=== PATIENT | female | born 1975 | race Caucasian/White ===

== ENCOUNTER → 2016-10-12 | Outpatient (CLI) | payer OTHER ==
[~2016-10-12] MED LIST: GADAVIST IV PRN; LANS30CA12 PO; LEVO150C2 PO; LIOT1TAB10 PO; MEDR150I IM; METO25TA3 PO; MULT-506 PO; SNQ50 PO
--- NOTE | 2016-10-12 09:15 | DIAGNOSTIC IMAGING REPORT ---
MRI OF THE BRAIN COMBO CLINICAL HISTORY: Migraine headache. Skin tingling and numbness. COMPARISON STUDY: MRI of the brain dated 10/22/2008. TECHNIQUE: MRI of the brain was performed utilizing various T1 and T2-weighted sequences in the axial, sagittal, and coronal planes. Contrast-enhanced sequences were acquired following the administration of 9.5 cc of Gadavist. FINDINGS: Brain parenchyma: The brain parenchyma is normal in appearance. There is no hemorrhage or mass effect. There is no restricted diffusion to suggest acute ischemia. No enhancing mass lesion is identified on the postcontrast images. Garibay-white matter differentiation is preserved. No extra-axial fluid collection is seen. 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 The cerebellar tonsils are normal in configuration. Ventricles, sulci, and cisterns: Normal in configuration. Pituitary and sella: Unremarkable. Intracranial vasculature: Normal flow voids are maintained at the skull base. Orbits: The bony orbits are grossly intact. Orbital contents are normal in appearance. Sinuses and mastoids: Clear. Calvarium: Unremarkable. Cervical cord: Partially visualized cervical spinal cord is normal in morphology and signal intensity. IMPRESSION: No acute intracranial abnormality. Electronically signed by: Alex Sweeney M.D. 10/12/2016 9:13 AM Dictated Date/Time: 10/12/2016 9:11 AM
== END | disposition home or self-care (01) ==
LOC: C.MRI 08:18
PROVIDERS: ATTEND Psychiatry & Neurology Neurology
DX: G43.909 Migraine, unspecified, not intractable, without status migrainosus (principal); R20.0 Anesthesia of skin; R20.2 Paresthesia of skin; R20.8 Other disturbances of skin sensation

== ENCOUNTER 2016-12-21 16:23 | Inpatient (IN) | payer OTHER ==
[~2016-12-21] VITALS: Ht 172.7 cm; Wt 96.3 kg
[~2016-12-21 16:23] MED LIST changes: -GADAVIST IV PRN; +SULF800T23 PO
[2016-12-21] MEDS ORDERED: ONDANSETRON INJ 2 MG/ML 2 ML VIAL IV STA (16:40)
[2016-12-21] MEDS ORDERED: VANCOMYCIN 1GM/270ML NSS IV STA (16:40)
[2016-12-21] MEDS ORDERED: KETOROLAC TROMETHAMINE 30 MG/ML VIAL IV STA (16:40)
[2016-12-21] MEDS ORDERED: PIPERACILLIN/TAZOBACTAM 4.5 GM/100ML D5W IV STA (16:40)
[2016-12-21] MEDS ORDERED: SODIUM CHLORIDE 0.9% 1000ML 500 ML IV ONE (16:40)
[2016-12-21] MEDS ORDERED: OPTIRAY 320 IV PRN (17:00)
[2016-12-21] MEDS: MoRPHine SULFATE 4 MG/ML 1 ML CARP\\VIAL IV PRN ×3 (17:12→23:35)
[2016-12-21 17:18] LABS: ISTAT CREATININE 0.8 mg/dl (0.6-1.3); ISTAT HEMOGLOBIN 13.6 g/dl (12.0-16.0); ISTAT IONIZED CALCIUM 1.12 mmol/l (1.12-1.32)
[2016-12-21] MEDS ORDERED: DOXE150C PO (17:30)
[2016-12-21] MEDS ORDERED: FLX10 PO (17:30)
[2016-12-21] MEDS ORDERED: LEVE100021 PO (17:30)
[2016-12-21] MEDS ORDERED: TPRSR/25 PO (17:30)
[2016-12-21 17:40] LABS: BASO % 0.1 %; BASO ABS # 0.01 K/uL (0-0.2); COMPLETE YES; EOS % 0.3 %; IG% 0.1 %; LYMPH % 11.4 %; LYMPH ABS # 0.81 K/uL (1.2-3.4); MEAN CELL VOLUME 88.2 fL (80-100); MEAN CORPUSCULAR HEMOGLOBIN 31.1 pg (25-34); MEAN CORPUSCULAR HGB CONC 35.2 g/dl (32-36); MEAN PLATELET VOLUME 9.3 fL (7.4-10.4); MONO % 9.2 %; NEUT % 78.9 %; PLATELET COUNT 180 K/uL (130-400); RED BLOOD COUNT 4.76 M/uL (4.2-5.4); WHITE BLOOD COUNT 7.09 K/uL (4.8-10.8)
--- NOTE | 2016-12-21 17:44 | DIAGNOSTIC IMAGING REPORT ---
CT ANGIOGRAM OF THE CHEST CLINICAL HISTORY: Atypical chest pain. COMPARISON STUDY: No priors. TECHNIQUE: Following the IV administration of 91 cc of Optiray 320, CT angiogram of the chest was performed from the upper abdomen to the thoracic inlet utilizing the pulmonary embolus protocol. Images are reviewed in the axial, sagittal, and coronal planes. 3-D MIPS images are created and assessed. IV contrast was administered without complication. A dose lowering technique was utilized adhering to the principles of ALARA. CT DOSE: 451.81 mGy.cm FINDINGS: Thyroid: Markedly atrophic. Thoracic aorta: The thoracic aorta is normal in caliber and demonstrates 4-vessel variant arch anatomy. No dissection is seen. Pulmonary vasculature: The pulmonary trunk is normal in caliber. There are no filling defects identified in main, lobar, or segmental pulmonary branches to suggest pulmonary embolus. Heart: The heart is normal in size and configuration, and without pericardial effusion. Lungs and pleural spaces: There are trace pleural effusions. There is a 1.7 cm nodule in the right middle lobe with minimal central cavitation. Additional subcentimeter nodule in the right middle lobe as seen on image #112. Additional foci of similar-appearing nodularity are seen in the left lower lobe on images #65, #109, and #149, the right upper lobe on image #168, and in the left upper lobe on image #192. Significant dependent atelectasis is observed. The trachea and central airways are clear. Mediastinum: There is no mediastinal lymphadenopathy. Denise: Clear. Axillae: There is no axillary lymphadenopathy. Upper abdomen: There is a small hiatal hernia. Partially visualized upper abdominal viscera is otherwise within normal limits. Skeletal structures: No lytic or blastic bony lesions are seen. IMPRESSION: 1. There is no evidence of pulmonary embolus in the main, lobar, or segmental pulmonary arteries. 2. There are foci of irregular nodularity scattered throughout both lungs as above. The largest is seen in the right middle lobe and measures 1.7 cm, and contains central cavitation. This likely represents an infectious/inflammatory pneumonitis. Differential considerations include septic emboli, or much less likely vasculitis or neoplasm. Clinical correlation will be essential. Follow-up CT scan in 2-3 months time is recommended to document resolution. 3. There are trace pleural effusions. 4. No mediastinal or hilar adenopathy is seen. Electronically signed by: Alex Sweeney M.D. 12/21/2016 5:43 PM Dictated Date/Time: 12/21/2016 5:34 PM
[2016-12-21 17:49] LABS: PARTIAL THROMBOPLASTIN RATIO 1.1; PROTHROMBIN TIME (PATIENT) 11.2 SECONDS (9.0-12.0)
[2016-12-21 17:57] LABS: ALT/SGPT 159 U/L (12-78); AST/SGOT 95 U/L (15-37); BLOOD UREA NITROGEN 9 mg/dl (7-18); BUN/CREATININE RATIO 10.6 (10-20); CALCIUM 9.1 mg/dl (8.5-10.1); CARBON DIOXIDE 21 mmol/L (21-32); CHLORIDE 106 mmol/L (98-107); CREATININE 0.88 mg/dl (0.60-1.20); GLUCOSE 102 mg/dl (70-99); MAGNESIUM 2.2 mg/dl (1.8-2.4); POTASSIUM 3.5 mmol/L (3.5-5.1); SODIUM 137 mmol/L (136-145)
[2016-12-21 18:07] LABS: ALB/GLOB RATIO 0.8 (0.9-2); ALKALINE PHOSPHATASE 110 U/L (45-117)
[2016-12-21] MEDS ORDERED: SODIUM CHLORIDE 0.9% 1000ML 1,000 ML IV STA (18:11)
--- NOTE | 2016-12-21 18:17 | DIAGNOSTIC IMAGING REPORT ---
CHEST ONE VIEW PORTABLE CLINICAL HISTORY: Sepsis CHEST PAIN COMPARISON STUDY: No previous studies for comparison. FINDINGS: The heart is normal in size. There is no failure. There are mildly increased right basilar markings, atelectatic versus inflammatory.[ IMPRESSION: Increased right basilar markings, atelectatic versus inflammatory. Electronically signed by: Juan M Matthew M.D. 12/21/2016 6:16 PM Dictated Date/Time: 12/21/2016 6:14 PM
[2016-12-21 18:51] LABS: URINE APPEARANCE CLEAR (CLEAR); URINE BILIRUBIN NEG (NEG); URINE COLOR YELLOW; URINE EPITHELIAL CELL AUTO >30 /lpf (0-5); URINE NITRITE NEG (NEG); URINE PH 5.5 (4.5-7.5); URINE SPECIFIC GRAVITY > 1.045 (1.000-1.030); UROBILINOGEN NEG (NEG)
[2016-12-21 18:56] LABS: MANUAL MICROSCOPIC REQUIRED? NO; REVIEW REQ? YES
--- NOTE | 2016-12-21 19:00 | EMERGENCY ROOM VISIT NOTE ---
History Report prepared by Tim: Carlos Shay Under the Supervision of: Dr. Alex Valencia M.D. First contact with patient: 16:35 Chief Complaint: CARDIAC ASSESSMENT Stated Complaint: SPIDER BITE, CHEST PAIN Nursing Triage Summary: pt reports 1 week ago bit by a spider started on abx for this on Sat. today started with R side cp today that radiates into back , nothing makes it feel better , hurts to take a deep breath History of Present Illness The patient is a 41 year old female who presents to the Emergency Room with complaints of a constant right sided chest pain that began at 1500. She rates her pain as a 9/10 in severity. She reports that her pain is worsened with a deep breath. The patient states that she received a bite over a week ago on her right lower extremity, which she believes is from a spider. She states that the site of the bite was about a dime size a week ago. She reports that the site worsened and her leg became swollen, which prompted her to report to the [facility] two days ago. The patient states that they gave her Bactrim, she has had 5 doses. She states that they told her that if her symptoms became worse, she needed to report to the ED. The patient reports that last night she started to experience a headache, which she took her migraine medication for. She states that she also noticed that her bite site was burning. The patient states last night she experienced diaphoresis and was "soaked in sweat". She states that today, she started to experience right sided chest pain and headache, which prompted her to report to the ED. The patient states that her headache is not similar to her normal migraines, because her migraines are one sided and her current headache is all around her head. She reports that if she sneezes or coughs, her headache worsens. The patient admits that she ate today and took her regular medication. She reports that she has a history of PVCs, thyroidectomy, and migraines. The patient denies medication allergies, fever, diarrhea, vomiting, taking a blood thinner, any recent travel , and a history of blood clots in her lungs or legs. Source of History: patient Onset: 1500 Position: chest (right) Symptom Intensity: 9/10 Timing: constant Associated Symptoms: + headache, + diaphoresis, + rash, No fevers, No vomiting, No diarrhea Review of Systems See HPI for pertinent positives & negatives. A total of 10 systems reviewed and were otherwise negative. Past Medical & Surgical Medical Problems: (1) Lowe's Esophagus (2) Hypertension Nos (3) Hypothyroidism Nos (4) Migraines (5) Reflux Esophagitis (6) Umbilical Hernia Surgical Problems: (1) History of umbilical hernia repair Family History FH: hypertension Social History Smoking Status: Never Smoker Alcohol Use: none Marital Status: Occupation Status: employed Current/Historical Medications Scheduled Cyclobenzaprine HCl (Cyclobenzaprine HCl), 1 TAB PO TID Doxepin Hcl (Doxepin), 1 CAP PO HS Levetiracetam (Levetiracetam), 1 TAB PO BID Levothyroxine Sodium (Tirosint), 1 CAP PO DAILY Metoprolol Succinate (Metoprolol Succinate ER), 1 TAB PO DAILY Multivitamin (Multivitamin), 1 TAB PO DAILY Sulfa/Trimethoprim (Bactrim Ds 800MG/160MG), 1 TAB PO BID Allergies Coded Allergies: NO KNOWN DRUG ALLERGIES (Verified Allergy, Unknown, ., 12/21/16) Physical Exam Vital Signs Date Time Temp Pulse Resp B/P (MAP) Pulse Ox O2 Delivery O2 Flow Rate FiO2 12/21/16 20:00 149/118 12/21/16 18:23 110 16 99 12/21/16 18:23 110 16 99 12/21/16 18:22 105 18 153/102 100 Room Air 12/21/16 18:21 153/102 12/21/16 18:21 153/102 12/21/16 18:18 112 14 99 12/21/16 18:13 108 17 98 12/21/16 18:08 113 17 98 12/21/16 18:03 108 14 100 12/21/16 17:58 109 12 99 12/21/16 17:53 106 13 100 12/21/16 17:53 106 13 100 12/21/16 17:48 108 14 100 12/21/16 17:43 112 17 100 12/21/16 17:38 116 22 142/90 98 12/21/16 17:38 142/90 12/21/16 17:37 113 18 142/90 99 Room Air 12/21/16 17:18 123 19 100 12/21/16 17:16 99 Nasal Cannula 2.0 12/21/16 17:13 129 18 159/97 99 Nasal Cannula 2.0 12/21/16 17:13 127 20 99 12/21/16 17:11 159/97 12/21/16 17:11 159/97 12/21/16 17:08 125 20 12/21/16 17:05 137 12/21/16 16:30 36.5 150 20 134/81 98 Room Air Physical Exam GENERAL: Patient is in moderate distress secondary to pain. HEENT: No acute trauma, normocephalic atraumatic, mucous membranes moist, no nasal congestion, no scleral icterus. NECK: No stridor, no adenopathy, no meningismus, trachea is midline. LUNGS: Clear to auscultation bilaterally, no wheeze, no rhonchi, breath sounds equal. HEART: Tachycardia with regular rhythm and no murmurs. ABDOMEN: Soft, nontender, bowel sounds positive, no hernias, no peritonitis. EXTREMITIES: Right lower extremity is swollen compared to left. Erythematous, draining, tender lesion to the anterior proximal leg. Outlined area of redness has spread beyond the borders. NEUROLOGIC: Oriented x 3, no acute motor or sensory deficits, no focal weakness. SKIN: No rash, no jaundice, no diaphoresis. Medical Decision & Procedures ER Provider Diagnostic Interpretation: Radiology results as stated below per my review and radiologist interpretation: CT ANGIOGRAM OF THE CHEST CLINICAL HISTORY: Atypical chest pain. COMPARISON STUDY: No priors. TECHNIQUE: Following the IV administration of 91 cc of Optiray 320, CT angiogram of the chest was performed from the upper abdomen to the thoracic inlet utilizing the pulmonary embolus protocol. Images are reviewed in the axial, sagittal, and coronal planes. 3-D MIPS images are created and assessed. IV contrast was administered without complication. A dose lowering technique was utilized adhering to the principles of ALARA. CT DOSE: 451.81 mGy.cm FINDINGS: Thyroid: Markedly atrophic. Thoracic aorta: The thoracic aorta is normal in caliber and demonstrates 4-vessel variant arch anatomy. No dissection is seen. Pulmonary vasculature: The pulmonary trunk is normal in caliber. There are no filling defects identified in main, lobar, or segmental pulmonary branches to suggest pulmonary embolus. Heart: The heart is normal in size and configuration, and without pericardial effusion. Lungs and pleural spaces: There are trace pleural effusions. There is a 1.7 cm nodule in the right middle lobe with minimal central cavitation. Additional subcentimeter nodule in the right middle lobe as seen on image #112. Additional foci of similar-appearing nodularity are seen in the left lower lobe on images #65, #109, and #149, the right upper lobe on image #168, and in the left upper lobe on image #192. Significant dependent atelectasis is observed. The trachea and central airways are clear. Mediastinum: There is no mediastinal lymphadenopathy. Denise: Clear. Axillae: There is no axillary lymphadenopathy. Upper abdomen: There is a small hiatal hernia. Partially visualized upper abdominal viscera is otherwise within normal limits. Skeletal structures: No lytic or blastic bony lesions are seen. IMPRESSION: 1. There is no evidence of pulmonary embolus in the main, lobar, or segmental pulmonary arteries. 2. There are foci of irregular nodularity scattered throughout both lungs as above. The largest is seen in the right middle lobe and measures 1.7 cm, and contains central cavitation. This likely represents an infectious/inflammatory pneumonitis. Differential considerations include septic emboli, or much less likely vasculitis or neoplasm. Clinical correlation will be essential. Follow-up CT scan in 2-3 months time is recommended to document resolution. 3. There are trace pleural effusions. 4. No mediastinal or hilar adenopathy is seen. Electronically signed by: Alex Sweeney M.D. 12/21/2016 5:43 PM Dictated Date/Time: 12/21/2016 5:34 PM CHEST ONE VIEW PORTABLE CLINICAL HISTORY: Sepsis CHEST PAIN COMPARISON STUDY: No previous studies for comparison. FINDINGS: The heart is normal in size. There is no failure. There are mildly increased right basilar markings, atelectatic versus inflammatory.[ IMPRESSION: Increased right basilar markings, atelectatic versus inflammatory. Electronically signed by: Juan M Matthew M.D. 12/21/2016 6:16 PM Dictated Date/Time: 12/21/2016 6:[address] RIGHT LOWER LEG NO CONTRAST CT DOSE: 260.71 mGy.cm CLINICAL HISTORY: Leg swelling. Spider bite. Possible necrotizing fasciitis. TECHNIQUE: Helical images were acquired in the transverse plane. No intravenous contrast was administered. Sagittal and coronal reformatted images were acquired. A dose lowering technique was utilized adhering to the principles of ALARA. COMPARISON STUDY: None. FINDINGS: No fractures are visualized. There are no destructive lesions to indicate acute osteomyelitis. There is skin thickening and infiltration of the subcutaneous fat involving the anterior lower leg. This is most pronounced anteromedially 7 cm inferior to the tibial plafond where there is a 1.5 cm ill-defined soft tissue density contiguous with overlying cutaneous thickening. Given the limitations of a noncontrast study, there are no fluid collections to indicate a drainable abscess. No air is visualized within the soft tissues to indicate a necrotizing fasciitis. IMPRESSION: 1. No evidence of fracture 2. No evidence of osteomyelitis 3. There is no air within the soft tissues to indicate a necrotizing fasciitis 4. Skin thickening and infiltration the subcutaneous fat involving the anterior lower leg. This is most pronounced 7 cm inferior to the tibial plafond. Given the clinical history, the findings are likely infectious/inflammatory Electronically signed by: Juan M Matthew M.D. 12/21/2016 7:05 PM Dictated Date/Time: 12/21/2016 6:59 PM Laboratory Results 12/21/16 17:00 Red Blood Count 4.76, Mean Corpuscular Volume 88.2, Mean Corpuscular Hemoglobin 31.1, Mean Corpuscular Hemoglobin Concent 35.2, Mean Platelet Volume 9.3, Neutrophils (%) (Auto) 78.9, Lymphocytes (%) (Auto) 11.4, Monocytes (%) (Auto) 9.2, Eosinophils (%) (Auto) 0.3, Basophils (%) (Auto) 0.1, Neutrophils # (Auto) 5.59, Lymphocytes # (Auto) 0.81, Monocytes # (Auto) 0.65, Eosinophils # (Auto) 0.02, Basophils # (Auto) 0.01 12/21/16 17:00 Test 12/21/16 17:00 12/21/16 17:04 12/21/16 17:08 12/21/16 18:35 White Blood Count 7.09 K/uL (4.8-10.8) Red Blood Count 4.76 M/uL (4.2-5.4) Hemoglobin 14.8 g/dL (12.0-16.0) Hematocrit 42.0 % (37-47) Mean Corpuscular Volume 88.2 fL (80-100) Mean Corpuscular Hemoglobin 31.1 pg (25-34) Mean Corpuscular Hemoglobin Concent 35.2 g/dl (32-36) Platelet Count 180 K/uL (130-400) Mean Platelet Volume 9.3 fL (7.4-10.4) Neutrophils (%) (Auto) 78.9 % Lymphocytes (%) (Auto) 11.4 % Monocytes (%) (Auto) 9.2 % Eosinophils (%) (Auto) 0.3 % Basophils (%) (Auto) 0.1 % Neutrophils # (Auto) 5.59 K/uL (1.4-6.5) Lymphocytes # (Auto) 0.81 K/uL (1.2-3.4) Monocytes # (Auto) 0.65 K/uL (0.11-0.59) Eosinophils # (Auto) 0.02 K/uL (0-0.5) Basophils # (Auto) 0.01 K/uL (0-0.2) RDW Standard Deviation 42.0 fL (36.4-46.3) RDW Coefficient of Variation 13.0 % (11.5-14.5) Immature Granulocyte % (Auto) 0.1 % Immature Granulocyte # (Auto) 0.01 K/uL (0.00-0.02) Prothrombin Time 11.2 SECONDS (9.0-12.0) Prothromb Time International Ratio 1.0 (0.9-1.1) Activated Partial Thromboplast Time 28.5 SECONDS (21.0-31.0) Partial Thromboplastin Ratio 1.1 Est Creatinine Clear Calc Drug Dose 102.2 ml/min Estimated GFR () 94.6 Estimated GFR (Non- 81.6 BUN/Creatinine Ratio 10.6 (10-20) Calcium Level 9.1 mg/dl (8.5-10.1) Magnesium Level 2.2 mg/dl (1.8-2.4) Total Bilirubin 0.4 mg/dl (0.2-1) Aspartate Amino Transf (AST/SGOT) 95 U/L (15-37) Alanine Aminotransferase (ALT/SGPT) 159 U/L (12-78) Alkaline Phosphatase 110 U/L (45-117) Total Protein 8.4 gm/dl (6.4-8.2) Albumin 3.8 gm/dl (3.4-5.0) Globulin 4.6 gm/dl (2.5-4.0) Albumin/Globulin Ratio 0.8 (0.9-2) Thyroid Stimulating Hormone (TSH) 5.310 uIu/ml (0.300-4.500) Free Thyroxine 1.24 ng/dl (0.80-1.60) Lyme Disease IgG Antibody NEG (NEG) Lyme Disease IgM Antibody NEG (NEG) Bedside Lactic Acid Venous 1.29 mmol/L (0.90-1.70) Bedside Hemoglobin 13.6 g/dl (12.0-16.0) Bedside Hematocrit 40 % (37-47) Bedside Sodium 139 mEq/L (135-144) Bedside Potassium 3.7 mEq/L (3.3-5.0) Bedside Chloride 106 mEq/L (101-112) Bedside Total CO2 23 mEq/l (24-31) Anion Gap 15.0 mmol/L (16-25) Bedside Blood Urea Nitrogen 9 mg/dl (7-18) Bedside Creatinine 0.8 mg/dl (0.6-1.3) Bedside Glucose (other) 107 mg/dl (70-99) Bedside Ionized Calcium ([place]) 1.12 mmol/l (1.12-1.32) Urine Color YELLOW Urine Appearance CLEAR (CLEAR) Urine pH 5.5 (4.5-7.5) Urine Specific [place] > 1.045 (1.000-1.030) Urine Protein NEG (NEG) Urine Glucose (UA) NEG (NEG) Urine Ketones NEG (NEG) Urine Occult Blood NEG (NEG) Urine Nitrite NEG (NEG) Urine Bilirubin NEG (NEG) Urine Urobilinogen NEG (NEG) Urine Leukocyte Esterase MODERATE (NEG) Urine WBC (Auto) 10-30 /hpf (0-5) Urine RBC (Auto) 0-4 /hpf (0-4) Urine Hyaline Casts (Auto) 1-5 /lpf (0-5) Urine Epithelial Cells (Auto) >30 /lpf (0-5) Urine Bacteria (Auto) NEG (NEG) Laboratory results reviewed by me. Medications Administered Medications (Trade) Dose Ordered Sig/Lesli Route Start Time Stop Time Status Last Admin Dose Admin Sodium Chloride 500 ml @ 999 mls/hr Q31M ONCE IV 12/21/16 16:40 12/21/16 17:10 DC 12/21/16 17:11 999 MLS/HR Piperacillin Sod/ Tazobactam Sod (Zosyn Iv) 4.5 gm ONE STAT IV 12/21/16 16:40 12/21/16 16:45 DC 12/21/16 17:11 4.5 GM Vancomycin HCl (Vancomycin 1gm/ 270ml Nss) 1 gm ONE STAT IV 12/21/16 16:40 12/21/16 16:45 DC 12/21/16 17:37 1 GM Ondansetron HCl (Zofran Inj) 4 mg NOW STAT IV 12/21/16 16:40 12/21/16 16:45 DC 12/21/16 17:12 4 MG Morphine Sulfate (MoRPHine SULFATE INJ) 4 mg Q15M PRN IV 12/21/16 16:45 12/21/16 21:39 DC 12/21/16 20:33 4 MG Ketorolac Tromethamine (Toradol Inj) 30 mg NOW STAT IV 12/21/16 16:40 12/21/16 16:45 DC 12/21/16 17:12 30 MG Sodium Chloride 1,000 ml @ 999 mls/hr Q1H1M STAT IV 12/21/16 18:11 12/21/16 19:11 DC 12/21/16 18:21 999 MLS/HR Ondansetron HCl (Zofran Inj) 4 mg Q6H PRN IV 12/21/16 20:00 01/20/17 19:59 12/21/16 23:34 4 MG ECG Indication: chest pain Rate (beats per minute): 143 Rhythm: sinus tachycardia Findings: nonspecific-ST abn (diffuse), no acute ischemic change, no ectopy ED Course 1635: The patient was evaluated in room C05. A complete history and physical exam was performed. 1640: Ordered Toradol Injection 30 mg IV, Zofran Injection 4 mg IV, Vancomycin HCl 1 gm IV, Zosyn 4.5 gm IV, Sodium Chloride 500 ml @ 999 mls/hr IV. 1645: Ordered Morphine Sulfate 4 mg IV. 1811: Ordered Sodium Chloride 1000 ml @ 999 mls/hr IV. 1831: I reevaluated the patient and she is feeling better. 8: I reevaluated the patient and updated her on her results. I discussed the treatment plan and she agreed. The patient will be further evaluated. 1926: I discussed the patients case with Dr. Bueno, [facility] Hospitalist. He understands the patients condition and agrees to accept the patient. The patient will be further evaluated. Medical Decision The patient is a 41 year old female who presents to the ED with complaints of constant chest pain that began at 1500. Differential diagnoses considered include infection, sepsis, DVT, PE, pneumonia, pneumothorax, dehydration, anemia , electrolyte imbalance, dysrhythmia, and MO. There is no leukocytosis or concerning anemia. No significant electrolyte abnormality or kidney failure. There were a few liver enzyme elevations. Lactic acid level is not elevated making severe sepsis less likely. Urinalysis shows contamination, no obvious infection. Chest film does not show any obvious pneumonia or pneumothorax. Chest CT shows possible septic emboli, no PE. Lower extremity CT shows cellulitis, no necrotizing fasciitis. Blood cultures are pending. EKG shows a sinus tachycardia, no acute ischemia. Cardiac enzyme testing times one does not suggest acute cardiac injury. The patient presented quite uncomfortable. She was tachycardic. She was aggressively managed. She received IV saline, IV morphine and IV Zofran, she was given IV Toradol. The patient received IV Zosyn and IV vancomycin as antibiotic coverage. She received IV Phenergan for additional nausea control. The patient has made marked improvement with her treatment. Her heart rate has decreased, she is more comfortable. Admission/observation is warranted. She has a significant infection in her right lower extremity that has become systemic Medication Reconcilliation Current Medication List: was personally reviewed by me Blood Pressure Screening Patient's blood pressure: Elevated blood pressure Blood pressure disposition: Elevated BP felt to be situational Consults Time Called: 1926 Consulting Physician: Dr. Bueno [facility] Hospitalist Returned Call: 1926 I discussed the patients case with Dr. Bueno, [facility] Hospitalist. He understands the patients condition and agrees to accept the patient. The patient will be further evaluated. Impression Primary Impression: Cellulitis of right lower extremity Additional Impressions: Right-sided chest pain Septic embolism Critical Care I have personally spent greater than 30 minutes of critical care time in the direct management of this patient. This includes bedside care, interpretation of diagnostic studies and testing, discussion with consultants, the patient, and family members, and other required patient management activities. This 30 minutes is in excess of all separately billable procedures. Scribe Attestation The scribe's documentation has been prepared under my direction and personally reviewed by me in its entirety. I confirm that the note above accurately reflects all work, treatment, procedures, and medical decision making performed by me. Departure Information Dispostion Being Evaluated By Hospitalist Referrals Mely Vázquez [email or web address]. (PCP) Patient Instructions My [facility] Problem Qualifiers
--- NOTE | 2016-12-21 19:06 | DIAGNOSTIC IMAGING REPORT ---
CT RIGHT LOWER LEG NO CONTRAST CT DOSE: 260.71 mGy.cm CLINICAL HISTORY: Leg swelling. Spider bite. Possible necrotizing fasciitis. TECHNIQUE: Helical images were acquired in the transverse plane. No intravenous contrast was administered. Sagittal and coronal reformatted images were acquired. A dose lowering technique was utilized adhering to the principles of ALARA. COMPARISON STUDY: None. FINDINGS: No fractures are visualized. There are no destructive lesions to indicate acute osteomyelitis. There is skin thickening and infiltration of the subcutaneous fat involving the anterior lower leg. This is most pronounced anteromedially 7 cm inferior to the tibial plafond where there is a 1.5 cm ill-defined soft tissue density contiguous with overlying cutaneous thickening. Given the limitations of a noncontrast study, there are no fluid collections to indicate a drainable abscess. No air is visualized within the soft tissues to indicate a necrotizing fasciitis. IMPRESSION: 1. No evidence of fracture 2. No evidence of osteomyelitis 3. There is no air within the soft tissues to indicate a necrotizing fasciitis 4. Skin thickening and infiltration the subcutaneous fat involving the anterior lower leg. This is most pronounced 7 cm inferior to the tibial plafond. Given the clinical history, the findings are likely infectious/inflammatory Electronically signed by: Juan M Matthew M.D. 12/21/2016 7:05 PM Dictated Date/Time: 12/21/2016 6:59 PM
[2016-12-21 19:09] LABS: ZZUR CULT IF INDIC CLEAN CATCH YES
[2016-12-21] MEDS ORDERED: NITROGLYCERIN 0.4 MG SL PER TAB CHARGE SL PRN (20:00)
[2016-12-21] MEDS ORDERED: ACETAMINOPHEN 325 MG TAB PO PRN (20:00)
[2016-12-21] MEDS ORDERED: MAGNESIUM HYDROXIDE SUSP 30 ML UDC PO PRN (20:00)
[2016-12-21] MEDS ORDERED: ALUMINUM/MAGNESIUM/SIMETH (MAALOX MAX) 30 ML UDC PO PRN (20:00)
[2016-12-21] MEDS ORDERED: PROMETHAZINE HCL INJ 6.25 MG in SODIUM CHLORIDE 0.9% 50ML 50 ML IV STA (20:16)
[2016-12-21] MEDS ORDERED: VANCOMYCIN CONSULT ACTIVE PRN (20:45)
[2016-12-21] MEDS ORDERED: PIPERACILL/TAZOBAC CONSULT ACTIVE PRN (20:45)
--- NOTE | 2016-12-21 20:50 | History and Physical ---
History & Physical Date & Time of Service: Dec 21, 2016 at 20:18 Chief Complaint: Spider Bite, Chest Pain Primary Care Physician: Mely Vázquez C.R.NZhengPZheng History of Present Illness Source: patient, family This is a 41 y/o F w/ a h/o PVCs, migraines, who presents with right sided chest pain at 9/10. Pain is worse with inspiration. She reports that she was out on a hay ride last week and the next morning noted a tiny red spot on her right anterior leg that she thought was a mosquito bite. She then noted the lesion to get larger and more erythematous. Her leg started swelling and becoming more tender. She eventually went to an urgent care and got bactrim for a possible infected spider bite. The physician did not think it was brown recluse bite. She has had 5 doses of the Bactrim. And the wound has gotten bigger. She has had chills and sweats x 2 days. She has a history of migraines and has headaches currently that are different from her migraines. Denies recent travel, recent surgery Past Medical/Surgical History Medical Problems: (1) Migraines Status: Chronic Surgical Problems: (1) History of umbilical hernia repair Status: Resolved Family History FH: hypertension Social History Smoking Status: Never Smoker Drug Use: none Marital Status: Housing status: lives with family Occupational Status: employed Immunizations History of Influenza Vaccine: Unknown History of Tetanus Vaccine?: Unknown History of Pneumococcal: Unknown History of Hepatitis B Vaccine: Unknown Multi-Drug Resistant Organisms History of MDRO: No Allergies Coded Allergies: NO KNOWN DRUG ALLERGIES (Verified Allergy, Unknown, ., 12/21/16) Home Medications Scheduled Cyclobenzaprine HCl (Cyclobenzaprine HCl), 1 TAB PO TID Doxepin Hcl (Doxepin), 1 CAP PO HS Levetiracetam (Levetiracetam), 1 TAB PO BID Levothyroxine Sodium (Tirosint), 1 CAP PO DAILY Metoprolol Succinate (Metoprolol Succinate ER), 1 TAB PO DAILY Multivitamin (Multivitamin), 1 TAB PO DAILY Sulfa/Trimethoprim (Bactrim Ds 800MG/160MG), 1 TAB PO BID Review of Systems Constitutional: + chills, + sweats, No fever Respiratory: No cough, No sputum, No wheezing, No shortness of breath, No dyspnea on exertion, No dyspnea at rest Cardiovascular: + chest pain, + edema, + palpitations Musculoskeletal: + muscle pain, + swelling, + calf pain Genitourinary - Female: No dysuria, No urinary frequency, No urinary urgency, No urinary incontinence Physical Exam Vital Signs Date Time Temp Pulse Resp B/P (MAP) Pulse Ox O2 Delivery O2 Flow Rate FiO2 12/21/16 20:00 149/118 12/21/16 18:23 110 16 99 12/21/16 18:22 105 18 153/102 100 Room Air 12/21/16 18:21 153/102 12/21/16 18:18 112 14 99 12/21/16 18:13 108 17 98 12/21/16 18:08 113 17 98 12/21/16 18:03 108 14 100 12/21/16 17:58 109 12 99 12/21/16 17:53 106 13 100 12/21/16 17:48 108 14 100 12/21/16 17:43 112 17 100 12/21/16 17:38 116 22 142/90 98 12/21/16 17:37 113 18 142/90 99 Room Air 12/21/16 17:18 123 19 100 12/21/16 17:16 99 Nasal Cannula 2.0 12/21/16 17:13 129 18 159/97 99 Nasal Cannula 2.0 12/21/16 17:13 127 20 99 12/21/16 17:11 159/97 12/21/16 17:08 125 20 12/21/16 17:05 137 12/21/16 16:30 36.5 150 20 134/81 98 Room Air General Appearance: no apparent distress Eyes: PERRL, EOMI ENT: hearing grossly normal Neck: no adenopathy, no JVD Respiratory/Chest: lungs clear, normal breath sounds, no respiratory distress, no accessory muscle use Cardiovascular: no murmur, normal peripheral pulses, + tachycardia Abdomen/GI: normal bowel sounds, non tender, soft Extremities/Musculoskelatal: + inflammation, + pedal edema, + swelling, + pertinent finding (right anterior leg with open wound, areas of darkening skin, drainage of pus, erythema, tenderness expanding beyond border. 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, alert, normal mood/affect, oriented x 3 Diagnostics Laboratory Results Results Past 24 Hours Test 12/21/16 17:00 12/21/16 17:04 12/21/16 17:08 12/21/16 18:35 Range/Units White Blood Count 7.09 4.8-10.8 K/uL Red Blood Count 4.76 4.2-5.4 M/uL Hemoglobin 14.8 12.0-16.0 g/dL Hematocrit 42.0 37-47 % Mean Corpuscular Volume 88.2 80-100 fL Mean Corpuscular Hemoglobin 31.1 25-34 pg Mean Corpuscular Hemoglobin Concent 35.2 32-36 g/dl Platelet Count 180 130-400 K/uL Mean Platelet Volume 9.3 7.4-10.4 fL Neutrophils (%) (Auto) 78.9 % Lymphocytes (%) (Auto) 11.4 % Monocytes (%) (Auto) 9.2 % Eosinophils (%) (Auto) 0.3 % Basophils (%) (Auto) 0.1 % Neutrophils # (Auto) 5.59 1.4-6.5 K/uL Lymphocytes # (Auto) 0.81 1.2-3.4 K/uL Monocytes # (Auto) 0.65 0.11-0.59 K/uL Eosinophils # (Auto) 0.02 0-0.5 K/uL Basophils # (Auto) 0.01 0-0.2 K/uL RDW Standard Deviation 42.0 36.4-46.3 fL RDW Coefficient of Variation 13.0 11.5-14.5 % Immature Granulocyte % (Auto) 0.1 % Immature Granulocyte # (Auto) 0.01 0.00-0.02 K/uL Prothrombin Time 11.2 9.0-12.0 SECONDS Prothromb Time International Ratio 1.0 0.9-1.1 Activated Partial Thromboplast Time 28.5 21.0-31.0 SECONDS Partial Thromboplastin Ratio 1.1 Sodium Level 137 136-145 mmol/L Potassium Level 3.5 3.5-5.1 mmol/L Chloride Level 106 98-107 mmol/L Carbon Dioxide Level 21 21-32 mmol/L Anion Gap 10.0 15.0 16-25 mmol/L Blood Urea Nitrogen 9 7-18 mg/dl Creatinine 0.88 0.60-1.20 mg/dl Est Creatinine Clear Calc Drug Dose 102.2 ml/min Estimated GFR () 94.6 Estimated GFR (Non- 81.6 BUN/Creatinine Ratio 10.6 10-20 Random Glucose 102 70-99 mg/dl Calcium Level 9.1 8.5-10.1 mg/dl Magnesium Level 2.2 1.8-2.4 mg/dl Total Bilirubin 0.4 0.2-1 mg/dl Aspartate Amino Transf (AST/SGOT) 95 15-37 U/L Alanine Aminotransferase (ALT/SGPT) 159 12-78 U/L Alkaline Phosphatase 110 45-117 U/L Troponin I < 0.015 0-0.045 ng/ml Total Protein 8.4 6.4-8.2 gm/dl Albumin 3.8 3.4-5.0 gm/dl Globulin 4.6 2.5-4.0 gm/dl Albumin/Globulin Ratio 0.8 0.9-2 Thyroid Stimulating Hormone (TSH) 5.310 0.300-4.500 uIu/ml Free Thyroxine 1.24 0.80-1.60 ng/dl Bedside Lactic Acid Venous 1.29 0.90-1.70 mmol/L Bedside Hemoglobin 13.6 12.0-16.0 g/dl Bedside Hematocrit 40 37-47 % Bedside Sodium 139 135-144 mEq/L Bedside Potassium 3.7 3.3-5.0 mEq/L Bedside Chloride 106 101-112 mEq/L Bedside Total CO2 23 24-31 mEq/l Bedside Blood Urea Nitrogen 9 7-18 mg/dl Bedside Creatinine 0.8 0.6-1.3 mg/dl Bedside Glucose (other) 107 70-99 mg/dl Bedside Ionized Calcium (Samanta) 1.12 1.12-1.32 mmol/l Urine Color YELLOW Urine Appearance CLEAR CLEAR Urine pH 5.5 4.5-7.5 Urine Specific [place] > 1.045 1.000-1.030 Urine Protein NEG NEG Urine Glucose (UA) NEG NEG Urine Ketones NEG NEG Urine Occult Blood NEG NEG Urine Nitrite NEG NEG Urine Bilirubin NEG NEG Urine Urobilinogen NEG NEG Urine Leukocyte Esterase MODERATE NEG Urine WBC (Auto) 10-30 0-5 /hpf Urine RBC (Auto) 0-4 0-4 /hpf Urine Hyaline Casts (Auto) 1-5 0-5 /lpf Urine Epithelial Cells (Auto) >30 0-5 /lpf Urine Bacteria (Auto) NEG NEG Microbiology Results 12/21/16 Blood Culture, Received Pending 12/21/16 Blood Culture, Received Pending 12/21/16 Urine Culture, Received Pending 12/21/16 Gram Stain, Received Pending 12/21/16 Wound Culture, Received Pending Impression Assessment and Plan Right lower ext. cellulitis 2/2 Insect (spider?) bite w/ pulmonary septic emboli - Findings per Chest CT - Vanc, Zosyn- to cover MRSA and Anaerobes - Blood cultures and wound cultures pending - Lyme's titres - Consult ID - Consult Gen surg for possible debridement/i&D - Echo, concern for endocarditis? ? need for TANMAY. - NPO , IV fluids h/o of migraines Keppra H/o of PVC's on metoprolol h/o thyroidectomy levothyrozine TSH at 5 Recommend rechecking in 4-6 weeks after acute illness has resolved DVT proph Heparin - hold if surgery planned Code: Full Resident Physician Supervision Note: I was present with Dr. Klein during the history and exam. I discussed the case with the resident and agree with the findings and plan as documented in the note. Any exceptions or clarifications are listed here: 41 y/o F Hx Hypothyroid, migraines - developed lower ext wound the previous week - may have started as a bite as she does not recall trauma to the area - placed on Bactrim - wound has worsened regardless of compliance - she then developed acute R sided pleuritic CP and presented to the ER. A CTA revealed multiple emboli which are likely septic. Despite this, the pt does not appear septic on admission AAO x 3 S1,2 R Minimal air entry into RLL NT, ND, BS+ No CCE P: Placed on Vanc and Zosyn pending culture results Wound may be developing central necrosis - cultured and surgery consulted for possible debridement Clinical picture is unusual as she does not appear overly toxic despite presumed septic emboli - may need TANMAY if cultures return + although this may not affect duration of treatment if Dx is confirmed ID consulted Cont home Thyroxine and Keppra for Migraine prophylaxis Documented By: Dayton Bueno VTE Prophylaxis VTE Risk Assessment Done? Y/N: Yes Risk Level: Moderate
[2016-12-21 21:25] VITALS: BP 162/94; PULSE 104; TEMP 36.9; O2SAT 96; Ht 172.7 cm; Wt 96.3 kg
[2016-12-21 21:48] LABS: LYME DISEASE AB IGG NEG (NEG); LYME DISEASE AB IGM NEG (NEG)
[2016-12-21] MEDS: CYCLOBENZAPRINE HCL 10 MG TAB PO SCH (22:11)
[2016-12-21] MEDS: DOXEPIN HCL 75 MG CAP PO SCH (22:11)
[2016-12-21] MEDS: LEVETIRACETAM 500 MG TAB PO SCH (22:11)
[2016-12-21] MEDS: PIPERACILL/TAZOBAC IV 3.375 GM in DEXTROSE 5% 100ML 100 ML IV SCH (22:12)
[2016-12-21] MEDS: SODIUM CHLORIDE 0.9% 1000ML 1,000 ML IV SCH (22:12)
[2016-12-21 23:20] VITALS: BP 143/85; PULSE 106; TEMP 36.7; O2SAT 97
[2016-12-21] MEDS: ONDANSETRON INJ 2 MG/ML 2 ML VIAL IV PRN (23:34)
--- NOTE | 2016-12-21 23:38 | Pre-Operative Consultation ---
History General Date of Service: Dec 21, 2016. Chief Complaint: chest pain Stated Complaint: chest pain HPI HPI: The patient is a 41 year old female being seen at the request of Dr. Klein for possible debridement of her right lower extremity. She went on a hay ride last week. Does not recall being bit by anything but a few days later started to notice pain, redness and swelling of her right lower leg. This persisted and she was seen in urgent care. Started on bactrim. Leg swelling continued and she started to develop 9/10 chest pain on right side with deep breaths. Thought she was having heart issues so presented to the ER. Imaging showed evidence of pulmonary septic emboli with a 1.7 cm cavitary lesion right lung. She is on IV abx. Historian: patient Anticipated Procedure: debridement of right lower extremity Procedure Urgency: Emergency Risk Assessment Daily beta augie use?: No Problem List Medical Problems: (1) Cellulitis of right lower extremity Status: Acute (2) Migraines Status: Chronic (3) Right-sided chest pain Status: Acute (4) Septic embolism Status: Acute PSHx: umbilical hernia repair Medical & Surgical History Past Medical History: GERD, hypertension Past Surgical History: hernia repair (umbilical) Family History Family History: cancer, diabetes, gallbladder disease, hypertension Social History Hx Tobacco Use In Past Year?: No Smoking Status: Never Smoker Alcohol: none Drug Use: none Marital status: Housing status: lives with family Occupation status: employed Immunizations Have You Had Influenza Vaccine: Unknown Have You Had Tetanus Vaccine: Unknown History of Pneumococcal: Unknown History Hepatitis B Vaccine: Unknown Allergies Allergies: Coded Allergies: NO KNOWN DRUG ALLERGIES (Verified Allergy, Unknown, ., 12/21/16) Medications Current Inpatient Medications Current Inpatient Medications Medications (Trade) Dose Ordered Sig/Lesli Route Start Time Stop Time Status Last Admin Dose Admin Ioversol (Optiray 320) 111 ml UD PRN IV 12/21/16 17:00 12/25/16 16:59 Sodium Chloride 1,000 ml @ 100 mls/hr Q10H IV 12/21/16 21:45 01/20/17 21:44 12/21/16 22:12 100 MLS/HR Acetaminophen (Tylenol Tab) 650 mg Q4H PRN PO 12/21/16 20:00 01/20/17 19:59 Al Hydrox/Mg Hydrox/Simethicone (Maalox Max Susp) 15 ml Q4H PRN PO 12/21/16 20:00 01/20/17 19:59 Magnesium Hydroxide (Milk Of Magnesia Susp) 30 ml Q12H PRN PO 12/21/16 20:00 01/20/17 19:59 Ondansetron HCl (Zofran Inj) 4 mg Q6H PRN IV 12/21/16 20:00 01/20/17 19:59 Nitroglycerin (Nitrostat Tab) 0.4 mg UD PRN SL 12/21/16 20:00 01/20/17 19:59 Cyclobenzaprine HCl (Flexeril Tab) 10 mg TID PO 12/21/16 21:00 01/20/17 20:59 12/21/16 22:11 10 MG Doxepin HCl (Sinequan Cap) 150 mg HS PO 12/21/16 21:00 01/20/17 20:59 12/21/16 22:11 150 MG Metoprolol Succinate (Toprol Xl Tab) 25 mg DAILY PO 12/22/16 09:00 01/21/17 08:59 Multivitamins (Multivitamin Tab) 1 tab DAILY PO 12/22/16 09:00 01/21/17 08:59 Levetiracetam (Keppra Tab) 1,000 mg BID PO 12/21/16 22:00 01/20/17 21:59 12/21/16 22:11 1,000 MG Levothyroxine Sodium (Synthroid Tab) 150 mcg DAILYBB PO 12/22/16 06:00 01/21/17 05:59 Vancomycin HCl 1250 mg/Sodium Chloride 275 ml @ 125 mls/hr Q10H IV 12/22/16 02:00 01/01/17 01:59 Vancomycin HCl (Consult) 1 ea UD PRN N/A 12/21/16 20:45 01/20/17 20:44 Piperacillin Sod/ Tazobactam Sod 3.375 gm/Dextrose 115 ml @ 28.75 mls/ hr Q8H IV 12/21/16 22:00 12/31/16 21:59 12/21/16 22:12 28.75 MLS/HR Morphine Sulfate (MoRPHine SULFATE INJ) 4 mg Q4 PRN IV 12/21/16 20:45 01/04/17 20:44 Ketorolac Tromethamine (Toradol Inj) 30 mg Q6H PRN IV 12/21/16 20:45 12/26/16 20:44 Piperacillin Sod/ Tazobactam Sod (Consult) 1 ea UD PRN N/A 12/21/16 20:45 01/20/17 20:44 Heparin Sodium (Porcine) (Heparin Sq 5000 Unit/0.5ml) 5,000 unit Q12 SQ 12/22/16 09:00 01/21/17 08:59 Review of Systems Review of Systems Constitutional: chills Eyes: reports: no symptoms ENT: reports: no symptoms reported Cardiovascular: reports: chest pain Respiratory: reports: see HPI Gastrointestinal: no symptoms reported Genitourinary - Female: reports: no symptoms Musculoskeletal: see HPI Integumentary: no symptoms reported Neurologic: reports: headache Psychiatric: reports: no symptoms Physical Exam Physical Exam General Appearance: + WD/WN, No distress Ears, Nose, Throat: + normal ENT inspection Neck: No abnormal inspection, No tracheal deviation Respiratory: No accessory muscle use Cardiovascular: + abnormal rate (tachycardia), No JVD Extremities: + other (RLE with edema, erythema, warmth, central necrotic 3 cm lesion) Neurologic/Psychiatric: 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, No decreased LOC Skin Characteristics: No abnormal color, No cyanosis Diagnostics Labs Labs Results Past 24 Hours Test 12/21/16 17:00 12/21/16 17:04 12/21/16 17:08 12/21/16 18:35 Range/Units White Blood Count 7.09 4.8-10.8 K/uL Red Blood Count 4.76 4.2-5.4 M/uL Hemoglobin 14.8 12.0-16.0 g/dL Hematocrit 42.0 37-47 % Mean Corpuscular Volume 88.2 80-100 fL Mean Corpuscular Hemoglobin 31.1 25-34 pg Mean Corpuscular Hemoglobin Concent 35.2 32-36 g/dl Platelet Count 180 130-400 K/uL Mean Platelet Volume 9.3 7.4-10.4 fL Neutrophils (%) (Auto) 78.9 % Lymphocytes (%) (Auto) 11.4 % Monocytes (%) (Auto) 9.2 % Eosinophils (%) (Auto) 0.3 % Basophils (%) (Auto) 0.1 % Neutrophils # (Auto) 5.59 1.4-6.5 K/uL Lymphocytes # (Auto) 0.81 1.2-3.4 K/uL Monocytes # (Auto) 0.65 0.11-0.59 K/uL Eosinophils # (Auto) 0.02 0-0.5 K/uL Basophils # (Auto) 0.01 0-0.2 K/uL RDW Standard Deviation 42.0 36.4-46.3 fL RDW Coefficient of Variation 13.0 11.5-14.5 % Immature Granulocyte % (Auto) 0.1 % Immature Granulocyte # (Auto) 0.01 0.00-0.02 K/uL Prothrombin Time 11.2 9.0-12.0 SECONDS Prothromb Time International Ratio 1.0 0.9-1.1 Activated Partial Thromboplast Time 28.5 21.0-31.0 SECONDS Partial Thromboplastin Ratio 1.1 Sodium Level 137 136-145 mmol/L Potassium Level 3.5 3.5-5.1 mmol/L Chloride Level 106 98-107 mmol/L Carbon Dioxide Level 21 21-32 mmol/L Anion Gap 10.0 15.0 16-25 mmol/L Blood Urea Nitrogen 9 7-18 mg/dl Creatinine 0.88 0.60-1.20 mg/dl Est Creatinine Clear Calc Drug Dose 102.2 ml/min Estimated GFR () 94.6 Estimated GFR (Non- 81.6 BUN/Creatinine Ratio 10.6 10-20 Random Glucose 102 70-99 mg/dl Calcium Level 9.1 8.5-10.1 mg/dl Magnesium Level 2.2 1.8-2.4 mg/dl Total Bilirubin 0.4 0.2-1 mg/dl Aspartate Amino Transf (AST/SGOT) 95 15-37 U/L Alanine Aminotransferase (ALT/SGPT) 159 12-78 U/L Alkaline Phosphatase 110 45-117 U/L Troponin I < 0.015 0-0.045 ng/ml Total Protein 8.4 6.4-8.2 gm/dl Albumin 3.8 3.4-5.0 gm/dl Globulin 4.6 2.5-4.0 gm/dl Albumin/Globulin Ratio 0.8 0.9-2 Thyroid Stimulating Hormone (TSH) 5.310 0.300-4.500 uIu/ml Free Thyroxine 1.24 0.80-1.60 ng/dl Lyme Disease IgG Antibody NEG NEG Lyme Disease IgM Antibody NEG NEG Bedside Lactic Acid Venous 1.29 0.90-1.70 mmol/L Bedside Hemoglobin 13.6 12.0-16.0 g/dl Bedside Hematocrit 40 37-47 % Bedside Sodium 139 135-144 mEq/L Bedside Potassium 3.7 3.3-5.0 mEq/L Bedside Chloride 106 101-112 mEq/L Bedside Total CO2 23 24-31 mEq/l Bedside Blood Urea Nitrogen 9 7-18 mg/dl Bedside Creatinine 0.8 0.6-1.3 mg/dl Bedside Glucose (other) 107 70-99 mg/dl Bedside Ionized Calcium (Samanta) 1.12 1.12-1.32 mmol/l Urine Color YELLOW Urine Appearance CLEAR CLEAR Urine pH 5.5 4.5-7.5 Urine Specific [place] > 1.045 1.000-1.030 Urine Protein NEG NEG Urine Glucose (UA) NEG NEG Urine Ketones NEG NEG Urine Occult Blood NEG NEG Urine Nitrite NEG NEG Urine Bilirubin NEG NEG Urine Urobilinogen NEG NEG Urine Leukocyte Esterase MODERATE NEG Urine WBC (Auto) 10-30 0-5 /hpf Urine RBC (Auto) 0-4 0-4 /hpf Urine Hyaline Casts (Auto) 1-5 0-5 /lpf Urine Epithelial Cells (Auto) >30 0-5 /lpf Urine Bacteria (Auto) NEG NEG Test 12/21/16 23:00 Range/Units Microbiology Results 12/21/16 Blood Culture, Received Pending 12/21/16 Blood Culture, Received Pending 12/21/16 Urine Culture, Received Pending 12/21/16 Gram Stain, Received Pending 12/21/16 Wound Culture, Received Pending Lab Interpretation Lab Interpretation: labs were reviewed Diagnostic Radiology Diagnostic Radiology CT scan of right lower extremity shows signs of cellulitis IMPRESSION: 1. No evidence of fracture 2. No evidence of osteomyelitis 3. There is no air within the soft tissues to indicate a necrotizing fasciitis 4. Skin thickening and infiltration the subcutaneous fat involving the anterior lower leg. This is most pronounced 7 cm inferior to the tibial plafond. Given the clinical history, the findings are likely infectious/inflammatory Chest CT 1. There is no evidence of pulmonary embolus in the main, lobar, or segmental pulmonary arteries. 2. There are foci of irregular nodularity scattered throughout both lungs as above. The largest is seen in the right middle lobe and measures 1.7 cm, and contains central cavitation. This likely represents an infectious/inflammatory pneumonitis. Differential considerations include septic emboli, or much less likely vasculitis or neoplasm. Clinical correlation will be essential. Follow-up CT scan in 2-3 months time is recommended to document resolution. 3. There are trace pleural effusions. 4. No mediastinal or hilar adenopathy is seen Impression Assessment and Plan Assessment and Plan 41 yr old woman with septic pulmonary emboli likely from right lower extremity cellulitis/ abscess. Will benefit from debridement of necrotic material in the operating room. Wound will be left open to heal. Pt added on schedule for tomorrow. Keep npo until after surgery.
[2016-12-21] MEDS: KETOROLAC TROMETHAMINE 30 MG/ML VIAL IV PRN (23:48)
[2016-12-22] MEDS: VANCOMYCIN INJ 1,250 MG in SODIUM CHLORIDE 0.9% 250ML 250 ML IV SCH ×3 (02:42→20:23)
[2016-12-22] MEDS ORDERED: NURSING VERBAL MED ORDER ONE ×3 (02:45→18:00)
[2016-12-22] MEDS ORDERED: HYDROmorphone INJ 1 MG/ML SYR IV ONE (02:45)
[2016-12-22 03:15] VITALS: BP 130/84; PULSE 103; TEMP 36.8; O2SAT 96
[2016-12-22] MEDS ORDERED: PROMETHAZINE HCL INJ 12.5 MG in SODIUM CHLORIDE 0.9% 50ML 50 ML IV ONE (03:15)
[2016-12-22 05:09] LABS: BASO % 0.3 %; BASO ABS # 0.02 K/uL (0-0.2); COMPLETE YES; EOS % 1.1 %; HEMATOCRIT 34.1 % (37-47); IG% 0.3 %; LYMPH % 19.3 %; LYMPH ABS # 1.23 K/uL (1.2-3.4); MEAN CELL VOLUME 89.5 fL (80-100); MEAN CORPUSCULAR HEMOGLOBIN 31.8 pg (25-34); MEAN CORPUSCULAR HGB CONC 35.5 g/dl (32-36); MEAN PLATELET VOLUME 8.9 fL (7.4-10.4); MONO % 13.3 %; NEUT % 65.7 %; PLATELET COUNT 133 K/uL (130-400); RED BLOOD COUNT 3.81 M/uL (4.2-5.4); WHITE BLOOD COUNT 6.38 K/uL (4.8-10.8)
[2016-12-22] MEDS: LEVOTHYROXINE 150 MCG TAB PO SCH (05:30)
[2016-12-22] MEDS: PIPERACILL/TAZOBAC IV 3.375 GM in DEXTROSE 5% 100ML 100 ML IV SCH ×3 (05:31→22:40)
[2016-12-22 05:38] LABS: CREATININE 0.73 mg/dl (0.60-1.20)
[2016-12-22] MEDS: ONDANSETRON INJ 2 MG/ML 2 ML VIAL IV PRN ×2 (07:41→19:32)
[2016-12-22 07:42] VITALS: BP 137/82; PULSE 112; TEMP 36.7; O2SAT 99
[2016-12-22] MEDS: SODIUM CHLORIDE 0.9% 1000ML 1,000 ML IV SCH (07:42)
[2016-12-22] MEDS: MoRPHine SULFATE 4 MG/ML 1 ML CARP\\VIAL IV PRN (07:42)
[2016-12-22] MEDS: MULTIVITAMIN TAB PO SCH (07:43)
[2016-12-22] MEDS: METOPROLOL SUCC 25MG EXT REL TAB PO SCH (07:43)
[2016-12-22] MEDS: CYCLOBENZAPRINE HCL 10 MG TAB PO SCH ×3 (07:44→19:33)
--- NOTE | 2016-12-22 08:55 | ECHOCARDIOGRAM REPORT ---
*NOTICE TO RECEIVING REPUBLICAN AGENCY This information is strictly Confidential and protected under [place] law. [place] law prohibits you from making any further disclosure of this information unless further disclosure is expressly permitted by the written consent of the person to whom it pertains or is authorized by law. A general authorization for the release of medical or other information is not sufficient for this purpose. Hospital accepts no responsibility if the information is made available to any other person, INCLUDING THE PATIENT. Interpretation Summary * Name: VERONICA WALLACE Study Date: 12/22/2016 06:16 AM BP: 130/84 mmHg * Patient Location: .2T\S\E216\S\1 HR: 103 * : 1975 (M/d/yyyy) Gender: Female Height: 68 in * Age: 41 yrs Ethnicity: CA Weight: 212 lb * Ordering Physician: Melanie Walter * Referring Physician: Self, Referred * Performed By: Ni Aponte RDCS * * Reason For Study: PULMONARY SEPTIC EMBOLI * BSA: 2.1 m2 * -- Conclusions -- * 1. Normal LV size and wall thickness. * 2. Low normal LV systolic function. LVEF 50-55%. No regional wall motion abnormalities. * 3. Normal RV size and function. * 4. No significant valvular pathology. Right sided valves not well visualized. * 5. No prior studies for comparison. Procedure Details * A complete two-dimensional transthoracic echocardiogram was performed (2D, M-mode, Doppler and color flow Doppler). Left Ventricle * The left ventricle is grossly normal size. * There is normal left ventricular wall thickness. * Ejection Fraction = 50-55%. * No regional wall motion abnormalities noted. Right Ventricle * The right ventricle is grossly normal size. * The right ventricular systolic function is qualitatively normal. Atria * The left atrial size is normal. * Right atrial size is normal. * No ASD detected; PFO is not assessed. Mitral Valve * The mitral valve is grossly normal. * There is no mitral valve stenosis. * Significant mitral regurgitation is absent. Tricuspid Valve * The tricuspid valve is not well visualized. * Significant tricuspid regurgitation is absent. Aortic Valve * The aortic valve opens well. * No hemodynamically significant valvular aortic stenosis. * There is no significant aortic regurgitation. Pulmonic Valve * The pulmonary valve is inadequately visualized, but the Doppler data is adequate for interpretation. * Pulmonic stenosis is absent. * There is no significant pulmonary regurgitation. Great Vessels * The aortic root and proximal ascending aorta are normal sized. Pericardium/Pleural * There is no pericardial effusion. Great Vessels * Normal inferior vena cava size and collapsability with sniff indicates a normal right atrial pressure of 3 mmHg MMode 2D Measurements and Calculations IVSd 0.99 cm IVSs 1.2 cm LVIDd 4.9 cm LVIDs 3.5 cm LVPWd 0.98 cm LVPWs 1.4 cm IVS/LVPW 1.0 FS 27.6 % EDV(Teich) 112.9 ml ESV(Teich) 52.5 ml EF(Teich) 53.5 % EDV(cubed) 117.8 ml ESV(cubed) 44.6 ml EF(cubed) 62.1 % % IVS thick 20.8 % % LVPW thick 40.5 % LV mass(C)d 172.1 grams LV mass(C)dI 82.1 grams/m\S\2 LV mass(C)s 153.6 grams LV mass(C)sI 73.3 grams/m\S\2 SV(Teich) 60.4 ml SI(Teich) 28.8 ml/m\S\2 SV(cubed) 73.1 ml SI(cubed) 34.9 ml/m\S\2 Ao root diam 3.2 cm Ao root area 8.2 cm\S\2 LA dimension 2.8 cm LA/Ao 0.87 LVAd ap4 36.0 cm\S\2 LVLd ap4 8.7 cm EDV(MOD-sp4) 130.0 ml LVAs ap4 21.4 cm\S\2 LVLs ap4 7.0 cm ESV(MOD-sp4) 59.4 ml EF(MOD-sp4) 54.3 % LVAd ap2 25.6 cm\S\2 LVLd ap2 8.2 cm EDV(MOD-sp2) 73.2 ml LVAs ap2 16.7 cm\S\2 LVLs ap2 7.3 cm ESV(MOD-sp2) 34.0 ml EF(MOD-sp2) 53.6 % SV(MOD-sp4) 70.6 ml SI(MOD-sp4) 33.7 ml/m\S\2 SV(MOD-sp2) 39.2 ml SI(MOD-sp2) 18.7 ml/m\S\2 Doppler Measurements and Calculations MV E max zenobia 79.1 cm/sec MV A max zenobia 87.3 cm/sec MV E/A 0.91 MV dec time 0.19 sec Ao V2 max 108.6 cm/sec Ao max PG 4.7 mmHg Ao max PG (full) 2.2 mmHg LV V1 max PG 2.5 mmHg LV V1 max 79.1 cm/sec
[2016-12-22] MEDS: LEVETIRACETAM 500 MG TAB PO SCH ×2 (09:51→19:33)
[2016-12-22] MEDS: HEPARIN SOD 5000 UNIT/0.5 ML CARP SQ SCH ×2 (09:52→20:23)
--- NOTE | 2016-12-22 10:18 | Medical Consult ---
Consultation Date of Consultation: Dec 22, 2016. Attending Physician: Alcon Moreau MD, PhD Reason for Consultation: Insect bite, pulmonary septic emboli History of Present Illness 41-year-old female with history of migraine headaches, otherwise in good health , developed a erythematous lesion below her right knee several days ago, was seen in urgent care and given Bactrim for possible infected spider bite. Area became more erythematous and painful, and patient developed fever, chills, sweats, then had onset of severe right-sided pleuritic type chest pain. She came to the emergency department where CT scan showed evidence of probable septic pulmonary emboli. Patient started empirically on vancomycin and Zosyn, and area of erythema on her leg has improved since last night. Currently afebrile. Cultures from the wound growing Staph aureus, sensitivities pending. There are plans for operative debridement of the area later today. Past Medical/Surgical History Or Medical Problems: (1) Cellulitis of right lower extremity Status: Acute (2) Migraines Status: Chronic (3) Right-sided chest pain Status: Acute (4) Septic embolism Status: Acute Medical Problems: (1) Lowe's Esophagus (2) Hypertension Nos (3) Hypothyroidism Nos (4) Migraines (5) Reflux Esophagitis (6) Umbilical Hernia Surgical Problems: (1) History of umbilical hernia repair Family History FH: hypertension Social History Smoking Status: Never Smoker Drug Use: none Marital Status: Occupation Status: employed Allergies Coded Allergies: NO KNOWN DRUG ALLERGIES (Verified Allergy, Unknown, ., 12/21/16) Current Inpatient Medications Current Inpatient Medications Medications (Trade) Dose Ordered Sig/Lesli Route Start Time Stop Time Status Last Admin Dose Admin Ioversol (Optiray 320) 111 ml UD PRN IV 12/21/16 17:00 12/25/16 16:59 Sodium Chloride 1,000 ml @ 100 mls/hr Q10H IV 12/21/16 21:45 01/20/17 21:44 12/22/16 07:42 100 MLS/HR Acetaminophen (Tylenol Tab) 650 mg Q4H PRN PO 12/21/16 20:00 01/20/17 19:59 Al Hydrox/Mg Hydrox/Simethicone (Maalox Max Susp) 15 ml Q4H PRN PO 12/21/16 20:00 01/20/17 19:59 Magnesium Hydroxide (Milk Of Magnesia Susp) 30 ml Q12H PRN PO 12/21/16 20:00 01/20/17 19:59 Ondansetron HCl (Zofran Inj) 4 mg Q6H PRN IV 12/21/16 20:00 01/20/17 19:59 12/22/16 07:41 4 MG Nitroglycerin (Nitrostat Tab) 0.4 mg UD PRN SL 12/21/16 20:00 01/20/17 19:59 Cyclobenzaprine HCl (Flexeril Tab) 10 mg TID PO 12/21/16 21:00 01/20/17 20:59 12/22/16 07:44 10 MG Doxepin HCl (Sinequan Cap) 150 mg HS PO 12/21/16 21:00 01/20/17 20:59 12/21/16 22:11 150 MG Metoprolol Succinate (Toprol Xl Tab) 25 mg DAILY PO 12/22/16 09:00 01/21/17 08:59 12/22/16 07:43 25 MG Multivitamins (Multivitamin Tab) 1 tab DAILY PO 12/22/16 09:00 01/21/17 08:59 12/22/16 07:43 1 TAB Levetiracetam (Keppra Tab) 1,000 mg BID PO 12/21/16 22:00 01/20/17 21:59 12/22/16 09:51 1,000 MG Levothyroxine Sodium (Synthroid Tab) 150 mcg DAILYBB PO 12/22/16 06:00 01/21/17 05:59 Vancomycin HCl 1250 mg/Sodium Chloride 275 ml @ 125 mls/hr Q10H IV 12/22/16 02:00 01/01/17 01:59 12/22/16 02:42 125 MLS/HR Vancomycin HCl (Consult) 1 ea UD PRN N/A 12/21/16 20:45 01/20/17 20:44 Piperacillin Sod/ Tazobactam Sod 3.375 gm/Dextrose 115 ml @ 28.75 mls/ hr Q8H IV 12/21/16 22:00 12/31/16 21:59 12/22/16 05:31 28.75 MLS/HR Morphine Sulfate (MoRPHine SULFATE INJ) 4 mg Q4 PRN IV 12/21/16 20:45 01/04/17 20:44 12/22/16 07:42 4 MG Ketorolac Tromethamine (Toradol Inj) 30 mg Q6H PRN IV 12/21/16 20:45 12/26/16 20:44 12/21/16 23:48 30 MG Piperacillin Sod/ Tazobactam Sod (Consult) 1 ea UD PRN N/A 12/21/16 20:45 01/20/17 20:44 Heparin Sodium (Porcine) (Heparin Sq 5000 Unit/0.5ml) 5,000 unit Q12 SQ 12/22/16 09:00 01/21/17 08:59 12/22/16 09:52 5,000 UNIT Review of Systems Constitutional: + fever, + chills, + sweats Eyes: No problem reported ENT: No problem reported Respiratory: + shortness of breath Cardiovascular: + chest pain Abdomen: No problem reported Musculoskeletal: + swelling Genitourinary - Female: No problem reported Neurologic: No problem reported Endocrine: No problem reported Hematologic / Lymphatic: No problem reported Integumentary: + new/changing skin lesions Allergic / Immunologic: No problem reported Physical Exam Date Time Temp Pulse Resp B/P (MAP) Pulse Ox O2 Delivery O2 Flow Rate FiO2 12/22/16 08:00 Room Air 12/22/16 07:42 36.7 112 18 137/82 (100) 99 Room Air 12/22/16 03:15 36.8 103 18 130/84 (99) 96 Room Air 12/22/16 03:15 Room Air 12/22/16 00:00 Room Air 12/21/16 23:20 36.7 106 20 143/85 (104) 97 Room Air 12/21/16 21:25 36.9 104 20 162/94 96 Room Air 12/21/16 20:57 36.5 110 16 149/118 99 12/21/16 20:00 149/118 12/21/16 18:23 110 16 99 12/21/16 18:23 110 16 99 12/21/16 18:22 105 18 153/102 100 Room Air 12/21/16 18:21 153/102 12/21/16 18:21 153/102 12/21/16 18:18 112 14 99 12/21/16 18:13 108 17 98 12/21/16 18:08 113 17 98 12/21/16 18:03 108 14 100 12/21/16 17:58 109 12 99 12/21/16 17:53 106 13 100 12/21/16 17:53 106 13 100 12/21/16 17:48 108 14 100 12/21/16 17:43 112 17 100 12/21/16 17:38 116 22 142/90 98 12/21/16 17:38 142/90 12/21/16 17:37 113 18 142/90 99 Room Air 12/21/16 17:18 123 19 100 12/21/16 17:16 99 Nasal Cannula 2.0 12/21/16 17:13 129 18 159/97 99 Nasal Cannula 2.0 12/21/16 17:13 127 20 99 12/21/16 17:11 159/97 12/21/16 17:11 159/97 12/21/16 17:08 125 20 12/21/16 17:05 137 12/21/16 16:30 36.5 150 20 134/81 98 Room Air General Appearance: WD/WN, no apparent distress Head: normocephalic, atraumatic Eyes: normal inspection, EOMI, sclerae normal ENT: normal ENT inspection, hearing grossly normal, pharynx normal Neck: supple, no adenopathy, thyroid normal, trachea midline Respiratory/Chest: chest non-tender, lungs clear, normal breath sounds, no respiratory distress Cardiovascular: regular rate, rhythm, no gallop, no murmur Abdomen/GI: normal bowel sounds, non tender, soft, no organomegaly Back: normal inspection, no CVA tenderness Extremities/Musculoskelatal: no calf tenderness, normal capillary refill Neurologic/Psych: alert, normal mood/affect, oriented x 3 Skin: normal color, no rash, + pertinent finding (Area of cellulitis and early abscess formation below right knee, appears improved from admission) Lymphatic: no adenopathy Laboratory Results Date/Time Source Procedure Growth Status 12/21/16 17:11 Blood Blood Culture Pending Received 12/21/16 17:00 Blood Blood Culture Pending Received 12/21/16 18:35 Urine , Clean Catch Urine Culture Pending Received 12/21/16 16:48 Abscess Right Lower Extremity Gram Stain - Final Resulted 12/21/16 16:48 Wound Culture - Preliminary Staphylococcus Aureus Resulted Last 24 Hours Test 12/21/16 17:00 12/21/16 17:04 12/21/16 17:08 12/21/16 18:35 White Blood Count 7.09 K/uL Red Blood Count 4.76 M/uL Hemoglobin 14.8 g/dL Hematocrit 42.0 % Mean Corpuscular Volume 88.2 fL Mean Corpuscular Hemoglobin 31.1 pg Mean Corpuscular Hemoglobin Concent 35.2 g/dl Platelet Count 180 K/uL Mean Platelet Volume 9.3 fL Neutrophils (%) (Auto) 78.9 % Lymphocytes (%) (Auto) 11.4 % Monocytes (%) (Auto) 9.2 % Eosinophils (%) (Auto) 0.3 % Basophils (%) (Auto) 0.1 % Neutrophils # (Auto) 5.59 K/uL Lymphocytes # (Auto) 0.81 K/uL Monocytes # (Auto) 0.65 K/uL Eosinophils # (Auto) 0.02 K/uL Basophils # (Auto) 0.01 K/uL RDW Standard Deviation 42.0 fL RDW Coefficient of Variation 13.0 % Immature Granulocyte % (Auto) 0.1 % Immature Granulocyte # (Auto) 0.01 K/uL Prothrombin Time 11.2 SECONDS Prothromb Time International Ratio 1.0 Activated Partial Thromboplast Time 28.5 SECONDS Partial Thromboplastin Ratio 1.1 Sodium Level 137 mmol/L Potassium Level 3.5 mmol/L Chloride Level 106 mmol/L Carbon Dioxide Level 21 mmol/L Anion Gap 10.0 mmol/L 15.0 mmol/L Blood Urea Nitrogen 9 mg/dl Creatinine 0.88 mg/dl Est Creatinine Clear Calc Drug Dose 102.2 ml/min Estimated GFR () 94.6 Estimated GFR (Non- 81.6 BUN/Creatinine Ratio 10.6 Random Glucose 102 mg/dl Calcium Level 9.1 mg/dl Magnesium Level 2.2 mg/dl Total Bilirubin 0.4 mg/dl Aspartate Amino Transf (AST/SGOT) 95 U/L Alanine Aminotransferase (ALT/SGPT) 159 U/L Alkaline Phosphatase 110 U/L Troponin I < 0.015 ng/ml Total Protein 8.4 gm/dl Albumin 3.8 gm/dl Globulin 4.6 gm/dl Albumin/Globulin Ratio 0.8 Thyroid Stimulating Hormone (TSH) 5.310 uIu/ml Free Thyroxine 1.24 ng/dl Lyme Disease IgG Antibody NEG Lyme Disease IgM Antibody NEG Bedside Lactic Acid Venous 1.29 mmol/L Bedside Hemoglobin 13.6 g/dl Bedside Hematocrit 40 % Bedside Sodium 139 mEq/L Bedside Potassium 3.7 mEq/L Bedside Chloride 106 mEq/L Bedside Total CO2 23 mEq/l Bedside Blood Urea Nitrogen 9 mg/dl Bedside Creatinine 0.8 mg/dl Bedside Glucose (other) 107 mg/dl Bedside Ionized Calcium (Samanta) 1.12 mmol/l Urine Color YELLOW Urine Appearance CLEAR Urine pH 5.5 Urine Specific [place] > 1.045 Urine Protein NEG Urine Glucose (UA) NEG Urine Ketones NEG Urine Occult Blood NEG Urine Nitrite NEG Urine Bilirubin NEG Urine Urobilinogen NEG Urine Leukocyte Esterase MODERATE Urine WBC (Auto) 10-30 /hpf Urine RBC (Auto) 0-4 /hpf Urine Hyaline Casts (Auto) 1-5 /lpf Urine Epithelial Cells (Auto) >30 /lpf Urine Bacteria (Auto) NEG Test 12/21/16 23:31 12/22/16 04:43 Troponin I < 0.015 ng/ml < 0.015 ng/ml White Blood Count 6.38 K/uL Red Blood Count 3.81 M/uL Hemoglobin 12.1 g/dL Hematocrit 34.1 % Mean Corpuscular Volume 89.5 fL Mean Corpuscular Hemoglobin 31.8 pg Mean Corpuscular Hemoglobin Concent 35.5 g/dl Platelet Count 133 K/uL Mean Platelet Volume 8.9 fL Neutrophils (%) (Auto) 65.7 % Lymphocytes (%) (Auto) 19.3 % Monocytes (%) (Auto) 13.3 % Eosinophils (%) (Auto) 1.1 % Basophils (%) (Auto) 0.3 % Neutrophils # (Auto) 4.19 K/uL Lymphocytes # (Auto) 1.23 K/uL Monocytes # (Auto) 0.85 K/uL Eosinophils # (Auto) 0.07 K/uL Basophils # (Auto) 0.02 K/uL RDW Standard Deviation 43.7 fL RDW Coefficient of Variation 13.2 % Immature Granulocyte % (Auto) 0.3 % Immature Granulocyte # (Auto) 0.02 K/uL Creatinine 0.73 mg/dl Est Creatinine Clear Calc Drug Dose 123.8 ml/min Estimated GFR () 118.6 Estimated GFR (Non- 102.3 Patient Name: VERONICA WALLACE Unit Number: [id number] Dictated: 12/21/161858 Transcribed: 12/21/161858 ARG Printed Date/Time: [~ rep prt dt]/[~ rep prt tm] [~ rep ct labl] - [~ rep ct ivnm] [facility] [place] [address] Dictated: 12/21/161858 Transcribed: 12/21/161858 ARG Printed Date/Time: [~ rep prt dt]/[~ rep prt tm] [~ rep ct labl] - [~ rep ct ivnm] CT DOSE: 260.71 mGy.cm CLINICAL HISTORY: Leg swelling. Spider bite. Possible necrotizing fasciitis. TECHNIQUE: Helical images were acquired in the transverse plane. No intravenous contrast was administered. Sagittal and coronal reformatted images were acquired. A dose lowering technique was utilized adhering to the principles of ALARA. COMPARISON STUDY: None. FINDINGS: No fractures are visualized. There are no destructive lesions to indicate acute osteomyelitis. There is skin thickening and infiltration of the subcutaneous fat involving the anterior lower leg. This is most pronounced anteromedially 7 cm inferior to the tibial plafond where there is a 1.5 cm ill-defined soft tissue density contiguous with overlying cutaneous thickening. Given the limitations of a noncontrast study, there are no fluid collections to indicate a drainable abscess. No air is visualized within the soft tissues to indicate a necrotizing fasciitis. IMPRESSION: 1. No evidence of fracture 2. No evidence of osteomyelitis 3. There is no air within the soft tissues to indicate a necrotizing fasciitis 4. Skin thickening and infiltration the subcutaneous fat involving the anterior lower leg. This is most pronounced 7 cm inferior to the tibial plafond. Given the clinical history, the findings are likely infectious/inflammatory Electronically signed by: Juan M Matthew M.D. 12/21/2016 7:05 PM Dictated Date/Time: 12/21/2016 6:59 PM The status of this report is Signed. Draft = Not yet reviewed or approved by Radiologist. Signed = Reviewed and approved by Radiologist. <AttendingPhy></AttendingPhy> <FamilyPhy>Mely Vázquez, C.RZhengN.P.</FamilyPhy> <PrimaryPhy>Mely Vázquez C.R.N.P.</PrimaryPhy> <UnitNumber>[id number]</ UnitNumber> <VisitNumber>[id number]</VisitNumber> <PatientName>VERONICA WALLACE</ PatientName> <DateOfBirth>1975</DateOfBirth> <Location>[facility]</Location> < ServiceDate>12/21/16</ServiceDate> <MNE>ESINDI</MNE> <OrderingPhy>Alex Valencia M.D.</OrderingPhy> <OrderingPhyMNE>f rep ord dr mcgrath</OrderingPhyMNE> < DictatingPhyMNE>f rep dict dr mcgrath</DictatingPhyMNE> <CCListMNE>f rep ct mne</ CCListMNE> <AdmittingPhyMNE>f pt admit dr mcgrath</AdmittingPhyMNE> <AttendingPhyMNE >f pt attend dr mcgrath</AttendingPhyMNE> <ConsultingPhyMNE>f pt consult dr mcgrath</ConsultingPhyMNE> <FamilyPhyMNE>f pt fam dr mcgrath</FamilyPhyMNE> <OtherPhyMNE>f pt other dr mcgrath</OtherPhyMNE> < PrimaryPhyMNE>f pt prim care dr mcgrath</PrimaryPhyMNE> <ReferringPhyMNE>f pt referring dr mcgrath</ReferringPhyMNE> Assessment & Plan 41-year-old female with right lower extremity developing abscess with Staph aureus, suspect this will be MRSA given appearance. I am worried about the possibility of bacteremic seeding with septic pulmonary emboli as well as potential for right-sided endocarditis. Pending sensitivities and final culture results, patient to continue on present antibiotics. Will likely need to be for further evaluation. Will follow.
--- NOTE | 2016-12-22 11:05 | DIAGNOSTIC IMAGING REPORT ---
ULTRASOUND VENOUS DOPPLER LWR EXT BILA CLINICAL HISTORY: Leg swelling. Cellulitis. COMPARISON STUDY: No previous studies for comparison. FINDINGS: Real-time and color flow Doppler imaging were performed. Flow was seen within the femoral, popliteal and calf veins with no intraluminal thrombus demonstrated. The saphenous vein is patent. IMPRESSION: No evidence of lower extremity DVT. Electronically signed by: Juan M Matthew M.D. 12/22/2016 11:03 AM Dictated Date/Time: 12/22/2016 11:01 AM
[2016-12-22 11:18] VITALS: BP 137/84; PULSE 102; TEMP 37.2; O2SAT 94
[2016-12-22] MEDS ORDERED: VANCOMYCIN TROUGH ONE ×2 (11:30→21:30)
--- NOTE | 2016-12-22 12:29 | Progress Note ---
Subjective Date of Service: Dec 22, 2016. Subjective Pt evaluation today including: conversation w/ patient, conversation w/ family , physical exam, chart review, lab review, review of studies, conversation w/ curriculum consultant, review of inpatient medication list Voiding: no voiding problems Right lower ext. cellulitis local red and hot seems that it'll be better, has some tachycardia, heart rate at 120, when up and walk, no fever and chill, pain fairly controlled Problem List Medical Problems: (1) Cellulitis of right lower extremity Status: Acute (2) Migraines Status: Chronic (3) Right-sided chest pain Status: Acute (4) Septic embolism Status: Acute Review of Systems Constitutional: + weakness, + fatigue, No fever, No chills, No sweats, No weight loss, No problem reported Eyes: No worsening of vision, No eye pain, No redness, No discharge, No diplopia ENT: No hearing loss, No unusual epistaxis, No nasal symptoms, No sore throat, No tinnitus, No dental problems, No trouble swallowing Respiratory: + cough (mild), No sputum, No wheezing, No shortness of breath, No dyspnea on exertion, No dyspnea at rest, No hemoptysis Cardiac: + chest pain (in right side), No orthopnea, No PND, No edema, No claudication, No palpitations Abdomen: No pain, No nausea, No vomiting, No diarrhea, No constipation Musculoskeletal: No joint pain, No muscle pain, No swelling, No calf pain Female : No dysuria, No urinary frequency, No hematuria, No incontinence, No abnormal vaginal bleeding, No vaginal discharge Neurologic: No memory loss, No paralysis, No weakness, No numbness/tingling, No vertigo, No balance problems Psychiatric: No depression symptoms, No anhedonism, No anxiety, No insomnia, No substance abuse Heme: No abnormal bleeding/bruising, No clotting problems, No swollen lymph nodes, No night sweats Endo: No fatigue, No excessive thirst, No excessive urination Skin: + rash (in right lower extremity, the erythema border line is better, the general reddish and hot is better per patient), No itch, No new/changing skin lesions, No color change, No bleeding Objective Vital Signs Date Time Temp Pulse Resp B/P (MAP) Pulse Ox O2 Delivery O2 Flow Rate FiO2 12/22/16 11:18 37.2 102 20 137/84 (101) 94 Room Air 12/22/16 10:27 Room Air 12/22/16 08:00 Room Air 12/22/16 07:42 36.7 112 18 137/82 (100) 99 Room Air 12/22/16 03:15 36.8 103 18 130/84 (99) 96 Room Air 12/22/16 03:15 Room Air 12/22/16 00:00 Room Air 12/21/16 23:20 36.7 106 20 143/85 (104) 97 Room Air 12/21/16 21:25 36.9 104 20 162/94 96 Room Air 12/21/16 20:57 36.5 110 16 149/118 99 12/21/16 20:00 149/118 12/21/16 18:23 110 16 99 12/21/16 18:23 110 16 99 12/21/16 18:22 105 18 153/102 100 Room Air 12/21/16 18:21 153/102 12/21/16 18:21 153/102 12/21/16 18:18 112 14 99 12/21/16 18:13 108 17 98 12/21/16 18:08 113 17 98 12/21/16 18:03 108 14 100 12/21/16 17:58 109 12 99 12/21/16 17:53 106 13 100 12/21/16 17:53 106 13 100 12/21/16 17:48 108 14 100 12/21/16 17:43 112 17 100 12/21/16 17:38 116 22 142/90 98 12/21/16 17:38 142/90 12/21/16 17:37 113 18 142/90 99 Room Air 12/21/16 17:18 123 19 100 12/21/16 17:16 99 Nasal Cannula 2.0 12/21/16 17:13 129 18 159/97 99 Nasal Cannula 2.0 12/21/16 17:13 127 20 99 12/21/16 17:11 159/97 12/21/16 17:11 159/97 12/21/16 17:08 125 20 12/21/16 17:05 137 12/21/16 16:30 36.5 150 20 134/81 98 Room Air Physical Exam General Appearance: WD/WN, no apparent distress, + thin Eyes: normal inspection, PERRL, EOMI, sclerae normal ENT: normal ENT inspection, hearing grossly normal, pharynx normal Neck: supple, no adenopathy, thyroid normal, no JVD, no carotid bruits, trachea midline Respiratory/Chest: chest non-tender, normal breath sounds, no respiratory distress, no accessory muscle use, + decreased breath sounds Cardiovascular: regular rate, rhythm, no edema, no gallop, no JVD, no murmur, + tachycardia Abdomen: normal bowel sounds, non tender, soft, no organomegaly, no pulsatile mass Extremities: normal range of motion, non-tender, normal inspection, no pedal edema, no calf tenderness, normal capillary refill, pelvis stable Neurologic/Psychiatric: microstrategy bi developer II-XII nml as tested, no motor/sensory deficits, alert, normal mood/affect, oriented x 3 Skin: + pertinent finding (right lower extremity local wound is drainage and swelling, under general redish and hot is better, the size is better to) Lymphatic: no adenopathy Laboratory Results Last 24 Hours Test 12/21/16 17:00 12/21/16 17:04 12/21/16 17:08 12/21/16 18:35 White Blood Count 7.09 K/uL Red Blood Count 4.76 M/uL Hemoglobin 14.8 g/dL Hematocrit 42.0 % Mean Corpuscular Volume 88.2 fL Mean Corpuscular Hemoglobin 31.1 pg Mean Corpuscular Hemoglobin Concent 35.2 g/dl Platelet Count 180 K/uL Mean Platelet Volume 9.3 fL Neutrophils (%) (Auto) 78.9 % Lymphocytes (%) (Auto) 11.4 % Monocytes (%) (Auto) 9.2 % Eosinophils (%) (Auto) 0.3 % Basophils (%) (Auto) 0.1 % Neutrophils # (Auto) 5.59 K/uL Lymphocytes # (Auto) 0.81 K/uL Monocytes # (Auto) 0.65 K/uL Eosinophils # (Auto) 0.02 K/uL Basophils # (Auto) 0.01 K/uL RDW Standard Deviation 42.0 fL RDW Coefficient of Variation 13.0 % Immature Granulocyte % (Auto) 0.1 % Immature Granulocyte # (Auto) 0.01 K/uL Prothrombin Time 11.2 SECONDS Prothromb Time International Ratio 1.0 Activated Partial Thromboplast Time 28.5 SECONDS Partial Thromboplastin Ratio 1.1 Sodium Level 137 mmol/L Potassium Level 3.5 mmol/L Chloride Level 106 mmol/L Carbon Dioxide Level 21 mmol/L Anion Gap 10.0 mmol/L 15.0 mmol/L Blood Urea Nitrogen 9 mg/dl Creatinine 0.88 mg/dl Est Creatinine Clear Calc Drug Dose 102.2 ml/min Estimated GFR () 94.6 Estimated GFR (Non- 81.6 BUN/Creatinine Ratio 10.6 Random Glucose 102 mg/dl Calcium Level 9.1 mg/dl Magnesium Level 2.2 mg/dl Total Bilirubin 0.4 mg/dl Aspartate Amino Transf (AST/SGOT) 95 U/L Alanine Aminotransferase (ALT/SGPT) 159 U/L Alkaline Phosphatase 110 U/L Troponin I < 0.015 ng/ml Total Protein 8.4 gm/dl Albumin 3.8 gm/dl Globulin 4.6 gm/dl Albumin/Globulin Ratio 0.8 Thyroid Stimulating Hormone (TSH) 5.310 uIu/ml Free Thyroxine 1.24 ng/dl Lyme Disease IgG Antibody NEG Lyme Disease IgM Antibody NEG Bedside Lactic Acid Venous 1.29 mmol/L Bedside Hemoglobin 13.6 g/dl Bedside Hematocrit 40 % Bedside Sodium 139 mEq/L Bedside Potassium 3.7 mEq/L Bedside Chloride 106 mEq/L Bedside Total CO2 23 mEq/l Bedside Blood Urea Nitrogen 9 mg/dl Bedside Creatinine 0.8 mg/dl Bedside Glucose (other) 107 mg/dl Bedside Ionized Calcium (Samanta) 1.12 mmol/l Urine Color YELLOW Urine Appearance CLEAR Urine pH 5.5 Urine Specific [place] > 1.045 Urine Protein NEG Urine Glucose (UA) NEG Urine Ketones NEG Urine Occult Blood NEG Urine Nitrite NEG Urine Bilirubin NEG Urine Urobilinogen NEG Urine Leukocyte Esterase MODERATE Urine WBC (Auto) 10-30 /hpf Urine RBC (Auto) 0-4 /hpf Urine Hyaline Casts (Auto) 1-5 /lpf Urine Epithelial Cells (Auto) >30 /lpf Urine Bacteria (Auto) NEG Test 12/21/16 23:31 12/22/16 04:43 12/22/16 11:18 Troponin I < 0.015 ng/ml < 0.015 ng/ml White Blood Count 6.38 K/uL Red Blood Count 3.81 M/uL Hemoglobin 12.1 g/dL Hematocrit 34.1 % Mean Corpuscular Volume 89.5 fL Mean Corpuscular Hemoglobin 31.8 pg Mean Corpuscular Hemoglobin Concent 35.5 g/dl Platelet Count 133 K/uL Mean Platelet Volume 8.9 fL Neutrophils (%) (Auto) 65.7 % Lymphocytes (%) (Auto) 19.3 % Monocytes (%) (Auto) 13.3 % Eosinophils (%) (Auto) 1.1 % Basophils (%) (Auto) 0.3 % Neutrophils # (Auto) 4.19 K/uL Lymphocytes # (Auto) 1.23 K/uL Monocytes # (Auto) 0.85 K/uL Eosinophils # (Auto) 0.07 K/uL Basophils # (Auto) 0.02 K/uL RDW Standard Deviation 43.7 fL RDW Coefficient of Variation 13.2 % Immature Granulocyte % (Auto) 0.3 % Immature Granulocyte # (Auto) 0.02 K/uL Creatinine 0.73 mg/dl Est Creatinine Clear Calc Drug Dose 123.8 ml/min Estimated GFR () 118.6 Estimated GFR (Non- 102.3 Vancomycin Level Trough 8.7 mcg/ml Assessment and Plan 41-year-old admitted on 12/21/2016 with Right lower ext. cellulitis 2/2 Insect (spider?) bite w/ pulmonary septic emboli Right lower ext. cellulitis 2/2 Insect (spider?) bite, possible local necrotizing fasciitis per CT studies, currently no any signs of neurovascular compromise Suspicious pulmonary septic emboli possible from cellulitis, Continue telemetry Continue Vanc, Zosyn- to cover MRSA and Anaerobes Follow-up Blood cultures and wound cultures pending Lyme's titres was negative Consult ID appreciated Gen surg planinh debridement/i&D today Follow up Echo, If blood culture positive wall need for TANMAY. Sputum culture sent - NPO , IV fluids h/o of migraines Keppra H/o of PVC's on metoprolol h/o thyroidectomy levothyrozine TSH at 5 Recommend rechecking in 4-6 weeks after acute illness has resolved DVT proph Heparin - hold if surgery planned Code: Full Continued [facility] stay due to: multiple IV medications needed Discharge planning: uncertain
--- NOTE | 2016-12-22 12:39 | Pharmacy Progress Note ---
Pharmacy Abx Dose Short Note Date of Service Dec 22, 2016. Assessment & Plan Assessment 41 year old female receiving Vancomycin and Zosyn for treatment of skin and soft tissue infection with septic emboli and possible endocarditis. Day # 2 of antimicrobial therapy. Item Value Date Time Vancomycin Level Trough 8.7 mcg/ml 12/22/16 1118 Ordered early trough level as patient has septic emboli and possible endocarditis. Level does not reflect true trough at steady-state however there is concern dosing may not be adequate. Based on above level, changed dosing frequency to 8 hours. Goal trough in this patient 15-20 mcg/mL Renal function stable based on Scr. Abscess culture grew Staph aureus . Sensitivities pending. Plan Vancomycin * Vancomycin 1250mg IV q 8 hours * Trough ordered for 12/23 @ 1130 Zosyn * Continue 3.375gm IV q 8 hours Pharmacy will continue to follow and will adjust dose/frequency as necessary. Thank you.
[2016-12-22] MEDS ORDERED: FENTANYL CITRATE INJ 50 MCG/1 ML 2 ML VIAL ONE (13:53)
[2016-12-22] MEDS ORDERED: PROPOFOL IV EMULSION 10 MG/ML 20 ML VIAL IV ONE ×2 (13:53→15:30)
[2016-12-22] MEDS ORDERED: LIDOCAINE HCL 2% 2 ML VIAL (20MG/ML) ONE (13:53)
[2016-12-22] MEDS ORDERED: MIDAZOLAM HCL 1 MG/ML 2ML VIAL ONE (13:53)
[2016-12-22] MEDS ORDERED: ONDANSETRON INJ 2 MG/ML 2 ML VIAL ONE (14:15)
[2016-12-22] MEDS: BUPIVACAINE 0.5 % 5 MG/1 ML MPF 30ML VIAL ONE ×2 (14:18→16:06)
[2016-12-22] MEDS: EpINEphrine INJ 1MG/ML AMP 1 MG/ML AMP ONE ×2 (14:19→16:08)
[2016-12-22] MEDS ORDERED: SCOPOLAMINE 1.5 MG TDSY TD ONE ×2 (15:09→15:15)
[2016-12-22] MEDS ORDERED: ONDANSETRON INJ 2 MG/ML 2 ML VIAL IV PRN (15:15)
[2016-12-22] MEDS ORDERED: EpHEDrine SULFATE INJ 50 MG/ML AMP IV PRN (15:15)
[2016-12-22] MEDS ORDERED: LABETALOL HCL IV 5 MG/ML 20ML IV PRN (15:15)
[2016-12-22] MEDS ORDERED: PROMETHAZINE HCL INJ 12.5 MG in SODIUM CHLORIDE 0.9% 50ML 50 ML IV PRN (15:15)
[2016-12-22] MEDS ORDERED: NALOXONE HCL 0.4 MG/1 ML VIAL/CARP IV PRN (15:15)
[2016-12-22] MEDS ORDERED: HYDROmorphone INJ 1 MG/ML SYR IV PRN (15:15)
[2016-12-22] MEDS ORDERED: ATROPINE SULFATE 0.1 MG/ML 5ML SYR IV PRN (15:15)
[2016-12-22] MEDS ORDERED: FLUMAZENIL 0.1 MG/1 ML 10 ML VIAL IV PRN (15:15)
--- NOTE | 2016-12-22 15:54 | [facility] Post Operative Brief Note ---
Immediate Operative Summary Operative Date Dec 22, 2016. Pre-Operative Diagnosis right lower extremity infection (anterior veliz) Post-Operative Diagnosis same Procedure(s) Performed debridement of right lower extremity infection Surgeon Hamida Arreaga M.D. Staffing Administrator Surgeon(s) JOHAN Metcalf Estimated Blood Loss 5 cc Findings no pus but necrotic tissue extending in 2 cm circular fashion about 4 cm deep to skin. No tracking of infection elsewhere. Specimens wound culture Drains none Anesthesia GET Complication(s) None Disposition Recovery Room / PACU
[2016-12-22] MEDS ORDERED: OXYCODONE/ACETAMINOPHEN 5-325 TAB PO PRN ×2 (16:00)
[2016-12-22] MEDS: CHECK SCOPOLAMINE PATCH PLACEMENT SCH ×2 (16:00→23:31)
--- NOTE | 2016-12-22 16:05 | OPERATIVE REPORT ---
DATE OF OPERATION: 12/22/2016 PREOPERATIVE DIAGNOSIS: Infected right lower extremity over anterior veliz. POSTOPERATIVE DIAGNOSIS: Same. OPERATIVE PROCEDURE: Debridement of right lower extremity infection. SURGEON: Dr. Hamida Arreaga. GARNETTER: Renetta Costello PA-C. ESTIMATED BLOOD LOSS: 5 mL. ANESTHESIA: General endotracheal anesthesia. COMPLICATIONS: None. SPECIMENS: Wound culture. OPERATIVE FINDINGS: A 2 cm circular area of necrosis extending about 4 cm deep to the skin. No tracking. INDICATIONS: Ms. Whitaker is a 41-year-old woman who presented both with an infected right lower extremity, likely following a spider bite as well as evidence of septic pulmonary emboli. Her right lower extremity was markedly swollen. There was a 2 cm area of necrosis. We discussed debridement of this and she consented. PROCEDURE: The patient was on antibiotics preoperatively. After the induction of general endotracheal anesthesia, her left lower extremity had an SCD placed. Her right lower extremity was prepped with Betadine and draped and the area was infiltrated with local anesthesia, a circular incision was used to excise the area of necrosis. Underlying this there was no pus, but there was necrotic tissue extending 4 cm deep. This was debrided. The wound was irrigated multiple times. This was then cauterized as there was a fair amount of oozing from the skin edges. The wound was then packed with moistened 2 x 2 and the leg rewrapped. A culture had been taken following unroofing of the area of debridement. She was taken to recovery in stable condition. I attest to the content of the Intraoperative Record and any orders documented therein. Any exception s are noted below.
[2016-12-22 16:30] VITALS: BP 134/85; PULSE 103; TEMP 36.9; O2SAT 96
--- NOTE | 2016-12-22 17:05 | Anesthesiology Progress Note ---
Anesthesia Post Op Note Date & Time Dec 22, 2016 at 17:04 Vital Signs Pain Intensity: 0 Vital Signs Past 12 Hours Date Time Temp Pulse Resp B/P (MAP) Pulse Ox O2 Delivery O2 Flow Rate FiO2 12/22/16 16:30 97 18 145/82 100 Nasal Cannula 3 12/22/16 16:25 37.2 99 20 149/85 99 Nasal Cannula 3 12/22/16 16:15 101 17 148/71 100 Nasal Cannula 3 12/22/16 16:05 107 20 152/83 100 Oxymask 10 12/22/16 15:55 118 20 147/83 95 Oxymask 10 12/22/16 15:48 36.8 124 20 133/81 96 Oxymask 10 12/22/16 12:00 Room Air 12/22/16 11:18 37.2 102 20 137/84 (101) 94 Room Air 12/22/16 10:27 Room Air 12/22/16 08:00 Room Air 12/22/16 07:42 36.7 112 18 137/82 (100) 99 Room Air Notes Mental Status: alert / awake / arousable, participated in evaluation Pt Amnestic to Procedure: Yes Nausea / Vomiting: adequately controlled Pain: adequately controlled Airway Patency, RR, SpO2: stable & adequate BP & HR: stable & adequate Hydration State: stable & adequate Anesthetic Complications: no major complications apparent
[2016-12-22 19:08] VITALS: BP 137/84; PULSE 94; TEMP 36.6; O2SAT 99
[2016-12-22] MEDS: KETOROLAC TROMETHAMINE 30 MG/ML VIAL IV PRN (19:32)
--- NOTE | 2016-12-22 19:40 | Pulmonary Consultation ---
History General Date of Service: Dec 22, 2016. Stated Complaint: Cellulitis Of R Lower Extremity, Septic Embolism HPI The patient is a 41 year old female who presents to [facility] with complaints of Cellulitis Of R Lower Extremity, Septic Embolism. The patient's primary care provider is Mely Vázquez C.R.N.P.. Ms. Whitaker is 41-year-old female with history of migraine headaches, otherwise in good health, developed a erythematous lesion below her right knee last week 12/14/2016. She was seen in urgent care center, prescribed Bactrim for presumed infected spider bite. She states not too soon after the area became painful, swollen and erythematous. This is associated with fevers or chills sweats and sharp pleuritic chest pain on the right side that was exacerbated with deep inspiration. She came to the ER for further evaluation. Vital signs in the ER upon arrival, temperature 36.5, pulse 150, respiratory rate 20, blood pressure 134/81 saturating 98% on room air. Laboratory data showed a white blood cell count of 7, hemoglobin of 14, platelet count of 180. Sodium 139, potassium 3.7, chloride 106, bicarbonate 23, creatinine 0.73. Troponin 2 are negative. UA showed moderate leukocyte esterase, urine white blood cell count was between 10-30, greater than 30 urine epithelial cells and negative bacteria. CT scan showed possible septic pulmonary emboli. Patient started empirically on vancomycin and Zosyn. Cultures from the wound growing Staph aureus, sensitivities pending. TTE was done showed normal EF with no valvular abnormalities. Lower extremity Doppler showed no DVT. She went operative debridement earlier today. Microbiology Abscess-leg right lower 12/22/2016-pending Urine cultures 12/21/2016-no growth Blood cultures from 12/21/2016-pending Abscess-right lower extremity 12/21/2016-staph aureus Historian: patient Onset: last week Severity: moderate Complaint Status: persistent Quality of Pain: aching Method of Injury: unknown Modifying Factors: immobilization Review of Systems Constitutional: reports: chills, malaise Eyes: reports: no symptoms ENT: reports: as stated in HPI Cardiovascular: reports: as stated in HPI Respiratory: reports: shortness of breath (pleuritic chest pain with deep inspiration) Gastrointestinal: reports: no symptoms Genitourinary - Female: reports: no symptoms (right lower extremity pain and swelling) Integumentary: reports: redness, lesions Neurologic: reports: no symptoms, as stated in HPI Psychiatric: reports: no symptoms Endocrine: no symptoms Hematologic / Lymphatic: no symptoms Allergic / Immunologic: no symptoms All Other Symptoms All Other Systems: Reviewed and Negative Past Medical History Past Medical History: Lowe's esophagus Chronic left knee pain Arthralgia Constipation CT liver cyst Dysesthesia Dysmenorrhea GERD Hypertension Hypothyroidism Migraine without status migrainous Muscle spasm Neck pain Numbness and tingling PVCs Chest incontinence Sinusitis Past Surgical History: Abdominoplasty Dilatation and curettage Umbilical hernia repair Family History FH: hypertension Mother: Family history of brain cancer Family history of hypertension Father: Family history of antithrombin III deficiency Family history of factor V Leiden mutation, hyper-coagulation Sr.: family history of pulmonary embolism Maternal grandfather: family history of coronary artery disease, diabetes Social History Denies tobacco use, alcohol use or illicit drug use. Currently . Hx Tobacco Use In Past Year?: No Smoking Status: Never Smoker Marital status: Housing status: lives with family Occupational Status: employed Immunizations History of Influenza Vaccine: Unknown History of Tetanus Vaccine?: Unknown History of Pneumococcal: Unknown History of Hepatitis B Vaccine: Unknown History of MDRO History of MDRO: No Allergies Coded Allergies: NO KNOWN DRUG ALLERGIES (Verified Allergy, Unknown, ., 12/21/16) Current Medications Reported Home Medications Medications Dose Route/Sig Max Daily Dose Days Date Category Bactrim Ds 800MG/160MG (Trimethoprim/Sulfamethoxazole) Tab 1 Tab PO BID 10 12/21/16 Reported Doxepin (Doxepin Hcl) 150 Mg Cap 1 Cap PO HS 12/21/16 Reported Levetiracetam 1,000 Mg Tab 1 Tab PO BID 12/21/16 Reported Metoprolol Succinate ER (Metoprolol Succinate) 25 Mg Tabcr 1 Tab PO DAILY 12/21/16 Reported Cyclobenzaprine HCl 10 Mg Tab 1 Tab PO TID 12/21/16 Reported Tirosint (Levothyroxine Sodium) 150 Mcg Cap 1 Cap PO DAILY 08/28/15 Reported Multivitamin (Multivitamins) Tab 1 Tab PO DAILY 06/15/12 Reported Physical Physical Exam Vital Signs: Date Time Temp Pulse Resp B/P (MAP) Pulse Ox O2 Delivery O2 Flow Rate FiO2 12/22/16 16:30 36.9 103 18 134/85 (101) 96 Room Air 12/22/16 16:30 97 18 145/82 100 Nasal Cannula 3 12/22/16 16:30 Room Air 12/22/16 16:25 37.2 99 20 149/85 99 Nasal Cannula 3 12/22/16 16:15 101 17 148/71 100 Nasal Cannula 3 12/22/16 16:05 107 20 152/83 100 Oxymask 10 12/22/16 15:55 118 20 147/83 95 Oxymask 10 12/22/16 15:48 36.8 124 20 133/81 96 Oxymask 10 12/22/16 12:00 Room Air 12/22/16 11:18 37.2 102 20 137/84 (101) 94 Room Air 12/22/16 10:27 Room Air 12/22/16 08:00 Room Air 12/22/16 07:42 36.7 112 18 137/82 (100) 99 Room Air 12/22/16 03:15 36.8 103 18 130/84 (99) 96 Room Air 12/22/16 03:15 Room Air 12/22/16 00:00 Room Air 12/21/16 23:20 36.7 106 20 143/85 (104) 97 Room Air 12/21/16 21:25 36.9 104 20 162/94 96 Room Air 12/21/16 20:57 36.5 110 16 149/118 99 12/21/16 20:00 149/118 General Appearance: WELL-APPEARING, WD/WN, NO APPARENT DISTRESS, uncomfortable Head: NORMOCEPHALIC, ATRAUMATIC Eyes: PERRLA, NO DISCHARGE, EOMI, SCLERAE NORMAL, CONJUNCTIVAE NORMAL ENT: NORMAL NASAL EXAM, NORMAL MOUTH EXAM, NORMAL THROAT EXAM Neck: NORMAL RANGE OF MOTION, NO TENDERNESS, TRACHEA MIDLINE, NO STRIDOR, SUPPLE Respiratory: BREATH SOUNDS NORMAL, CLEAR TO AUSCULTATION, NO RESPIRATORY DISTRESS Cardiovasular: REGULAR RATE/RHYTHM, NORMAL S1S2, NO M/G/R, NO MURMUR Abdomen: NON TENDER, NORMAL BOWEL SOUNDS, NO REBOUND Back: NORMAL INSPECTION, NO MIDLINE TENDERNESS, NO CVA TENDERNESS Upper Extremities: NO EDEMA, NO DEFORMITY (no cyanosis no clubbing), NORMAL ROM , other (tattoo on right upper extremity and back) Lower Extremities: other (no edema left lower extremity, right lower extremity in dressing) Neuro: ALERT, ORIENTED x 3, NORMAL MOTOR EXAM, NORMAL SENSATION, NORMAL CEREBELLAR EXAM, NORMAL SPEECH, NORMAL MEMORY Psychiatric: NORMAL AFFECT, NO SUICIDAL IDEATION, CONTRACTS FOR SAFETY Diagnostics Labs Results Past 24 Hours Test 12/21/16 23:31 12/22/16 04:43 12/22/16 11:18 Range/Units Troponin I < 0.015 < 0.015 0-0.045 ng/ml White Blood Count 6.38 4.8-10.8 K/uL Red Blood Count 3.81 4.2-5.4 M/uL Hemoglobin 12.1 12.0-16.0 g/dL Hematocrit 34.1 37-47 % Mean Corpuscular Volume 89.5 80-100 fL Mean Corpuscular Hemoglobin 31.8 25-34 pg Mean Corpuscular Hemoglobin Concent 35.5 32-36 g/dl Platelet Count 133 130-400 K/uL Mean Platelet Volume 8.9 7.4-10.4 fL Neutrophils (%) (Auto) 65.7 % Lymphocytes (%) (Auto) 19.3 % Monocytes (%) (Auto) 13.3 % Eosinophils (%) (Auto) 1.1 % Basophils (%) (Auto) 0.3 % Neutrophils # (Auto) 4.19 1.4-6.5 K/uL Lymphocytes # (Auto) 1.23 1.2-3.4 K/uL Monocytes # (Auto) 0.85 0.11-0.59 K/uL Eosinophils # (Auto) 0.07 0-0.5 K/uL Basophils # (Auto) 0.02 0-0.2 K/uL RDW Standard Deviation 43.7 36.4-46.3 fL RDW Coefficient of Variation 13.2 11.5-14.5 % Immature Granulocyte % (Auto) 0.3 % Immature Granulocyte # (Auto) 0.02 0.00-0.02 K/uL Creatinine 0.73 0.60-1.20 mg/dl Est Creatinine Clear Calc Drug Dose 123.8 ml/min Estimated GFR () 118.6 Estimated GFR (Non- 102.3 Vancomycin Level Trough 8.7 SEE COMMENT mcg/ml Microbiology Results 12/22/16 Gram Stain, Received Pending 12/22/16 Bacterial Culture, Received Pending Diagnostic Radiology CHEST ONE VIEW PORTABLE CLINICAL HISTORY: Sepsis CHEST PAIN COMPARISON STUDY: No previous studies for comparison. FINDINGS: The heart is normal in size. There is no failure. There are mildly increased right basilar markings, atelectatic versus inflammatory.[ IMPRESSION: Increased right basilar markings, atelectatic versus inflammatory. CT ANGIOGRAM OF THE CHEST CLINICAL HISTORY: Atypical chest pain. COMPARISON STUDY: No priors. TECHNIQUE: Following the IV administration of 91 cc of Optiray 320, CT angiogram of the chest was performed from the upper abdomen to the thoracic inlet utilizing the pulmonary embolus protocol. Images are reviewed in the axial, sagittal, and coronal planes. 3-D MIPS images are created and assessed. IV contrast was administered without complication. A dose lowering technique was utilized adhering to the principles of ALARA. CT DOSE: 451.81 mGy.cm FINDINGS: Thyroid: Markedly atrophic. Thoracic aorta: The thoracic aorta is normal in caliber and demonstrates 4-vessel variant arch anatomy. No dissection is seen. Pulmonary vasculature: The pulmonary trunk is normal in caliber. There are no filling defects identified in main, lobar, or segmental pulmonary branches to suggest pulmonary embolus. Heart: The heart is normal in size and configuration, and without pericardial effusion. Lungs and pleural spaces: There are trace pleural effusions. There is a 1.7 cm nodule in the right middle lobe with minimal central cavitation. Additional subcentimeter nodule in the right middle lobe as seen on image #112. Additional foci of similar-appearing nodularity are seen in the left lower lobe on images #65, #109, and #149, the right upper lobe on image #168, and in the left upper lobe on image #192. Significant dependent atelectasis is observed. The trachea and central airways are clear. Mediastinum: There is no mediastinal lymphadenopathy. Denise: Clear. Axillae: There is no axillary lymphadenopathy. Upper abdomen: There is a small hiatal hernia. Partially visualized upper abdominal viscera is otherwise within normal limits. Skeletal structures: No lytic or blastic bony lesions are seen. IMPRESSION: 1. There is no evidence of pulmonary embolus in the main, lobar, or segmental pulmonary arteries. 2. There are foci of irregular nodularity scattered throughout both lungs as above. The largest is seen in the right middle lobe and measures 1.7 cm, and contains central cavitation. This likely represents an infectious/inflammatory pneumonitis. Differential considerations include septic emboli, or much less likely vasculitis or neoplasm. Clinical correlation will be essential. Follow-up CT scan in 2-3 months time is recommended to document resolution. 3. There are trace pleural effusions. 4. No mediastinal or hilar adenopathy is seen. CT RIGHT LOWER LEG NO CONTRAST CT DOSE: 260.71 mGy.cm CLINICAL HISTORY: Leg swelling. Spider bite. Possible necrotizing fasciitis. TECHNIQUE: Helical images were acquired in the transverse plane. No intravenous contrast was administered. Sagittal and coronal reformatted images were acquired. A dose lowering technique was utilized adhering to the principles of ALARA. COMPARISON STUDY: None. FINDINGS: No fractures are visualized. There are no destructive lesions to indicate acute osteomyelitis. There is skin thickening and infiltration of the subcutaneous fat involving the anterior lower leg. This is most pronounced anteromedially 7 cm inferior to the tibial plafond where there is a 1.5 cm ill-defined soft tissue density contiguous with overlying cutaneous thickening. Given the limitations of a noncontrast study, there are no fluid collections to indicate a drainable abscess. No air is visualized within the soft tissues to indicate a necrotizing fasciitis. IMPRESSION: 1. No evidence of fracture 2. No evidence of osteomyelitis 3. There is no air within the soft tissues to indicate a necrotizing fasciitis 4. Skin thickening and infiltration the subcutaneous fat involving the anterior lower leg. This is most pronounced 7 cm inferior to the tibial plafond. Given the clinical history, the findings are likely infectious/inflammatory ULTRASOUND VENOUS DOPPLER LWR EXT BILA CLINICAL HISTORY: Leg swelling. Cellulitis. COMPARISON STUDY: No previous studies for comparison. FINDINGS: Real-time and color flow Doppler imaging were performed. Flow was seen within the femoral, popliteal and calf veins with no intraluminal thrombus demonstrated. The saphenous vein is patent. IMPRESSION: No evidence of lower extremity DVT. TTE * BSA: 2.1 m2 * -- Conclusions -- * 1. Normal LV size and wall thickness. * 2. Low normal LV systolic function. LVEF 50-55%. No regional wall motion abnormalities. * 3. Normal RV size and function. * 4. No significant valvular pathology. Right sided valves not well visualized. * 5. No prior studies for comparison. Impression Assessment and Plan Sepsis Staph aureus abscess of right lower extremity Right-sided pleurisy Bilateral pneumonia Patient presented with right-sided pleuritic chest pain in the setting of right lower extremity abscess. CT chest does show bilateral opacifications with largest lesion showing central cavitation. This most likely represent infectious etiology, but could also represent inflammatory process as well. She does have small pleural effusion. She is currently on empiric antibiotics with Zosyn and vancomycin which I think is reasonable at this time. RECOMMENDATIONS Follow-up blood cultures. If positive patient should have TANMAY to rule out vegetations. Continue with Percocet and morphine as needed for pleuritic chest pain. Ideally she should have an NSAID to help decrease inflammation. Recommend incentive spirometry to avoid atelectasis. Sputum cultures. Supplemental oxygen when necessary if needed. DVT prophylaxis. Discussed with Dr. Moreau.
[2016-12-22] MEDS: DOXEPIN HCL 75 MG CAP PO SCH (20:24)
[2016-12-23] VITALS (12 sets, daily range): BP systolic 131–160; BP diastolic 74–89; PULSE 85–118; TEMP 36.8–37.3; O2SAT 94–100
[2016-12-23] MEDS: VANCOMYCIN INJ 1,250 MG in SODIUM CHLORIDE 0.9% 250ML 250 ML IV SCH ×2 (04:06→12:17)
[2016-12-23] MEDS: LEVOTHYROXINE 150 MCG TAB PO SCH (06:00)
[2016-12-23] MEDS: PIPERACILL/TAZOBAC IV 3.375 GM in DEXTROSE 5% 100ML 100 ML IV SCH ×2 (06:01→15:29)
[2016-12-23 06:36] LABS: BASO % 0.6 %; BASO ABS # 0.03 K/uL (0-0.2); COMPLETE YES; EOS % 3.7 %; HEMATOCRIT 32.9 % (37-47); IG% 0.2 %; LYMPH % 31.8 %; LYMPH ABS # 1.65 K/uL (1.2-3.4); MEAN CELL VOLUME 88.9 fL (80-100); MEAN CORPUSCULAR HEMOGLOBIN 30.8 pg (25-34); MEAN CORPUSCULAR HGB CONC 34.7 g/dl (32-36); MEAN PLATELET VOLUME 8.5 fL (7.4-10.4); MONO % 9.6 %; NEUT % 54.1 %; PLATELET COUNT 148 K/uL (130-400); WHITE BLOOD COUNT 5.19 K/uL (4.8-10.8)
[2016-12-23 07:07] LABS: BUN/CREATININE RATIO 11.9 (10-20); CALCIUM 8.2 mg/dl (8.5-10.1); CREATININE 0.68 mg/dl (0.60-1.20); MAGNESIUM 2.3 mg/dl (1.8-2.4); POTASSIUM 3.6 mmol/L (3.5-5.1)
[2016-12-23] MEDS: CHECK SCOPOLAMINE PATCH PLACEMENT SCH (08:00)
[2016-12-23] MEDS: CYCLOBENZAPRINE HCL 10 MG TAB PO SCH ×3 (08:29→21:00)
[2016-12-23] MEDS: MULTIVITAMIN TAB PO SCH (08:30)
[2016-12-23] MEDS: METOPROLOL SUCC 25MG EXT REL TAB PO SCH (08:30)
[2016-12-23] MEDS: LEVETIRACETAM 500 MG TAB PO SCH ×2 (08:30→21:01)
[2016-12-23] MEDS: HEPARIN SOD 5000 UNIT/0.5 ML CARP SQ SCH ×2 (08:33→21:00)
[2016-12-23] MEDS ORDERED: LEVALBUTEROL/IPRATROPIUM NEB INH SCH (09:00)
--- NOTE | 2016-12-23 09:23 | Surgery Progress Note ---
Surgery Progress Note Date of Service Dec 23, 2016. Subjective Post OP Day: 1 (s/p debridement of RLE wound) + feeling well slight discomfort of right lower leg but no increasing pain, redness, or swelling No fevers or chills Had some pleuritic chest pain last evening after sneezing, no difficulty breathing or shortness of breath Objective Vital Signs: Date Time Temp Pulse Resp B/P (MAP) Pulse Ox O2 Delivery O2 Flow Rate FiO2 12/23/16 08:00 98 Room Air 12/23/16 07:29 36.8 98 18 131/74 (93) 98 12/23/16 05:08 37.0 109 16 137/86 (103) 94 Room Air 12/23/16 04:00 Room Air 12/23/16 00:12 36.9 103 16 133/85 (101) 94 Room Air 12/23/16 00:00 Room Air 12/22/16 20:00 Room Air 12/22/16 19:08 36.6 94 16 137/84 (101) 99 Room Air 12/22/16 16:30 36.9 103 18 134/85 (101) 96 Room Air 12/22/16 16:30 97 18 145/82 100 Nasal Cannula 3 12/22/16 16:30 Room Air 12/22/16 16:25 37.2 99 20 149/85 99 Nasal Cannula 3 12/22/16 16:15 101 17 148/71 100 Nasal Cannula 3 12/22/16 16:05 107 20 152/83 100 Oxymask 10 12/22/16 15:55 118 20 147/83 95 Oxymask 10 12/22/16 15:48 36.8 124 20 133/81 96 Oxymask 10 12/22/16 12:00 Room Air 12/22/16 11:18 37.2 102 20 137/84 (101) 94 Room Air 12/22/16 10:27 Room Air General Appearance: WD/WN, no apparent distress Neck: trachea midline Respiratory/Chest: no respiratory distress, no accessory muscle use Extremities: + pertinent finding (RLE wound: healthy granulation tissue present , no eschar or fibrinous tissue, no fluctuance or indudration. Erythema improving. Mild edema of the calf.) Laboratory Results: Results Past 24 Hours Test 12/22/16 11:18 12/23/16 06:09 Range/Units Vancomycin Level Trough 8.7 SEE COMMENT mcg/ml White Blood Count 5.19 4.8-10.8 K/uL Red Blood Count 3.70 4.2-5.4 M/uL Hemoglobin 11.4 12.0-16.0 g/dL Hematocrit 32.9 37-47 % Mean Corpuscular Volume 88.9 80-100 fL Mean Corpuscular Hemoglobin 30.8 25-34 pg Mean Corpuscular Hemoglobin Concent 34.7 32-36 g/dl Platelet Count 148 130-400 K/uL Mean Platelet Volume 8.5 7.4-10.4 fL Neutrophils (%) (Auto) 54.1 % Lymphocytes (%) (Auto) 31.8 % Monocytes (%) (Auto) 9.6 % Eosinophils (%) (Auto) 3.7 % Basophils (%) (Auto) 0.6 % Neutrophils # (Auto) 2.81 1.4-6.5 K/uL Lymphocytes # (Auto) 1.65 1.2-3.4 K/uL Monocytes # (Auto) 0.50 0.11-0.59 K/uL Eosinophils # (Auto) 0.19 0-0.5 K/uL Basophils # (Auto) 0.03 0-0.2 K/uL RDW Standard Deviation 43.4 36.4-46.3 fL RDW Coefficient of Variation 13.3 11.5-14.5 % Immature Granulocyte % (Auto) 0.2 % Immature Granulocyte # (Auto) 0.01 0.00-0.02 K/uL Sodium Level 142 136-145 mmol/L Potassium Level 3.6 3.5-5.1 mmol/L Chloride Level 112 98-107 mmol/L Carbon Dioxide Level 23 21-32 mmol/L Anion Gap 7.0 3-11 mmol/L Blood Urea Nitrogen 8 7-18 mg/dl Creatinine 0.68 0.60-1.20 mg/dl Est Creatinine Clear Calc Drug Dose 132.1 ml/min Estimated GFR () 125.9 Estimated GFR (Non- 108.6 BUN/Creatinine Ratio 11.9 10-20 Random Glucose 76 70-99 mg/dl Calcium Level 8.2 8.5-10.1 mg/dl Magnesium Level 2.3 1.8-2.4 mg/dl Total Bilirubin 0.4 0.2-1 mg/dl Direct Bilirubin 0.1 0-0.2 mg/dl Aspartate Amino Transf (AST/SGOT) 23 15-37 U/L Alanine Aminotransferase (ALT/SGPT) 74 12-78 U/L Alkaline Phosphatase 80 45-117 U/L Total Protein 6.2 6.4-8.2 gm/dl Albumin 2.7 3.4-5.0 gm/dl Microbiology Results 12/22/16 Gram Stain - Final, Resulted 12/22/16 Bacterial Culture, Resulted Pending Assessment & Plan POD # 1 s/p debridement of RLE wound/eschar - vitals stable, afebrile - wound with healthy granulation tissue, no eschar present about 2.5-3 cm deep - wound care consult today for possible wound vac Plan: Continue IV antibiotics and conservative management Recommend elevated RLE with a few pillows to decrease edema May weightbear, walking encouraged May shower Dressing change BID with wet to dry dressing if no wound vac will be placed. Change dressing after showering await results of wound culture, blood cultures negative x 2 to date Continue current medical management Dr. Arreaga has seen and examined patient, agrees with above. Pt seen and examined. Would likely benefit from wound vac. Wound care nurse consult placed. Otherwise plan as above.
[2016-12-23] MEDS ORDERED: PROMETHAZINE HCL 25 MG TAB PO ONE (10:30)
[2016-12-23] MEDS ORDERED: NURSING VERBAL MED ORDER ONE ×3 (10:30→19:00)
[2016-12-23] MEDS ORDERED: KETOROLAC TROMETHAMINE 30 MG/ML VIAL IV. ONE (10:45)
[2016-12-23] MEDS ORDERED: VANCOMYCIN TROUGH ONE (11:30)
[2016-12-23] MEDS: IPRATROPIUM BROMIDE NEB SOLN 0.02% 2.5 ML VIAL INH SCH ×2 (14:04→19:58)
[2016-12-23] MEDS: LEVALBUTEROL 1.25MG/0.5ML NEB INH SCH ×2 (14:04→19:58)
--- NOTE | 2016-12-23 16:14 | Pharmacy Progress Note ---
Pharmacy Abx Dose Short Note Date of Service Dec 23, 2016. Assessment & Plan Assessment 41 year old female receiving Vancomycin for treatment of SSTI with septic emboli. Day # 3 of antimicrobial therapy. Item Value Date Time Vancomycin Level Trough 11.6 mcg/ml 12/23/16 1117 Based on subtherapeutic trough level of 11.6, increased vanc dosing to ~20mg/ kg. Trough level ordered for 4th maintenance dose in new regimen. Abscess Culture from 12/21/16 growing MSSA. Anticipating conversation with ID to consider alternative antimicrobial therapy. Plan Vancomycin * Vancomycin 2 gm iv q 8 hours * Trough level ordered for 12/24 @ 1130 Pharmacy will continue to follow and will adjust dose/frequency as necessary. Thank you.
--- NOTE | 2016-12-23 16:51 | Pulmonology Progress Note ---
Pulmonary Progress Note Date of Service Dec 23, 2016. Attending Dr. Franz Subjective Patient is feeling slightly better today. She states that she has not had continues sweats/chills. She continues to have right-sided chest pain with deep inspiration. She did have pain as well when she sneezed earlier, but she denies cough and chest tightness. She continues to have some dull pain in her right leg where her wound was debrided. Her wound culture is growing MSSA, and blood cultures are showing no growth to date. CTA of the chest was reviewed and viewed by me today. The patient continues on IV Vancomycin and Zosyn currently. She denies swallowing problems or coughing when eating. She has been afebrile and is saturating well on room air. Labs reviewed. WBC 5.19 Hgb 11.4 Creatinine was 0.68 BUN 8 Total protein 6.2 Albumin 2.7 Meds reviewed. Continues Zosyn and Vancomycin. Continues Atrovent, Xopenex ROS otherwise reviewed and negative except as mentioned in HPI Objective VS reviewed: Afebrile HR 95 RR 18 BP 134/88 SaO2 98% room air Echocardiogram showed no significant valvular pathology. General: Patient is awake, alert, cooperative, and in no acute distress. Head: Normocephalic, Atraumatic. ENT: PERRLA, No discharge, EOMI, Sclera normal Neck: Normal ROM. Trachea midline. No stridor Respiratory: Crackles in the bilateral bases L>R. No respiratory distress. No accessory muscle use. Cardiovascular: Tachycardia. No murmur appreciate. Normal S1/S2. Abdomen: Nontender to palpation. Normal bowel sounds hear throughout. No guarding. Abdomen is soft and nontender Back: Normal inspection. Extremities: Mild edema of the RLE. Normal ROM Neuro: Alert, Oriented x 3. CN II-XII grossly intact. Sensation and motor function grossly intact. Psych: Mood and affect are normal. Assessment & Plan MSSA infection of RLE Sepsis Right-sided pleural pain B/L pneumonia Patient has negative blood cultures, but positive wound cultures for MSSA. The patient's lung lesions may be related to infection or pneumonia but could also be evidence of vasculitis or less likely neoplasm. Therefore, will check ESR, CRP, MARCO, & ANCA. Because the majority of her infiltrates are lower lobes, recommend continuing both Vancomycin and Zosyn for concerns of infection. The patient appears to be improving, but likely will need repeat imaging in the near future to assess for resolution. Continue Toradol for pleuritic pain. Continue DVT prophylaxis. Supplement O2 PRN if necessary. Continue incentive spirometry. Data Medications: Current Inpatient Medications Medications (Trade) Dose Ordered Sig/Lesli Route Start Time Stop Time Status Last Admin Dose Admin Ioversol (Optiray 320) 111 ml UD PRN IV 12/21/16 17:00 12/25/16 16:59 Acetaminophen (Tylenol Tab) 650 mg Q4H PRN PO 12/21/16 20:00 01/20/17 19:59 Al Hydrox/Mg Hydrox/Simethicone (Maalox Max Susp) 15 ml Q4H PRN PO 12/21/16 20:00 01/20/17 19:59 Magnesium Hydroxide (Milk Of Magnesia Susp) 30 ml Q12H PRN PO 12/21/16 20:00 01/20/17 19:59 Ondansetron HCl (Zofran Inj) 4 mg Q6H PRN IV 12/21/16 20:00 01/20/17 19:59 12/22/16 19:32 4 MG Nitroglycerin (Nitrostat Tab) 0.4 mg UD PRN SL 12/21/16 20:00 01/20/17 19:59 Cyclobenzaprine HCl (Flexeril Tab) 10 mg TID PO 12/21/16 21:00 01/20/17 20:59 12/23/16 14:27 10 MG Doxepin HCl (Sinequan Cap) 150 mg HS PO 12/21/16 21:00 01/20/17 20:59 12/22/16 20:24 150 MG Metoprolol Succinate (Toprol Xl Tab) 25 mg DAILY PO 12/22/16 09:00 01/21/17 08:59 12/23/16 08:30 25 MG Multivitamins (Multivitamin Tab) 1 tab DAILY PO 12/22/16 09:00 01/21/17 08:59 12/23/16 08:30 1 TAB Levetiracetam (Keppra Tab) 1,000 mg BID PO 12/21/16 22:00 01/20/17 21:59 12/23/16 08:30 1,000 MG Levothyroxine Sodium (Synthroid Tab) 150 mcg DAILYBB PO 12/22/16 06:00 01/21/17 05:59 12/23/16 06:00 150 MCG Vancomycin HCl (Consult) 1 ea UD PRN N/A 12/21/16 20:45 01/20/17 20:44 Piperacillin Sod/ Tazobactam Sod 3.375 gm/Dextrose 115 ml @ 28.75 mls/ hr Q8H IV 12/21/16 22:00 12/31/16 21:59 12/23/16 15:29 28.75 MLS/HR Morphine Sulfate (MoRPHine SULFATE INJ) 4 mg Q4 PRN IV 12/21/16 20:45 01/04/17 20:44 12/22/16 07:42 4 MG Ketorolac Tromethamine (Toradol Inj) 30 mg Q6H PRN IV 12/21/16 20:45 12/26/16 20:44 12/22/16 19:32 30 MG Piperacillin Sod/ Tazobactam Sod (Consult) 1 ea UD PRN N/A 12/21/16 20:45 01/20/17 20:44 Heparin Sodium (Porcine) (Heparin Sq 5000 Unit/0.5ml) 5,000 unit Q12 SQ 12/22/16 09:00 01/21/17 08:59 12/23/16 08:33 5,000 UNIT Miscellaneous (Remove Transderm-Scop Patch) 1 ea TODAY@1500 ONCE N/A 12/25/16 15:00 12/25/16 15:01 Miscellaneous Information (Check Scopolamine Patch Placement) 1 ea QS N/A 12/22/16 16:00 12/25/16 07:59 12/23/16 08:00 1 EA Oxycodone/ Acetaminophen (Percocet 5-325mg Tab) 1 tab Q4H PRN PO 12/22/16 16:00 01/05/17 15:59 Oxycodone/ Acetaminophen (Percocet 5-325mg Tab) 2 tab Q4H PRN PO 12/22/16 16:00 01/05/17 15:59 Ipratropium [place] (Atrovent 0.02% 0.5MG/2.5ML Neb) 0.5 mg Q6R INH 12/23/16 09:00 01/22/17 08:59 12/23/16 14:04 0.5 MG Levalbuterol (Xopenex 1.25MG/ 0.5ML Neb) 1.25 mg Q6R INH 12/23/16 09:00 01/22/17 08:59 12/23/16 14:04 1.25 MG Vancomycin HCl 2000 mg/Sodium Chloride 540 ml @ 200 mls/hr Q8H IV 12/23/16 20:00 01/01/17 19:59 Vital Signs: Date Time Temp Pulse Resp B/P (MAP) Pulse Ox O2 Delivery O2 Flow Rate FiO2 12/23/16 15:05 36.8 95 18 134/88 (103) 98 Room Air 12/23/16 14:08 104 16 97 Room Air 12/23/16 13:35 36.8 85 16 151/89 (109) 98 Room Air 12/23/16 12:00 98 Room Air 12/23/16 12:00 37.0 87 16 131/87 (102) 98 Room Air 12/23/16 10:50 36.8 118 18 96 12/23/16 09:43 118 96 12/23/16 08:00 98 Room Air 12/23/16 07:29 36.8 98 18 131/74 (93) 98 12/23/16 05:08 37.0 109 16 137/86 (103) 94 Room Air 12/23/16 04:00 Room Air 12/23/16 00:12 36.9 103 16 133/85 (101) 94 Room Air 12/23/16 00:00 Room Air 12/22/16 20:00 Room Air 12/22/16 19:08 36.6 94 16 137/84 (101) 99 Room Air Laboratory Results: Last 24 Hours Test 12/23/16 06:09 12/23/16 11:17 12/23/16 14:19 White Blood Count 5.19 K/uL Red Blood Count 3.70 M/uL Hemoglobin 11.4 g/dL Hematocrit 32.9 % Mean Corpuscular Volume 88.9 fL Mean Corpuscular Hemoglobin 30.8 pg Mean Corpuscular Hemoglobin Concent 34.7 g/dl Platelet Count 148 K/uL Mean Platelet Volume 8.5 fL Neutrophils (%) (Auto) 54.1 % Lymphocytes (%) (Auto) 31.8 % Monocytes (%) (Auto) 9.6 % Eosinophils (%) (Auto) 3.7 % Basophils (%) (Auto) 0.6 % Neutrophils # (Auto) 2.81 K/uL Lymphocytes # (Auto) 1.65 K/uL Monocytes # (Auto) 0.50 K/uL Eosinophils # (Auto) 0.19 K/uL Basophils # (Auto) 0.03 K/uL RDW Standard Deviation 43.4 fL RDW Coefficient of Variation 13.3 % Immature Granulocyte % (Auto) 0.2 % Immature Granulocyte # (Auto) 0.01 K/uL Sodium Level 142 mmol/L Potassium Level 3.6 mmol/L Chloride Level 112 mmol/L Carbon Dioxide Level 23 mmol/L Anion Gap 7.0 mmol/L Blood Urea Nitrogen 8 mg/dl Creatinine 0.68 mg/dl Est Creatinine Clear Calc Drug Dose 132.1 ml/min Estimated GFR () 125.9 Estimated GFR (Non- 108.6 BUN/Creatinine Ratio 11.9 Random Glucose 76 mg/dl Calcium Level 8.2 mg/dl Magnesium Level 2.3 mg/dl Total Bilirubin 0.4 mg/dl Direct Bilirubin 0.1 mg/dl Aspartate Amino Transf (AST/SGOT) 23 U/L Alanine Aminotransferase (ALT/SGPT) 74 U/L Alkaline Phosphatase 80 U/L Total Protein 6.2 gm/dl Albumin 2.7 gm/dl Vancomycin Level Trough 11.6 mcg/ml Erythrocyte Sedimentation Rate 49 mm/hr C-Reactive Protein 13.60 mg/dl
--- NOTE | 2016-12-23 18:24 | Infectious Disease Progress Nt ---
Progress Note Date of Service Dec 23, 2016. Subjective Pt evaluation today including: conversation w/ patient, physical exam, chart review, lab review, review of studies, conversation w/ solution consultant, review of inpatient medication list Still with some right-sided chest pain. Otherwise feeling better. Surgical cultures growing methicillin sensitive Staph aureus as before. Leg pain better. Blood cultures remain negative All Other Systems: Reviewed and Negative Medications Current Inpatient Medications Medications (Trade) Dose Ordered Sig/Lesli Route Start Time Stop Time Status Last Admin Dose Admin Ioversol (Optiray 320) 111 ml UD PRN IV 12/21/16 17:00 12/25/16 16:59 Acetaminophen (Tylenol Tab) 650 mg Q4H PRN PO 12/21/16 20:00 01/20/17 19:59 Al Hydrox/Mg Hydrox/Simethicone (Maalox Max Susp) 15 ml Q4H PRN PO 12/21/16 20:00 01/20/17 19:59 Magnesium Hydroxide (Milk Of Magnesia Susp) 30 ml Q12H PRN PO 12/21/16 20:00 01/20/17 19:59 Ondansetron HCl (Zofran Inj) 4 mg Q6H PRN IV 12/21/16 20:00 01/20/17 19:59 12/22/16 19:32 4 MG Nitroglycerin (Nitrostat Tab) 0.4 mg UD PRN SL 12/21/16 20:00 01/20/17 19:59 Cyclobenzaprine HCl (Flexeril Tab) 10 mg TID PO 12/21/16 21:00 01/20/17 20:59 12/23/16 14:27 10 MG Doxepin HCl (Sinequan Cap) 150 mg HS PO 12/21/16 21:00 01/20/17 20:59 12/22/16 20:24 150 MG Metoprolol Succinate (Toprol Xl Tab) 25 mg DAILY PO 12/22/16 09:00 01/21/17 08:59 12/23/16 08:30 25 MG Multivitamins (Multivitamin Tab) 1 tab DAILY PO 12/22/16 09:00 01/21/17 08:59 12/23/16 08:30 1 TAB Levetiracetam (Keppra Tab) 1,000 mg BID PO 12/21/16 22:00 01/20/17 21:59 12/23/16 08:30 1,000 MG Levothyroxine Sodium (Synthroid Tab) 150 mcg DAILYBB PO 12/22/16 06:00 01/21/17 05:59 12/23/16 06:00 150 MCG Vancomycin HCl (Consult) 1 ea UD PRN N/A 12/21/16 20:45 01/20/17 20:44 Piperacillin Sod/ Tazobactam Sod 3.375 gm/Dextrose 115 ml @ 28.75 mls/ hr Q8H IV 12/21/16 22:00 12/31/16 21:59 12/23/16 15:29 28.75 MLS/HR Morphine Sulfate (MoRPHine SULFATE INJ) 4 mg Q4 PRN IV 12/21/16 20:45 01/04/17 20:44 12/22/16 07:42 4 MG Ketorolac Tromethamine (Toradol Inj) 30 mg Q6H PRN IV 12/21/16 20:45 12/26/16 20:44 12/22/16 19:32 30 MG Piperacillin Sod/ Tazobactam Sod (Consult) 1 ea UD PRN N/A 12/21/16 20:45 01/20/17 20:44 Heparin Sodium (Porcine) (Heparin Sq 5000 Unit/0.5ml) 5,000 unit Q12 SQ 12/22/16 09:00 01/21/17 08:59 12/23/16 08:33 5,000 UNIT Miscellaneous (Remove Transderm-Scop Patch) 1 ea TODAY@1500 ONCE N/A 12/25/16 15:00 12/25/16 15:01 Miscellaneous Information (Check Scopolamine Patch Placement) 1 ea QS N/A 12/22/16 16:00 12/25/16 07:59 12/23/16 08:00 1 EA Oxycodone/ Acetaminophen (Percocet 5-325mg Tab) 1 tab Q4H PRN PO 12/22/16 16:00 01/05/17 15:59 Oxycodone/ Acetaminophen (Percocet 5-325mg Tab) 2 tab Q4H PRN PO 12/22/16 16:00 01/05/17 15:59 Ipratropium [place] (Atrovent 0.02% 0.5MG/2.5ML Neb) 0.5 mg Q6R INH 12/23/16 09:00 01/22/17 08:59 12/23/16 14:04 0.5 MG Levalbuterol (Xopenex 1.25MG/ 0.5ML Neb) 1.25 mg Q6R INH 12/23/16 09:00 01/22/17 08:59 12/23/16 14:04 1.25 MG Vancomycin HCl 2000 mg/Sodium Chloride 540 ml @ 200 mls/hr Q8H IV 12/23/16 20:00 01/01/17 19:59 Objective Vital Signs Date Time Temp Pulse Resp B/P (MAP) Pulse Ox O2 Delivery O2 Flow Rate FiO2 12/23/16 15:05 36.8 95 18 134/88 (103) 98 Room Air 12/23/16 14:08 104 16 97 Room Air 12/23/16 13:35 36.8 85 16 151/89 (109) 98 Room Air 12/23/16 12:00 98 Room Air 12/23/16 12:00 37.0 87 16 131/87 (102) 98 Room Air 12/23/16 10:50 36.8 118 18 96 12/23/16 09:43 118 96 12/23/16 08:00 98 Room Air 12/23/16 07:29 36.8 98 18 131/74 (93) 98 12/23/16 05:08 37.0 109 16 137/86 (103) 94 Room Air 12/23/16 04:00 Room Air 12/23/16 00:12 36.9 103 16 133/85 (101) 94 Room Air 12/23/16 00:00 Room Air 12/22/16 20:00 Room Air 12/22/16 19:08 36.6 94 16 137/84 (101) 99 Room Air Physical Exam General Appearance: WD/WN, no apparent distress Eyes: normal inspection, EOMI, sclerae normal ENT: normal ENT inspection, pharynx normal Neck: supple, no adenopathy, trachea midline Respiratory/Chest: lungs clear, normal breath sounds, no respiratory distress Cardiovascular: regular rate, rhythm, no gallop, no murmur Abdomen: normal bowel sounds, non tender, soft, no organomegaly Extremities: no calf tenderness, normal capillary refill Neurologic/Psychiatric: alert, oriented x 3 Skin: normal color, no rash, + pertinent finding (Surgical dressing intact) Lymphatic: no adenopathy Laboratory Results RUN DATE: 12/24/16 [facility] LAB PAGE 1 RUN TIME: 906 Specimen Inquiry PATIENT: VERONICA WALLACE LOC: [facility] U # : [id number] AGE/SX: 41/F ROOM: [facility] REG : 12/21/[address]: Alcon Moreau MD, PhD : 1975 BED: 1 DIS : STATUS: ADM IN TLOC: SPEC #: [id number] EVELIN: 12/22/16 STATUS: RES REQ #: [id number] RECD: 12/22/[address] [facility] [address]: Alcon Moreau MD , PhD SOURCE: ABSCESS ENTR: 12/22/[address] [facility] [address]: Khoi Johnson MD SPDC: LEG Hamida Child MD Foley, Kimberly ., M.D. Germano, Adela ., M.D. Kedem, Roy ., M.D. Tyson,Mely Macedo, C.R.N.P. ORDERED: AER/MARCO CULTSMR Procedure Result Verified Site GRAM STAIN Final 12/23/16 RESULT MANY WBCs SEEN MODERATE GRAM POSITIVE COCCI OR AER/MARCO CULT Preliminary 12/24/16 Organism 1 STAPHYLOCOCCUS AUREUS QUANITY MODERATE SENS SENSITIVITY TO FOLLOW 1. STAPHYLOCOCCUS AUREUS Target Route Dose RX AB Cost M.I.C. IQ ------ ----- ------ -- ------ -------- - ------ TRIMET/SULFA S <=0.5/ 9.5 * OXACILLIN S <=0.25 VANCOMYCIN S 1 ERYTHROMYCIN R >4 TETRACYCLINE S <=4 CLINDAMYCIN R <=0.5 DAPTOMYCIN S <=0.5 S = SENSITIVE I = INTERMEDIATE R = RESISTANT Last 24 Hours Test 12/23/16 06:09 12/23/16 11:17 12/23/16 14:19 White Blood Count 5.19 K/uL Red Blood Count 3.70 M/uL Hemoglobin 11.4 g/dL Hematocrit 32.9 % Mean Corpuscular Volume 88.9 fL Mean Corpuscular Hemoglobin 30.8 pg Mean Corpuscular Hemoglobin Concent 34.7 g/dl Platelet Count 148 K/uL Mean Platelet Volume 8.5 fL Neutrophils (%) (Auto) 54.1 % Lymphocytes (%) (Auto) 31.8 % Monocytes (%) (Auto) 9.6 % Eosinophils (%) (Auto) 3.7 % Basophils (%) (Auto) 0.6 % Neutrophils # (Auto) 2.81 K/uL Lymphocytes # (Auto) 1.65 K/uL Monocytes # (Auto) 0.50 K/uL Eosinophils # (Auto) 0.19 K/uL Basophils # (Auto) 0.03 K/uL RDW Standard Deviation 43.4 fL RDW Coefficient of Variation 13.3 % Immature Granulocyte % (Auto) 0.2 % Immature Granulocyte # (Auto) 0.01 K/uL Sodium Level 142 mmol/L Potassium Level 3.6 mmol/L Chloride Level 112 mmol/L Carbon Dioxide Level 23 mmol/L Anion Gap 7.0 mmol/L Blood Urea Nitrogen 8 mg/dl Creatinine 0.68 mg/dl Est Creatinine Clear Calc Drug Dose 132.1 ml/min Estimated GFR () 125.9 Estimated GFR (Non- 108.6 BUN/Creatinine Ratio 11.9 Random Glucose 76 mg/dl Calcium Level 8.2 mg/dl Magnesium Level 2.3 mg/dl Total Bilirubin 0.4 mg/dl Direct Bilirubin 0.1 mg/dl Aspartate Amino Transf (AST/SGOT) 23 U/L Alanine Aminotransferase (ALT/SGPT) 74 U/L Alkaline Phosphatase 80 U/L Total Protein 6.2 gm/dl Albumin 2.7 gm/dl Vancomycin Level Trough 11.6 mcg/ml Erythrocyte Sedimentation Rate 49 mm/hr C-Reactive Protein 13.60 mg/dl Assessment and Plan 41-year-old female with right lower extremity abscess with Staph aureus, methicillin sensitive, with what appears to be septic pulmonary emboli despite negative blood cultures. Patient changed to IV cefazolin, would consider transesophageal echocardiogram to evaluate for possible right-sided endocarditis. Will follow.
[2016-12-23] MEDS: CEFAZOLIN IV 2,000 MG in SYRINGE 0 ML IV SCH (19:09)
[2016-12-23] MEDS ORDERED: VANCOMYCIN INJ 2,000 MG in SODIUM CHLORIDE 0.9% 500ML 500 ML IV SCH (20:00)
[2016-12-23] MEDS: DOXEPIN HCL 75 MG CAP PO SCH (21:00)
--- NOTE | 2016-12-23 21:55 | Family Medicine Progress Note ---
Progress Note Date of Service Dec 23, 2016. Subjective Pt evaluation today including: conversation w/ patient, physical exam, chart review, lab review, review of studies Pain: moderate, controlled PO Intake: adequate Voiding: no voiding problems Pt reports feeling better today, denies chest pain or difficulty breathing, although says when she goes to sneeze she feels a lot of pain in her right posterior chest. Says the swelling has greatly decreased in her RT leg. Reports persistent migraine head ache for which she usually takes naratriptan and methylprednisone. Otherwise feels well and wishes to get out of bed and take a shower. Constitutional: + problem reported (headache), No fever, No chills Respiratory: No cough, No sputum, No wheezing Cardiovascular: No chest pain, No palpitations Abdomen: No pain, No nausea, No vomiting Medications Current Inpatient Medications Medications (Trade) Dose Ordered Sig/Lesli Route Start Time Stop Time Status Last Admin Dose Admin Ioversol (Optiray 320) 111 ml UD PRN IV 12/21/16 17:00 12/25/16 16:59 Acetaminophen (Tylenol Tab) 650 mg Q4H PRN PO 12/21/16 20:00 01/20/17 19:59 Al Hydrox/Mg Hydrox/Simethicone (Maalox Max Susp) 15 ml Q4H PRN PO 12/21/16 20:00 01/20/17 19:59 Magnesium Hydroxide (Milk Of Magnesia Susp) 30 ml Q12H PRN PO 12/21/16 20:00 01/20/17 19:59 Ondansetron HCl (Zofran Inj) 4 mg Q6H PRN IV 12/21/16 20:00 01/20/17 19:59 12/22/16 19:32 4 MG Nitroglycerin (Nitrostat Tab) 0.4 mg UD PRN SL 12/21/16 20:00 01/20/17 19:59 Cyclobenzaprine HCl (Flexeril Tab) 10 mg TID PO 12/21/16 21:00 01/20/17 20:59 12/23/16 21:00 10 MG Doxepin HCl (Sinequan Cap) 150 mg HS PO 12/21/16 21:00 01/20/17 20:59 12/23/16 21:00 150 MG Metoprolol Succinate (Toprol Xl Tab) 25 mg DAILY PO 12/22/16 09:00 01/21/17 08:59 12/23/16 08:30 25 MG Multivitamins (Multivitamin Tab) 1 tab DAILY PO 12/22/16 09:00 01/21/17 08:59 12/23/16 08:30 1 TAB Levetiracetam (Keppra Tab) 1,000 mg BID PO 12/21/16 22:00 01/20/17 21:59 12/23/16 21:01 1,000 MG Levothyroxine Sodium (Synthroid Tab) 150 mcg DAILYBB PO 12/22/16 06:00 01/21/17 05:59 12/23/16 06:00 150 MCG Morphine Sulfate (MoRPHine SULFATE INJ) 4 mg Q4 PRN IV 12/21/16 20:45 01/04/17 20:44 12/22/16 07:42 4 MG Ketorolac Tromethamine (Toradol Inj) 30 mg Q6H PRN IV 12/21/16 20:45 12/26/16 20:44 12/22/16 19:32 30 MG Heparin Sodium (Porcine) (Heparin Sq 5000 Unit/0.5ml) 5,000 unit Q12 SQ 12/22/16 09:00 01/21/17 08:59 12/23/16 08:33 5,000 UNIT Oxycodone/ Acetaminophen (Percocet 5-325mg Tab) 1 tab Q4H PRN PO 12/22/16 16:00 01/05/17 15:59 Oxycodone/ Acetaminophen (Percocet 5-325mg Tab) 2 tab Q4H PRN PO 12/22/16 16:00 01/05/17 15:59 Ipratropium [place] (Atrovent 0.02% 0.5MG/2.5ML Neb) 0.5 mg Q6R INH 12/23/16 09:00 01/22/17 08:59 12/23/16 19:58 0.5 MG Levalbuterol (Xopenex 1.25MG/ 0.5ML Neb) 1.25 mg Q6R INH 12/23/16 09:00 01/22/17 08:59 12/23/16 19:58 1.25 MG Cefazolin Sodium 2000 mg/Syringe 10 ml @ 2.5 mls/min Q8H IV 12/23/16 19:00 01/02/17 18:59 12/23/16 19:09 2.5 MLS/MIN Objective Physical Exam General Appearance: WD/WN, no apparent distress Eyes: normal inspection, EOMI Respiratory/Chest: chest non-tender, lungs clear, normal breath sounds, no respiratory distress Cardiovascular: regular rate, rhythm, no gallop, no JVD Abdomen: normal bowel sounds, non tender, soft Extremities: normal range of motion, + pertinent finding (dressing covering 3 cm round wound with packing. erythema receded from marking on leg.) Neurologic/Psychiatric: alert, normal mood/affect, oriented x 3 Laboratory Results 12/23/16 06:09 Red Blood Count 3.70, Mean Corpuscular Volume 88.9, Mean Corpuscular Hemoglobin 30.8, Mean Corpuscular Hemoglobin Concent 34.7, Mean Platelet Volume 8.5, Neutrophils (%) (Auto) 54.1, Lymphocytes (%) (Auto) 31.8, Monocytes (%) (Auto) 9.6, Eosinophils (%) (Auto) 3.7, Basophils (%) (Auto) 0.6, Neutrophils # (Auto) 2.81, Lymphocytes # (Auto) 1.65, Monocytes # (Auto) 0.50, Eosinophils # (Auto) 0.19, Basophils # (Auto) 0.03 12/23/16 06:09 Test 12/23/16 06:09 12/23/16 11:17 12/23/16 14:19 White Blood Count 5.19 K/uL (4.8-10.8) Red Blood Count 3.70 M/uL (4.2-5.4) Hemoglobin 11.4 g/dL (12.0-16.0) Hematocrit 32.9 % (37-47) Mean Corpuscular Volume 88.9 fL (80-100) Mean Corpuscular Hemoglobin 30.8 pg (25-34) Mean Corpuscular Hemoglobin Concent 34.7 g/dl (32-36) Platelet Count 148 K/uL (130-400) Mean Platelet Volume 8.5 fL (7.4-10.4) Neutrophils (%) (Auto) 54.1 % Lymphocytes (%) (Auto) 31.8 % Monocytes (%) (Auto) 9.6 % Eosinophils (%) (Auto) 3.7 % Basophils (%) (Auto) 0.6 % Neutrophils # (Auto) 2.81 K/uL (1.4-6.5) Lymphocytes # (Auto) 1.65 K/uL (1.2-3.4) Monocytes # (Auto) 0.50 K/uL (0.11-0.59) Eosinophils # (Auto) 0.19 K/uL (0-0.5) Basophils # (Auto) 0.03 K/uL (0-0.2) RDW Standard Deviation 43.4 fL (36.4-46.3) RDW Coefficient of Variation 13.3 % (11.5-14.5) Immature Granulocyte % (Auto) 0.2 % Immature Granulocyte # (Auto) 0.01 K/uL (0.00-0.02) Anion Gap 7.0 mmol/L (3-11) Est Creatinine Clear Calc Drug Dose 132.1 ml/min Estimated GFR () 125.9 Estimated GFR (Non- 108.6 BUN/Creatinine Ratio 11.9 (10-20) Calcium Level 8.2 mg/dl (8.5-10.1) Magnesium Level 2.3 mg/dl (1.8-2.4) Total Bilirubin 0.4 mg/dl (0.2-1) Direct Bilirubin 0.1 mg/dl (0-0.2) Aspartate Amino Transf (AST/SGOT) 23 U/L (15-37) Alanine Aminotransferase (ALT/SGPT) 74 U/L (12-78) Alkaline Phosphatase 80 U/L (45-117) Total Protein 6.2 gm/dl (6.4-8.2) Albumin 2.7 gm/dl (3.4-5.0) Vancomycin Level Trough 11.6 mcg/ml (SEE COMMENT) Erythrocyte Sedimentation Rate 49 mm/hr (0-21) C-Reactive Protein 13.60 mg/dl (0-0.29) Assessment and Plan 41F here for abscess of the RT LE and pleuritic chest pain developed after taking a hay ride and noticing what looked like an insect bite on her leg. On admission pt had failed initial 5 day course of Bactrim prescribed by outpatient physician. Found to have pneumonitis and being treated with antibiotics. Hospital Day 2: 12/23 Abscess of RT LE 04/02 to possible insect bite, unknown - I&D done yesterday, wound is packed, swelling decreased, erythema receding 90% . - Wound cx + staph, methicillin sensitive. Lyme negative. - continue wound care - Per ID recs consider TANMAY to evaluate for RT sided heart failure due to evidence on CT angio of possible septic emboli. - Echo done on admission showed EF 50-55% with no WMA. Cardio consulted. - Blood cx: NGTD. - Antibiotic: dc'ed Vanc and Zosyn and switched to IV Cefazolin, appreciate ID recs. Pneumonitis/pleuritic chest pain - CT angio found foci of irregular nodularity suggestive of septic emboli, though on differential includes vasculitis or neoplasm. - On DC: recommend follow up CT scan in 2-3 months to document resolution of nodules. - currently on NSAIDS (toradol) regimen for acute migraines Elevated liver enzymes - AST/ALT 95/159 - possibly due to course of infection, or also chronic steroid use? - will follow to resolution Elevated TSH/hypothyroid - TSH on admission elevated - On DC: recommend recheck of TSH with PCP in 1-2 months. - continue levothyroxine Migraines - pt takes naratriptan 2.5 mg with methypred 4 mg for acute headaches - currently administering toradol with phenergen - NSAIDS also recommended per pulm to help control pleuritic chest pain. - continue home cyclobenzaprine and doxepin - follow. PPX: Heparin (refused today's dose). Code: FULL Dispo: med/surg Continued [facility] stay due to: multiple IV medications needed Discharge planning: home Resident Tracking Resident Involvement: Resident Care Provided Care Provided: Adult Hospital Medicine
[2016-12-24] VITALS (12 sets, daily range): BP systolic 121–152; BP diastolic 63–97; PULSE 97–112; TEMP 36.3–37.2; O2SAT 95–100
[2016-12-24] MEDS: IPRATROPIUM BROMIDE NEB SOLN 0.02% 2.5 ML VIAL INH SCH ×5 (01:27→21:23)
[2016-12-24] MEDS: LEVALBUTEROL 1.25MG/0.5ML NEB INH SCH ×5 (01:27→21:23)
[2016-12-24] MEDS: CEFAZOLIN IV 2,000 MG in SYRINGE 0 ML IV SCH ×3 (02:50→18:29)
[2016-12-24] MEDS: LEVOTHYROXINE 150 MCG TAB PO SCH (05:43)
[2016-12-24 07:46] LABS: BASO % 0.7 %; BASO ABS # 0.04 K/uL (0-0.2); COMPLETE YES; EOS % 3.4 %; HEMATOCRIT 32.9 % (37-47); IG% 0.3 %; LYMPH ABS # 1.43 K/uL (1.2-3.4); MEAN CELL VOLUME 90.1 fL (80-100); MEAN CORPUSCULAR HGB CONC 34.3 g/dl (32-36); MONO % 8.2 %; NEUT % 63.4 %; PLATELET COUNT 171 K/uL (130-400); RED BLOOD COUNT 3.65 M/uL (4.2-5.4); WHITE BLOOD COUNT 5.96 K/uL (4.8-10.8)
[2016-12-24 08:16] LABS: BUN/CREATININE RATIO 10.6 (10-20); CALCIUM 8.7 mg/dl (8.5-10.1); CREATININE 0.74 mg/dl (0.60-1.20)
[2016-12-24 08:20] LABS: ALB/GLOB RATIO 0.8 (0.9-2)
[2016-12-24] MEDS: LEVETIRACETAM 500 MG TAB PO SCH ×2 (09:10→22:13)
[2016-12-24] MEDS: CYCLOBENZAPRINE HCL 10 MG TAB PO SCH ×3 (09:10→22:12)
[2016-12-24] MEDS: MULTIVITAMIN TAB PO SCH (09:11)
[2016-12-24] MEDS: METOPROLOL SUCC 25MG EXT REL TAB PO SCH (09:11)
[2016-12-24] MEDS: HEPARIN SOD 5000 UNIT/0.5 ML CARP SQ SCH ×2 (09:16→22:11)
--- NOTE | 2016-12-24 10:44 | Surgery Progress Note ---
Surgery Progress Note Date of Service Dec 24, 2016. Subjective + feeling well Wound vac placed this morning. Feels much better and wants to go home. Objective Vital Signs: Date Time Temp Pulse Resp B/P (MAP) Pulse Ox O2 Delivery O2 Flow Rate FiO2 12/24/16 07:35 36.8 112 20 121/85 (97) 95 Room Air 12/24/16 07:24 100 14 95 Room Air 12/24/16 01:27 112 16 95 Room Air 12/23/16 23:55 Room Air 12/23/16 23:20 37.3 103 18 143/89 (107) 100 Room Air 12/23/16 20:01 102 14 97 Room Air 12/23/16 16:30 Room Air 12/23/16 15:05 36.8 95 18 134/88 (103) 98 Room Air 12/23/16 14:08 104 16 97 Room Air 12/23/16 13:35 36.8 85 16 151/89 (109) 98 Room Air 12/23/16 12:00 98 Room Air 12/23/16 12:00 37.0 87 16 131/87 (102) 98 Room Air 12/23/16 10:50 36.8 118 18 96 General Appearance: WD/WN, no apparent distress Incision(s): clean, dry, intact, findings (improved erythema and edema) Laboratory Results: Results Past 24 Hours Test 12/23/16 11:17 12/23/16 14:19 12/24/16 07:04 Range/Units Vancomycin Level Trough 11.6 SEE COMMENT mcg/ml Erythrocyte Sedimentation Rate 49 0-21 mm/hr C-Reactive Protein 13.60 0-0.29 mg/dl White Blood Count 5.96 4.8-10.8 K/uL Red Blood Count 3.65 4.2-5.4 M/uL Hemoglobin 11.3 12.0-16.0 g/dL Hematocrit 32.9 37-47 % Mean Corpuscular Volume 90.1 80-100 fL Mean Corpuscular Hemoglobin 31.0 25-34 pg Mean Corpuscular Hemoglobin Concent 34.3 32-36 g/dl Platelet Count 171 130-400 K/uL Mean Platelet Volume 9.0 7.4-10.4 fL Neutrophils (%) (Auto) 63.4 % Lymphocytes (%) (Auto) 24.0 % Monocytes (%) (Auto) 8.2 % Eosinophils (%) (Auto) 3.4 % Basophils (%) (Auto) 0.7 % Neutrophils # (Auto) 3.78 1.4-6.5 K/uL Lymphocytes # (Auto) 1.43 1.2-3.4 K/uL Monocytes # (Auto) 0.49 0.11-0.59 K/uL Eosinophils # (Auto) 0.20 0-0.5 K/uL Basophils # (Auto) 0.04 0-0.2 K/uL RDW Standard Deviation 43.5 36.4-46.3 fL RDW Coefficient of Variation 13.1 11.5-14.5 % Immature Granulocyte % (Auto) 0.3 % Immature Granulocyte # (Auto) 0.02 0.00-0.02 K/uL Sodium Level 143 136-145 mmol/L Potassium Level 4.0 3.5-5.1 mmol/L Chloride Level 111 98-107 mmol/L Carbon Dioxide Level 25 21-32 mmol/L Anion Gap 7.0 3-11 mmol/L Blood Urea Nitrogen 8 7-18 mg/dl Creatinine 0.74 0.60-1.20 mg/dl Est Creatinine Clear Calc Drug Dose 121.4 ml/min Estimated GFR () 116.6 Estimated GFR (Non- 100.6 BUN/Creatinine Ratio 10.6 10-20 Random Glucose 85 70-99 mg/dl Calcium Level 8.7 8.5-10.1 mg/dl Total Bilirubin 0.3 0.2-1 mg/dl Aspartate Amino Transf (AST/SGOT) 53 15-37 U/L Alanine Aminotransferase (ALT/SGPT) 90 12-78 U/L Alkaline Phosphatase 101 45-117 U/L Total Protein 6.5 6.4-8.2 gm/dl Albumin 2.8 3.4-5.0 gm/dl Globulin 3.7 2.5-4.0 gm/dl Albumin/Globulin Ratio 0.8 0.9-2 Assessment & Plan POD # 2 s/p debridement of RLE wound/eschar in setting of septic pulmonary emboli. Doing well. Wound vac placed. Will sign off - please have pt f/u with wound care clinic and also a postop appt with me in 2 wks.
[2016-12-24] MEDS ORDERED: VANCOMYCIN TROUGH ONE (11:30)
[2016-12-24] MEDS ORDERED: BENZOCAIN/TETRACA/BUTAM SPRAY 200 APPLN/20 GM SPRY ONE (14:05)
[2016-12-24] MEDS ORDERED: FENTANYL CITRATE INJ 50 MCG/1 ML 2 ML VIAL ONE (14:05)
[2016-12-24] MEDS ORDERED: CANNULA ONE ×2 (14:06)
[2016-12-24] MEDS ORDERED: MIDAZOLAM HCL 1 MG/ML 2ML VIAL ONE (14:06)
--- NOTE | 2016-12-24 15:26 | TEE ---
*NOTICE TO RECEIVING [employer] This information is strictly Confidential and protected under [place] law. [place] law prohibits you from making any further disclosure of this information unless further disclosure is expressly permitted by the written consent of the person to whom it pertains or is authorized by law. A general authorization for the release of medical or other information is not sufficient for this purpose. Hospital accepts no responsibility if the information is made available to any other person, INCLUDING THE PATIENT. Interpretation Summary * Name: VERONICA WALLACE Study Date: 12/24/2016 02:14 PM BP: 152/63 mmHg * Patient Location: .MSN\S\N381\S\1 HR: 112 * : 1975 (M/d/yyyy) Gender: Female Height: 67 in * Age: 41 yrs Ethnicity: [place] Weight: 212 lb * Ordering Physician: Claus Germain * Referring Physician: Self, Referred * Performed By: Debbie Carrlilo RDCS * * Reason For Study: Endocarditis * BSA: 2.1 m2 * -- Conclusions -- * There is no vegetation involving the tricuspid valve * No obvious vegetation involving the pulmonic valve although visualization was difficult and a small lesion could not be definitively excluded * No aortic or mitral vegetations Procedure Details * The transesophageal portion of this study was personally supervised by the undersigned interpreting physician. * TANMAY Probe #1 utilized for procedure. * The study was performed in Cardiopulmonary Department. * Time out was conducted by the physician, nurse, and technical sales support manager with positive identification of patient and procedure. * Informed consent for Transesophageal Echocardiogram was obtained prior to the procedure. * An intravenous line was placed. A topical anesthetic agent was used for oropharangeal anesthesia. A bite block was inserted. * The patient's vital signs, including blood pressure, heart rate, pulse oximetry and cardiac rhythm were monitored throughout the procedure . * Fentanyl 75 mcg was administered for procedural sedation. * Midazolam 3 mg administered for sedation. * The posterior oropharynx was anesthetized using a topical anesthetic spray. A bite guard was inserted. * A multifrequency, multiplane transesopheageal echocardiographic endoscope was inserted and manipulated in the standard fashion to achieve multiplane views. * The transesophageal probe was passed without difficulty. * The patient tolerated the procedure well without evidence of orophangeal or esophageal trauma. * A 2D transesophageal echocardiogram with spectral and color flow Doppler was performed. * The usual views were obtained; basal, mid-esophageal, and aortic views. Start time: 14:18 End time: 14:39 * A 2D transesophageal echocardiogram was performed. * A 2D transesophageal echocardiogram with color flow Doppler was performed. Atria * No thrombus is detected in the left atrial appendage. * The interatrial septum is intact with no evidence for an atrial septal defect. Mitral Valve * The mitral valve anatomy is normal. * There is trace mitral regurgitation. Tricuspid Valve * The tricuspid valve anatomy is normal. * There is some redundancy and thickening of the chordal structure of the tricuspid valve Aortic Valve * The aortic valve is normal in structure and function. * The aortic valve is trileaflet. * There is no significant aortic regurgitation. Pulmonic Valve * The pulmonic valve is not well visualized. Pericardium * There is no pericardial effusion.
--- NOTE | 2016-12-24 17:35 | Family Medicine Progress Note ---
Progress Note Date of Service Dec 24, 2016. Subjective Pt evaluation today including: conversation w/ patient, physical exam, chart review, lab review, review of studies Pain: controlled PO Intake: adequate Voiding: no voiding problems Pt reports feeling improved today, less pain in her leg and also less pain in her RT mid torso/back area. Denies discomfort while walking, laying or sitting. But does complain of pain in RT mid/torso back when deep inspiration - can be 7/ 10 then. Otherwise head ache is improved, denies palpitations, eating well, stooling well. Pt's father is in the room with patient, at bedside. Constitutional: No fever, No chills Respiratory: No cough, No sputum, No wheezing Cardiovascular: No orthopnea, No edema, No palpitations Medications Current Inpatient Medications Medications (Trade) Dose Ordered Sig/Lesli Route Start Time Stop Time Status Last Admin Dose Admin Ioversol (Optiray 320) 111 ml UD PRN IV 12/21/16 17:00 12/25/16 16:59 Acetaminophen (Tylenol Tab) 650 mg Q4H PRN PO 12/21/16 20:00 01/20/17 19:59 Al Hydrox/Mg Hydrox/Simethicone (Maalox Max Susp) 15 ml Q4H PRN PO 12/21/16 20:00 01/20/17 19:59 Magnesium Hydroxide (Milk Of Magnesia Susp) 30 ml Q12H PRN PO 12/21/16 20:00 01/20/17 19:59 Ondansetron HCl (Zofran Inj) 4 mg Q6H PRN IV 12/21/16 20:00 01/20/17 19:59 12/22/16 19:32 4 MG Nitroglycerin (Nitrostat Tab) 0.4 mg UD PRN SL 12/21/16 20:00 01/20/17 19:59 Cyclobenzaprine HCl (Flexeril Tab) 10 mg TID PO 12/21/16 21:00 01/20/17 20:59 12/24/16 16:00 10 MG Doxepin HCl (Sinequan Cap) 150 mg HS PO 12/21/16 21:00 01/20/17 20:59 12/23/16 21:00 150 MG Metoprolol Succinate (Toprol Xl Tab) 25 mg DAILY PO 12/22/16 09:00 01/21/17 08:59 12/24/16 09:11 25 MG Multivitamins (Multivitamin Tab) 1 tab DAILY PO 12/22/16 09:00 01/21/17 08:59 12/24/16 09:11 1 TAB Levetiracetam (Keppra Tab) 1,000 mg BID PO 12/21/16 22:00 01/20/17 21:59 12/24/16 09:10 1,000 MG Levothyroxine Sodium (Synthroid Tab) 150 mcg DAILYBB PO 12/22/16 06:00 01/21/17 05:59 12/24/16 05:43 150 MCG Morphine Sulfate (MoRPHine SULFATE INJ) 4 mg Q4 PRN IV 12/21/16 20:45 01/04/17 20:44 12/22/16 07:42 4 MG Ketorolac Tromethamine (Toradol Inj) 30 mg Q6H PRN IV 12/21/16 20:45 12/26/16 20:44 12/22/16 19:32 30 MG Heparin Sodium (Porcine) (Heparin Sq 5000 Unit/0.5ml) 5,000 unit Q12 SQ 12/22/16 09:00 01/21/17 08:59 12/24/16 09:16 5,000 UNIT Oxycodone/ Acetaminophen (Percocet 5-325mg Tab) 1 tab Q4H PRN PO 12/22/16 16:00 01/05/17 15:59 Oxycodone/ Acetaminophen (Percocet 5-325mg Tab) 2 tab Q4H PRN PO 12/22/16 16:00 01/05/17 15:59 Ipratropium [place] (Atrovent 0.02% 0.5MG/2.5ML Neb) 0.5 mg Q6R INH 12/23/16 09:00 01/22/17 08:59 12/24/16 07:22 0.5 MG Levalbuterol (Xopenex 1.25MG/ 0.5ML Neb) 1.25 mg Q6R INH 12/23/16 09:00 01/22/17 08:59 12/24/16 07:22 1.25 MG Cefazolin Sodium 2000 mg/Syringe 10 ml @ 2.5 mls/min Q8H IV 12/23/16 19:00 01/02/17 18:59 12/24/16 10:32 2.5 MLS/MIN Objective Physical Exam General Appearance: WD/WN, no apparent distress Eyes: normal inspection, EOMI Respiratory/Chest: lungs clear, normal breath sounds, no respiratory distress, + pertinent finding (subjective pain on deep inspiration on RT ribs, posteriorly and mid axillary) Cardiovascular: no edema, no gallop, no JVD, + pertinent finding (sinus tachycardia) Abdomen: normal bowel sounds, non tender, soft Extremities: normal range of motion, + pertinent finding (wound vac in tact, RT LE) Neurologic/Psychiatric: alert, normal mood/affect, oriented x 3 Skin: normal color, warm/dry Laboratory Results 12/24/16 07:04 Red Blood Count 3.65, Mean Corpuscular Volume 90.1, Mean Corpuscular Hemoglobin 31.0, Mean Corpuscular Hemoglobin Concent 34.3, Mean Platelet Volume 9.0, Neutrophils (%) (Auto) 63.4, Lymphocytes (%) (Auto) 24.0, Monocytes (%) (Auto) 8.2, Eosinophils (%) (Auto) 3.4, Basophils (%) (Auto) 0.7, Neutrophils # (Auto) 3.78, Lymphocytes # (Auto) 1.43, Monocytes # (Auto) 0.49, Eosinophils # (Auto) 0.20, Basophils # (Auto) 0.04 12/24/16 07:04 Test 12/24/16 07:04 White Blood Count 5.96 K/uL (4.8-10.8) Red Blood Count 3.65 M/uL (4.2-5.4) Hemoglobin 11.3 g/dL (12.0-16.0) Hematocrit 32.9 % (37-47) Mean Corpuscular Volume 90.1 fL (80-100) Mean Corpuscular Hemoglobin 31.0 pg (25-34) Mean Corpuscular Hemoglobin Concent 34.3 g/dl (32-36) Platelet Count 171 K/uL (130-400) Mean Platelet Volume 9.0 fL (7.4-10.4) Neutrophils (%) (Auto) 63.4 % Lymphocytes (%) (Auto) 24.0 % Monocytes (%) (Auto) 8.2 % Eosinophils (%) (Auto) 3.4 % Basophils (%) (Auto) 0.7 % Neutrophils # (Auto) 3.78 K/uL (1.4-6.5) Lymphocytes # (Auto) 1.43 K/uL (1.2-3.4) Monocytes # (Auto) 0.49 K/uL (0.11-0.59) Eosinophils # (Auto) 0.20 K/uL (0-0.5) Basophils # (Auto) 0.04 K/uL (0-0.2) RDW Standard Deviation 43.5 fL (36.4-46.3) RDW Coefficient of Variation 13.1 % (11.5-14.5) Immature Granulocyte % (Auto) 0.3 % Immature Granulocyte # (Auto) 0.02 K/uL (0.00-0.02) Anion Gap 7.0 mmol/L (3-11) Est Creatinine Clear Calc Drug Dose 121.4 ml/min Estimated GFR () 116.6 Estimated GFR (Non- 100.6 BUN/Creatinine Ratio 10.6 (10-20) Calcium Level 8.7 mg/dl (8.5-10.1) Total Bilirubin 0.3 mg/dl (0.2-1) Aspartate Amino Transf (AST/SGOT) 53 U/L (15-37) Alanine Aminotransferase (ALT/SGPT) 90 U/L (12-78) Alkaline Phosphatase 101 U/L (45-117) Total Protein 6.5 gm/dl (6.4-8.2) Albumin 2.8 gm/dl (3.4-5.0) Globulin 3.7 gm/dl (2.5-4.0) Albumin/Globulin Ratio 0.8 (0.9-2) Assessment and Plan 41F here for abscess of the RT LE and pleuritic chest pain developed after taking a hay ride and noticing what looked like an insect bite on her leg. On admission pt had failed initial 5 day course of Bactrim prescribed by outpatient physician. Found to have pneumonitis and being treated with antibiotics. Hospital Day 3: 12/24 Abscess of RT LE 2/2 to possible insect bite, unknown - Wound cx + staph, methicillin sensitive. Lyme negative. Blood cx: NGTD. - I&D done, wound packed, now with wound vac. Clinical improvement, swelling decreased, erythema receded almost completely. - Echo done on admission showed EF 50-55% with no WMA. Cardio consulted. - TANMAY performed today show no vegetations. - Antibiotic: Received IV Vanc 1 gm x1, and 1.25 gm x 5. Received Zosyn IV 4.5 gm x 1, and 3.375 gm x 6. Dc'ed. Now on Cefazolin IV has received 2gm x 3. Continue. Appreciate ID recs. Pneumonitis/pleuritic chest pain - CT angio found foci of irregular nodularity suggestive of septic emboli, though on differential includes vasculitis or neoplasm. - On DC: recommend follow up CT scan in 2-3 months to document resolution of nodules. - has received NSAIDS (toradol) regimen for acute migraine. - Continue inhalers. Elevated liver enzymes - AST 95 on admission, then 23, 53. ALT 159 on admission, then 74, 90. - possibly due to course of infection, or also chronic steroid use for migraines. Pt reports using steroids for migraines that occur up to 3 times per month. - denies abdominal pain or nausea. Alk phos wnl. Will follow. Elevated TSH/hypothyroid - TSH on admission elevated to 5.3 (upper limit 4.5) - On DC: recommend recheck of TSH with PCP in 1-2 months. - continue levothyroxine Migraines - controlled. - pt normally takes naratriptan 2.5 mg with methypred 4 mg for acute headaches at home. Held for now. - Toradol with phenergen on board PRN - NSAIDS also recommended per pulm to help control pleuritic chest pain. - continue home cyclobenzaprine and doxepin - follow. PPX: Heparin (refused today's dose). Code: FULL Dispo: med/surg Continued [facility] stay due to: abnormal vital signs, multiple IV medications needed Discharge planning: home Resident Tracking Resident Involvement: Resident Care Provided Care Provided: Adult Hospital Medicine
--- NOTE | 2016-12-24 19:55 | Infectious Disease Progress Nt ---
Progress Note Date of Service Dec 24, 2016. Subjective Pt evaluation today including: conversation w/ patient, physical exam, chart review, lab review, review of studies, conversation w/ technology methodology consultant, review of inpatient medication list Patient feeling somewhat better today with decreased leg and chest pain. Remains afebrile. No other new complaints. Tolerating antibiotic without apparent difficulty. All Other Systems: Reviewed and Negative Medications Current Inpatient Medications Medications (Trade) Dose Ordered Sig/Lesli Route Start Time Stop Time Status Last Admin Dose Admin Ioversol (Optiray 320) 111 ml UD PRN IV 12/21/16 17:00 12/25/16 16:59 Acetaminophen (Tylenol Tab) 650 mg Q4H PRN PO 12/21/16 20:00 01/20/17 19:59 Al Hydrox/Mg Hydrox/Simethicone (Maalox Max Susp) 15 ml Q4H PRN PO 12/21/16 20:00 01/20/17 19:59 Magnesium Hydroxide (Milk Of Magnesia Susp) 30 ml Q12H PRN PO 12/21/16 20:00 01/20/17 19:59 Ondansetron HCl (Zofran Inj) 4 mg Q6H PRN IV 12/21/16 20:00 01/20/17 19:59 12/22/16 19:32 4 MG Nitroglycerin (Nitrostat Tab) 0.4 mg UD PRN SL 12/21/16 20:00 01/20/17 19:59 Cyclobenzaprine HCl (Flexeril Tab) 10 mg TID PO 12/21/16 21:00 01/20/17 20:59 12/24/16 16:00 10 MG Doxepin HCl (Sinequan Cap) 150 mg HS PO 12/21/16 21:00 01/20/17 20:59 12/23/16 21:00 150 MG Metoprolol Succinate (Toprol Xl Tab) 25 mg DAILY PO 12/22/16 09:00 01/21/17 08:59 12/24/16 09:11 25 MG Multivitamins (Multivitamin Tab) 1 tab DAILY PO 12/22/16 09:00 01/21/17 08:59 12/24/16 09:11 1 TAB Levetiracetam (Keppra Tab) 1,000 mg BID PO 12/21/16 22:00 01/20/17 21:59 12/24/16 09:10 1,000 MG Levothyroxine Sodium (Synthroid Tab) 150 mcg DAILYBB PO 12/22/16 06:00 01/21/17 05:59 12/24/16 05:43 150 MCG Morphine Sulfate (MoRPHine SULFATE INJ) 4 mg Q4 PRN IV 12/21/16 20:45 01/04/17 20:44 12/22/16 07:42 4 MG Ketorolac Tromethamine (Toradol Inj) 30 mg Q6H PRN IV 12/21/16 20:45 12/26/16 20:44 12/22/16 19:32 30 MG Heparin Sodium (Porcine) (Heparin Sq 5000 Unit/0.5ml) 5,000 unit Q12 SQ 12/22/16 09:00 01/21/17 08:59 12/24/16 09:16 5,000 UNIT Oxycodone/ Acetaminophen (Percocet 5-325mg Tab) 1 tab Q4H PRN PO 12/22/16 16:00 01/05/17 15:59 Oxycodone/ Acetaminophen (Percocet 5-325mg Tab) 2 tab Q4H PRN PO 12/22/16 16:00 01/05/17 15:59 Ipratropium [place] (Atrovent 0.02% 0.5MG/2.5ML Neb) 0.5 mg Q6R INH 12/23/16 09:00 01/22/17 08:59 12/24/16 07:22 0.5 MG Levalbuterol (Xopenex 1.25MG/ 0.5ML Neb) 1.25 mg Q6R INH 12/23/16 09:00 01/22/17 08:59 12/24/16 07:22 1.25 MG Cefazolin Sodium 2000 mg/Syringe 10 ml @ 2.5 mls/min Q8H IV 12/23/16 19:00 01/02/17 18:59 12/24/16 18:29 2.5 MLS/MIN Objective Vital Signs Date Time Temp Pulse Resp B/P (MAP) Pulse Ox O2 Delivery O2 Flow Rate FiO2 12/24/16 15:40 36.7 97 18 131/82 (98) 97 Room Air 12/24/16 15:08 90 12 136/75 (95) 95 Room Air 12/24/16 15:00 95 12 147/71 (96) 94 Room Air 12/24/16 14:48 96 10 148/51 (83) 94 Room Air 12/24/16 14:40 102 12 167/78 (107) 99 Nasal Cannula 2 12/24/16 14:39 Nasal Cannula 2 12/24/16 14:35 107 10 143/77 98 Nasal Cannula 2 12/24/16 14:30 112 16 151/75 97 Nasal Cannula 2 12/24/16 14:25 106 18 151/87 100 Nasal Cannula 2 12/24/16 14:20 102 17 140/69 100 Nasal Cannula 2 12/24/16 14:18 105 21 152/63 100 Nasal Cannula 2 12/24/16 13:58 97 14 150/78 99 Room Air 12/24/16 11:24 36.3 108 20 139/88 (105) 96 Room Air 12/24/16 11:24 Room Air 12/24/16 09:10 Room Air 12/24/16 07:35 36.8 112 20 121/85 (97) 95 Room Air 12/24/16 07:24 100 14 95 Room Air 12/24/16 01:27 112 16 95 Room Air 12/23/16 23:55 Room Air 12/23/16 23:20 37.3 103 18 143/89 (107) 100 Room Air 12/23/16 20:01 102 14 97 Room Air Physical Exam General Appearance: WD/WN, no apparent distress Eyes: normal inspection, sclerae normal ENT: normal ENT inspection, pharynx normal Neck: supple, no adenopathy, trachea midline Respiratory/Chest: lungs clear, normal breath sounds, no respiratory distress Cardiovascular: regular rate, rhythm, no gallop, no murmur Abdomen: normal bowel sounds, non tender, soft, no organomegaly Extremities: no calf tenderness, normal capillary refill Neurologic/Psychiatric: alert, oriented x 3 Skin: normal color, no rash, + pertinent finding (right leg dressing intact) Lymphatic: no adenopathy Laboratory Results Last 24 Hours Test 12/24/16 07:04 White Blood Count 5.96 K/uL Red Blood Count 3.65 M/uL Hemoglobin 11.3 g/dL Hematocrit 32.9 % Mean Corpuscular Volume 90.1 fL Mean Corpuscular Hemoglobin 31.0 pg Mean Corpuscular Hemoglobin Concent 34.3 g/dl Platelet Count 171 K/uL Mean Platelet Volume 9.0 fL Neutrophils (%) (Auto) 63.4 % Lymphocytes (%) (Auto) 24.0 % Monocytes (%) (Auto) 8.2 % Eosinophils (%) (Auto) 3.4 % Basophils (%) (Auto) 0.7 % Neutrophils # (Auto) 3.78 K/uL Lymphocytes # (Auto) 1.43 K/uL Monocytes # (Auto) 0.49 K/uL Eosinophils # (Auto) 0.20 K/uL Basophils # (Auto) 0.04 K/uL RDW Standard Deviation 43.5 fL RDW Coefficient of Variation 13.1 % Immature Granulocyte % (Auto) 0.3 % Immature Granulocyte # (Auto) 0.02 K/uL Sodium Level 143 mmol/L Potassium Level 4.0 mmol/L Chloride Level 111 mmol/L Carbon Dioxide Level 25 mmol/L Anion Gap 7.0 mmol/L Blood Urea Nitrogen 8 mg/dl Creatinine 0.74 mg/dl Est Creatinine Clear Calc Drug Dose 121.4 ml/min Estimated GFR () 116.6 Estimated GFR (Non- 100.6 BUN/Creatinine Ratio 10.6 Random Glucose 85 mg/dl Calcium Level 8.7 mg/dl Total Bilirubin 0.3 mg/dl Aspartate Amino Transf (AST/SGOT) 53 U/L Alanine Aminotransferase (ALT/SGPT) 90 U/L Alkaline Phosphatase 101 U/L Total Protein 6.5 gm/dl Albumin 2.8 gm/dl Globulin 3.7 gm/dl Albumin/Globulin Ratio 0.8 Assessment and Plan 41-year-old female with right lower extremity abscess with Staph aureus, methicillin sensitive, with what appears to be septic pulmonary emboli despite negative blood cultures. Patient changed to IV cefazolin. TANMAY negative for vegetation. Recommend transition to oral Abx tomorrow with cephalexin 500 mg qid. Likely 2-3 weeks depending on clinical response. Will follow.
[2016-12-24] MEDS: DOXEPIN HCL 75 MG CAP PO SCH (22:12)
[2016-12-25] MEDS: LEVALBUTEROL 1.25MG/0.5ML NEB INH SCH ×3 (02:10→14:28)
[2016-12-25] MEDS: IPRATROPIUM BROMIDE NEB SOLN 0.02% 2.5 ML VIAL INH SCH ×3 (02:10→14:28)
[2016-12-25] MEDS: CEFAZOLIN IV 2,000 MG in SYRINGE 0 ML IV SCH (03:19)
[2016-12-25] MEDS: ONDANSETRON INJ 2 MG/ML 2 ML VIAL IV PRN (03:27)
[2016-12-25] MEDS: LEVOTHYROXINE 150 MCG TAB PO SCH (06:13)
[2016-12-25] MEDS: KETOROLAC TROMETHAMINE 30 MG/ML VIAL IV PRN (06:18)
[2016-12-25 07:57] VITALS: BP 152/90; PULSE 102; TEMP 36.7; O2SAT 95
[2016-12-25 07:58] LABS: BASO % 0.6 %; BASO ABS # 0.04 K/uL (0-0.2); COMPLETE YES; EOS % 3.9 %; IG% 0.3 %; LYMPH % 24.8 %; LYMPH ABS # 1.61 K/uL (1.2-3.4); MEAN CELL VOLUME 88.8 fL (80-100); MEAN CORPUSCULAR HEMOGLOBIN 30.5 pg (25-34); MEAN CORPUSCULAR HGB CONC 34.4 g/dl (32-36); MEAN PLATELET VOLUME 8.4 fL (7.4-10.4); MONO % 7.1 %; NEUT % 63.3 %; PLATELET COUNT 174 K/uL (130-400); RED BLOOD COUNT 3.83 M/uL (4.2-5.4); WHITE BLOOD COUNT 6.49 K/uL (4.8-10.8)
[2016-12-25 08:28] LABS: BUN/CREATININE RATIO 12.6 (10-20); CALCIUM 8.8 mg/dl (8.5-10.1); CREATININE 0.65 mg/dl (0.60-1.20)
[2016-12-25 08:31] LABS: ALB/GLOB RATIO 0.7 (0.9-2)
[2016-12-25 08:34] VITALS: O2SAT 95
[2016-12-25] MEDS: HEPARIN SOD 5000 UNIT/0.5 ML CARP SQ SCH (09:00)
--- NOTE | 2016-12-25 09:29 | Surgery Progress Note ---
Surgery Progress Note Date of Service Dec 25, 2016. Subjective Doing well. Feeling much improved. Wound vac working. Objective Vital Signs: Date Time Temp Pulse Resp B/P (MAP) Pulse Ox O2 Delivery O2 Flow Rate FiO2 12/25/16 08:34 95 Room Air 12/25/16 07:57 36.7 102 16 152/90 (110) 95 Room Air 12/24/16 23:00 37.2 109 16 145/97 (113) 97 Room Air 12/24/16 21:30 Room Air 12/24/16 15:40 36.7 97 18 131/82 (98) 97 Room Air 12/24/16 15:08 90 12 136/75 (95) 95 Room Air 12/24/16 15:00 95 12 147/71 (96) 94 Room Air 12/24/16 14:48 96 10 148/51 (83) 94 Room Air 12/24/16 14:40 102 12 167/78 (107) 99 Nasal Cannula 2 12/24/16 14:39 Nasal Cannula 2 12/24/16 14:35 107 10 143/77 98 Nasal Cannula 2 12/24/16 14:30 112 16 151/75 97 Nasal Cannula 2 12/24/16 14:25 106 18 151/87 100 Nasal Cannula 2 12/24/16 14:20 102 17 140/69 100 Nasal Cannula 2 12/24/16 14:18 105 21 152/63 100 Nasal Cannula 2 12/24/16 13:58 97 14 150/78 99 Room Air 12/24/16 11:24 36.3 108 20 139/88 (105) 96 Room Air 12/24/16 11:24 Room Air Extremities: + pertinent finding (wound vac in place, less swelling and erythema) Laboratory Results: Results Past 24 Hours Test 12/25/16 07:36 Range/Units White Blood Count 6.49 4.8-10.8 K/uL Red Blood Count 3.83 4.2-5.4 M/uL Hemoglobin 11.7 12.0-16.0 g/dL Hematocrit 34.0 37-47 % Mean Corpuscular Volume 88.8 80-100 fL Mean Corpuscular Hemoglobin 30.5 25-34 pg Mean Corpuscular Hemoglobin Concent 34.4 32-36 g/dl Platelet Count 174 130-400 K/uL Mean Platelet Volume 8.4 7.4-10.4 fL Neutrophils (%) (Auto) 63.3 % Lymphocytes (%) (Auto) 24.8 % Monocytes (%) (Auto) 7.1 % Eosinophils (%) (Auto) 3.9 % Basophils (%) (Auto) 0.6 % Neutrophils # (Auto) 4.11 1.4-6.5 K/uL Lymphocytes # (Auto) 1.61 1.2-3.4 K/uL Monocytes # (Auto) 0.46 0.11-0.59 K/uL Eosinophils # (Auto) 0.25 0-0.5 K/uL Basophils # (Auto) 0.04 0-0.2 K/uL RDW Standard Deviation 42.0 36.4-46.3 fL RDW Coefficient of Variation 12.9 11.5-14.5 % Immature Granulocyte % (Auto) 0.3 % Immature Granulocyte # (Auto) 0.02 0.00-0.02 K/uL Sodium Level 141 136-145 mmol/L Potassium Level 4.0 3.5-5.1 mmol/L Chloride Level 110 98-107 mmol/L Carbon Dioxide Level 22 21-32 mmol/L Anion Gap 10.0 3-11 mmol/L Blood Urea Nitrogen 8 7-18 mg/dl Creatinine 0.65 0.60-1.20 mg/dl Est Creatinine Clear Calc Drug Dose 138.2 ml/min Estimated GFR () 127.8 Estimated GFR (Non- 110.3 BUN/Creatinine Ratio 12.6 10-20 Random Glucose 85 70-99 mg/dl Calcium Level 8.8 8.5-10.1 mg/dl Total Bilirubin 0.4 0.2-1 mg/dl Aspartate Amino Transf (AST/SGOT) 78 15-37 U/L Alanine Aminotransferase (ALT/SGPT) 99 12-78 U/L Alkaline Phosphatase 100 45-117 U/L Total Protein 6.9 6.4-8.2 gm/dl Albumin 2.9 3.4-5.0 gm/dl Globulin 4.0 2.5-4.0 gm/dl Albumin/Globulin Ratio 0.7 0.9-2 Assessment & Plan Doing well s/p debridement of right lower extremity in setting of septic pulmonary emboli. Pt states she will be discharged today. She should have f/u scheduled with the wound clinic for wound assessment/ treatment.
[2016-12-25] MEDS: METOPROLOL SUCC 25MG EXT REL TAB PO SCH (09:44)
[2016-12-25] MEDS: MULTIVITAMIN TAB PO SCH (09:44)
[2016-12-25] MEDS: CEPHALEXIN MONOHYDRATE 500 MG CAP PO SCH ×2 (09:45→13:35)
[2016-12-25] MEDS: LEVETIRACETAM 500 MG TAB PO SCH (09:45)
[2016-12-25] MEDS: CYCLOBENZAPRINE HCL 10 MG TAB PO SCH (10:16)
[2016-12-25] MEDS ORDERED: KFL500 PO (11:42)
--- NOTE | 2016-12-25 11:51 | Discharge Instructions ---
Discharge Instructions Date of Service Dec 25, 2016. Admission Reason for Admission: Cellulitis Of R Lower Extremity, Septic Embolism Discharge Discharge Diagnosis / Problem: Cellulitis of R Lower Extremity, Abscess, Septic Emboli Discharge Goals Goal(s): Decrease discomfort, Improve function, Increase independence, Improve disease control, Learn about illness, Diagnostic testing, Therapeutic intervention, Prevent Disease Progression Activity Recommendations Activity Limitations: as noted below Lifting Limitations: gradually increase as tolerated Exercise/Sports Limitations: gradually increase as tolerated May Resume Sexual Activity: when tolerated Shower/Bathe: keep incision dry . Instructions / Follow-Up Instructions / Follow-Up You were admitted for an acute infection of the skin and tissue in your right lower leg. On imaging of your chest we found what are called 'septic emboli' in your lungs that we believe caused you to have pain while breathing deeply there , which has improved while on antibiotics. As our lung function is closely tied to our heart function, we also made sure to check your heart for any signs of infection there as well, and found none. We treated you with IV antibiotics, and you are going home on a tablet form, now that your infection is healing. A wound vac device is in place to continue the healing progress, directions below: Wound Discharge Instructions * [facility] WOUND VAC TO ANTERIOR,RIGHT, LOWER LEG WOUND. IRRIGATE WOUND WITH SALINE USING 35CC SYRINGE AND 18G BLUNT NEEDLE. PAT DRY. APPLY SKIN PREP TO WOUND PERIPHERY. ALLOW TO DRY. APPLY DRAPE TO PROTECT PERIPHERY. PLACE BLACK FOAM INTO WOUND. SET VAC TO -125MMHG CONTINUOUS MODE. CHANGE EVERY WEDNESDAY, WEDNESDAY AND WEDNESDAY. IF UNABLE TO MAINTAIN VAC, REMOVE ENTIRE DRESSING. FILL WOUND WITH AQUACEL AG AND PLACE OPTIFOAM OVER. CONTACT PHYSCIAN Appointments have been set up for you to see your primary care physician within a week of discharge from the hospital. Please discuss with him your hospital stay, as well as your elevated thyroid levels, as this may indicate a need to recheck this and adjust your medications for your thyroid. An appointment has also been arranged with your infectious disease doctor, Dr. Johnson in 1-2 weeks. Be sure to take your antibiotic medicine (cephalexin), wound care/clinic, as prescribed and keep your appointments. Thank you for allowing us to participate in your care. Current Hospital Diet Patient's current hospital diet: Regular Diet Discharge Diet Recommended Diet: Regular Diet Procedures Procedures Performed: Debridement of right lower extremity infection Pending Studies Studies pending at discharge: no Medical Emergencies . Who to Call and When: Medical Emergencies: If at any time you feel your situation is an emergency, please call 911 immediately. . Non-Emergent Contact Non-Emergency issues call your: Primary Care Provider Call Non-Emergent contact if: you have a fever, temperature is above 100.5, your pain is not controlled, your pain is worsening, wound has increased drainage, wound has increased redness, wound has increased pain . . "Provider Documentation" section prepared by Jaelyn Root. . VTE Core Measure Inpt VTE Proph given/why not?: Unfractionated heparin SQ
[2016-12-25 12:06] VITALS: BP 140/86; PULSE 97; TEMP 36.8; O2SAT 94
[2016-12-25 13:10] VITALS: BP 140/86; PULSE 97; TEMP 36.8; O2SAT 94
--- NOTE | 2016-12-25 14:30 | Infectious Disease Progress Nt ---
Progress Note Date of Service Dec 25, 2016. Subjective Pt evaluation today including: conversation w/ patient, physical exam, chart review, lab review, review of studies, conversation w/ sales operations consultant, review of inpatient medication list `No new complaints today. Pain controlled. Remains afebrile. All Other Systems: Reviewed and Negative Medications Current Inpatient Medications Medications (Trade) Dose Ordered Sig/Lesli Route Start Time Stop Time Status Last Admin Dose Admin Ioversol (Optiray 320) 111 ml UD PRN IV 12/21/16 17:00 12/25/16 16:59 Acetaminophen (Tylenol Tab) 650 mg Q4H PRN PO 12/21/16 20:00 01/20/17 19:59 Al Hydrox/Mg Hydrox/Simethicone (Maalox Max Susp) 15 ml Q4H PRN PO 12/21/16 20:00 01/20/17 19:59 Magnesium Hydroxide (Milk Of Magnesia Susp) 30 ml Q12H PRN PO 12/21/16 20:00 01/20/17 19:59 Ondansetron HCl (Zofran Inj) 4 mg Q6H PRN IV 12/21/16 20:00 01/20/17 19:59 12/25/16 03:27 4 MG Nitroglycerin (Nitrostat Tab) 0.4 mg UD PRN SL 12/21/16 20:00 01/20/17 19:59 Cyclobenzaprine HCl (Flexeril Tab) 10 mg TID PO 12/21/16 21:00 01/20/17 20:59 12/25/16 10:16 10 MG Doxepin HCl (Sinequan Cap) 150 mg HS PO 12/21/16 21:00 01/20/17 20:59 12/24/16 22:12 150 MG Metoprolol Succinate (Toprol Xl Tab) 25 mg DAILY PO 12/22/16 09:00 01/21/17 08:59 12/25/16 09:44 25 MG Multivitamins (Multivitamin Tab) 1 tab DAILY PO 12/22/16 09:00 01/21/17 08:59 12/25/16 09:44 1 TAB Levetiracetam (Keppra Tab) 1,000 mg BID PO 12/21/16 22:00 01/20/17 21:59 12/25/16 09:45 1,000 MG Levothyroxine Sodium (Synthroid Tab) 150 mcg DAILYBB PO 12/22/16 06:00 01/21/17 05:59 12/25/16 06:13 150 MCG Morphine Sulfate (MoRPHine SULFATE INJ) 4 mg Q4 PRN IV 12/21/16 20:45 01/04/17 20:44 12/22/16 07:42 4 MG Ketorolac Tromethamine (Toradol Inj) 30 mg Q6H PRN IV 12/21/16 20:45 12/26/16 20:44 12/25/16 06:18 30 MG Heparin Sodium (Porcine) (Heparin Sq 5000 Unit/0.5ml) 5,000 unit Q12 SQ 12/22/16 09:00 01/21/17 08:59 12/24/16 22:11 5,000 UNIT Oxycodone/ Acetaminophen (Percocet 5-325mg Tab) 1 tab Q4H PRN PO 12/22/16 16:00 01/05/17 15:59 Oxycodone/ Acetaminophen (Percocet 5-325mg Tab) 2 tab Q4H PRN PO 12/22/16 16:00 01/05/17 15:59 Ipratropium Bloomingrose (Atrovent 0.02% 0.5MG/2.5ML Neb) 0.5 mg Q6R INH 12/23/16 09:00 01/22/17 08:59 12/24/16 07:22 0.5 MG Levalbuterol (Xopenex 1.25MG/ 0.5ML Neb) 1.25 mg Q6R INH 12/23/16 09:00 01/22/17 08:59 12/24/16 07:22 1.25 MG Cephalexin Monohydrate (Keflex Cap) 500 mg QID PO 12/25/16 09:00 01/04/17 08:59 12/25/16 13:35 500 MG Objective Vital Signs Date Time Temp Pulse Resp B/P (MAP) Pulse Ox O2 Delivery O2 Flow Rate FiO2 12/25/16 13:10 36.8 97 18 94 Room Air 12/25/16 12:06 36.8 97 18 140/86 (104) 94 Room Air 12/25/16 08:34 95 Room Air 12/25/16 08:00 Room Air 12/25/16 07:57 36.7 102 16 152/90 (110) 95 Room Air 12/24/16 23:00 37.2 109 16 145/97 (113) 97 Room Air 12/24/16 21:30 Room Air 12/24/16 15:40 36.7 97 18 131/82 (98) 97 Room Air 12/24/16 15:08 90 12 136/75 (95) 95 Room Air 12/24/16 15:00 95 12 147/71 (96) 94 Room Air 12/24/16 14:48 96 10 148/51 (83) 94 Room Air 12/24/16 14:40 102 12 167/78 (107) 99 Nasal Cannula 2 12/24/16 14:39 Nasal Cannula 2 12/24/16 14:35 107 10 143/77 98 Nasal Cannula 2 12/24/16 14:30 112 16 151/75 97 Nasal Cannula 2 Physical Exam General Appearance: WD/WN, no apparent distress Eyes: normal inspection, EOMI, sclerae normal ENT: normal ENT inspection, pharynx normal Neck: supple, no adenopathy, thyroid normal, trachea midline Respiratory/Chest: lungs clear, normal breath sounds, no respiratory distress Cardiovascular: regular rate, rhythm, no gallop, no murmur Abdomen: normal bowel sounds, non tender, soft, no organomegaly Extremities: no calf tenderness, normal capillary refill Neurologic/Psychiatric: alert, oriented x 3 Skin: normal color, no rash, + pertinent finding (wound VAC in place) Lymphatic: no adenopathy Laboratory Results Last 24 Hours Test 12/25/16 07:36 White Blood Count 6.49 K/uL Red Blood Count 3.83 M/uL Hemoglobin 11.7 g/dL Hematocrit 34.0 % Mean Corpuscular Volume 88.8 fL Mean Corpuscular Hemoglobin 30.5 pg Mean Corpuscular Hemoglobin Concent 34.4 g/dl Platelet Count 174 K/uL Mean Platelet Volume 8.4 fL Neutrophils (%) (Auto) 63.3 % Lymphocytes (%) (Auto) 24.8 % Monocytes (%) (Auto) 7.1 % Eosinophils (%) (Auto) 3.9 % Basophils (%) (Auto) 0.6 % Neutrophils # (Auto) 4.11 K/uL Lymphocytes # (Auto) 1.61 K/uL Monocytes # (Auto) 0.46 K/uL Eosinophils # (Auto) 0.25 K/uL Basophils # (Auto) 0.04 K/uL RDW Standard Deviation 42.0 fL RDW Coefficient of Variation 12.9 % Immature Granulocyte % (Auto) 0.3 % Immature Granulocyte # (Auto) 0.02 K/uL Sodium Level 141 mmol/L Potassium Level 4.0 mmol/L Chloride Level 110 mmol/L Carbon Dioxide Level 22 mmol/L Anion Gap 10.0 mmol/L Blood Urea Nitrogen 8 mg/dl Creatinine 0.65 mg/dl Est Creatinine Clear Calc Drug Dose 138.2 ml/min Estimated GFR () 127.8 Estimated GFR (Non- 110.3 BUN/Creatinine Ratio 12.6 Random Glucose 85 mg/dl Calcium Level 8.8 mg/dl Total Bilirubin 0.4 mg/dl Aspartate Amino Transf (AST/SGOT) 78 U/L Alanine Aminotransferase (ALT/SGPT) 99 U/L Alkaline Phosphatase 100 U/L Total Protein 6.9 gm/dl Albumin 2.9 gm/dl Globulin 4.0 gm/dl Albumin/Globulin Ratio 0.7 Assessment and Plan 41-year-old female with right lower extremity abscess with Staph aureus, methicillin sensitive, with what appears to be septic pulmonary emboli despite negative blood cultures. TANMAY negative for vegetation. Transitioned to oral Abx with cephalexin 500 mg qid. Likely 2-3 weeks depending on clinical response.
--- NOTE | 2016-12-26 12:39 | Discharge Summary ---
Discharge Summary Date of Service Dec 26, 2016. Discharge Summary Admission Date: Dec 21, 2016 at 20:12 Discharge Date: Dec 25, 2016 Discharge Disposition: Home with services Principal Diagnosis: Cellulitis of Right Lower Extremity, Septic Emboli Problems/Secondary Diagnoses: (1) Migraines Status: Chronic Immunizations: Have You Had Influenza Vaccine: Unknown History of Tetanus Vaccine?: Unknown History of Pneumococcal: Unknown History of Hepatitis B Vaccine: Unknown Medication Reconciliation New Medications: Cephalexin Monohydrate (Cephalexin) 500 Mg Cap 500 MG PO QID for 21 Days, #84 CAP Continued Medications: Cyclobenzaprine HCl (Cyclobenzaprine HCl) 10 Mg Tab 1 TAB PO TID for PRN Doxepin Hcl (Doxepin) 150 Mg Cap 1 CAP PO HS Levetiracetam (Levetiracetam) 1,000 Mg Tab 1 TAB PO BID Levothyroxine Sodium (Tirosint) 150 Mcg Cap 1 CAP PO DAILY Metoprolol Succinate (Metoprolol Succinate ER) 25 Mg Tabcr 1 TAB PO DAILY Multivitamin (Multivitamin) Tab 1 TAB PO DAILY, TAB Discontinued Medications: Sulfa/Trimethoprim (Bactrim Ds 800MG/160MG) Tab 1 TAB PO BID for 10 Days, #20 TAB Discharge Exam Review of Systems: Constitutional: No fever, No chills, No sweats Respiratory: + problem reported (deep inspiration or sneezing pt reports discomfort in RT chest. Otherwise, no pain.), No cough, No sputum, No wheezing, No shortness of breath, No dyspnea on exertion, No dyspnea at rest Cardiovascular: No orthopnea, No edema, No palpitations Abdomen: No pain, No nausea, No vomiting, No diarrhea, No constipation Physical Exam: General Appearance: WD/WN, no apparent distress Eyes: normal inspection, EOMI Respiratory/Chest: chest non-tender, lungs clear, normal breath sounds, no respiratory distress, no accessory muscle use Cardiovascular: no edema, no gallop, no JVD, no murmur, + pertinent finding (tachycardia present) Abdomen / GI: normal bowel sounds, non tender, soft Extremities: no calf tenderness, no pedal edema, + pertinent finding (wound vac in tact) Skin: normal color, warm/dry, no rash Hospital Course Reason for admission: Ms. Whitaker is a 41 year old female admitted here for abscess of the right lower extremity and pleuritic chest pain. Summary/Course: 12/21/16 - 12/25/16. Patient's symptoms developed after having taken a hay ride and noticed what looked like an insect bite on her leg, resultant redness, for which she was seen and given Bactrim in an outpatient setting. Over the next few days, the area worsened, and after a full day of work, while on her way to her car patient felt exquisite pain in her right posterior chest area, exacerbated by deep inspiration. She had her drive her home and then to hospital. Here , wound was incised and drained, cultures grew methicillin sensitive staph aureus. On chest imaging, pt was found to have what was suspicious for septic emboli, and we treated her for this and pneumonitis with IV antibiotics. Infectious disease and wound care were consulted, as well as pulmonology and cardiology to investigate the septic emboli and possible cardiac vegetations. It appears her tachycardia is a chronic condition for which she is seen by Dr. Contreras in cardiology and treated with low dose metoprolol. On cardiac imaging, there were no evidence of vegetations or other abnormalities. With empiric treatment, pt's chest pain symptoms showed improvement. Along with portable wound vac in place, pt was sent home on PO antibiotics to be taken a minimum of 2 weeks, and follow up scheduled with infectious disease ( Dr. Johnson) and wound care. Due to abnormal CT of the chest, follow up CT scan is recommended in 2-3 months to document resolution of nodules. Of note, TSH was found to be elevated at 5.3 , free T4 wnl 1.2, as well as moderately elevated liver enzymes. Primary care could consider follow up CMP and TSH labs in 1-2 months. Further details of Ms. Whitaker's hospital course are below. We appreciate the opportunity to participate in her care. Labs blood cultures neg for growth wound cultures grew methicillin sensitive staph aureus Lyme negative Imaging: CT angio chest: 1. There is no evidence of pulmonary embolus in the main, lobar, or segmental pulmonary arteries. 2. There are foci of irregular nodularity scattered throughout both lungs as above. The largest is seen in the right middle lobe and measures 1.7 cm, and contains central cavitation. This likely represents an infectious/inflammatory pneumonitis. Differential considerations include septic emboli, or much less likely vasculitis or neoplasm. Clinical correlation will be essential. Follow-up CT scan in 2-3 months time is recommended to document resolution. 3. There are trace pleural effusions. 4. No mediastinal or hilar adenopathy is seen. TANMAY: 1. There is no vegetation involving the tricuspid valve 2. No obvious vegetation involving the pulmonic valve although visualization was difficult and a small lesion could not be definitively excluded 3. No aortic or mitral vegetations 4. Heart within normal limits in structure and function. No evidence of thrombus. Abscess of RT LE 2/2 to possible insect bite, unknown - Wound cx + staph, methicillin sensitive. Lyme negative. Blood cx: NGTD. - I&D done, wound packed, now with wound vac. Clinical improvement over course of stay, swelling decreased, erythema receded almost completely. - Echo done on admission showed EF 50-55% with no WMA. Cardio consulted. - TANMAY performed show no vegetations. - Antibiotic treatment includes: Received IV Vanc 1 gm x1, and 1.25 gm x 5. Received Zosyn IV 4.5 gm x 1, and 3.375 gm x 6. Switched to Cefazolin IV, 2gm x 3. Sent home on Cephalexin PO to be taken 2-3 weeks, depending on clinical course. Follow up scheduled with Dr. Johnson. - Wound care to continue, education/instructions also given to patient. Pneumonitis/pleuritic chest pain - CT angio found foci of irregular nodularity suggestive of septic emboli, though on differential includes vasculitis or neoplasm. - On DC: recommend follow up CT scan in 2-3 months to document resolution of nodules. - has received NSAIDS (toradol) regimen for acute migraine. - Continue inhalers. Elevated liver enzymes - AST 95 on admission, then 23, 53. ALT 159 on admission, then 74, 90. - possibly due to course of infection, or also chronic steroid use for migraines. Pt reports using steroids for migraines that occur up to 3 times per month. - denies abdominal pain or nausea. Alk phos wnl. Elevated TSH/hypothyroid - TSH on admission elevated to 5.3 (upper limit 4.5) - On DC: recommend recheck of TSH with PCP in 1-2 months. - continue levothyroxine Migraines - controlled. - pt normally takes naratriptan 2.5 mg with methypred 4 mg for acute headaches at home. Held for now. - Toradol with phenergen on board PRN - NSAIDS also recommended per pulm to help control pleuritic chest pain. - continue home cyclobenzaprine and doxepin Total Time Spent: Greater than 30 minutes This includes examination of the patient, discharge planning, medication reconciliation, and communication with other providers. Discharge Instructions Please refer to the electronic Patient Visit Report (Discharge Instructions) for additional information. Additional Copies To Mely Vázquez, C.R.N.P. Resident Tracking Resident Involvement: Resident Care Provided Care Provided: [facility]
--- NOTE | 2016-12-31 13:00 | Cardiology Consultation ---
Cardiology Consultation Date of Service Dec 31, 2016. Cardiology Consultation The patient was not seen during her hospitalization.
--- NOTE | 2017-01-05 17:54 | OPERATIVE REPORT ---
DATE OF OPERATION: 12/22/2016 ADDENDUM: DESCRIPTION OF PROCEDURE: Both skin and subcutaneous tissues were debrided down to but not including fascia. Total size of debridement was approximately 3 x 3 cm. I attest to the content of the Intraoperative Record and any orders documented therein. Any exception s are noted below.
[2017-01-06] MEDS ORDERED: KFL500 PO (09:43)
== END 2016-12-25 13:45 | disposition home health service (06) | DRG 602 ==
LOC: C.EDB 16:24 → C.2T 20:12 → ENRESERV 20:18 → CANRESERV 12-23 11:01 → EDBEDREQ 12-23 11:38 → EDBEDREQSVC 12-23 11:38 → ENRESERV 12-23 12:23 → C.MSN 12-23 13:41
PROVIDERS: ADMIT Internal Medicine; ATTEND Hospitalist
PROC: 0HBKXZX Excision of Right Lower Leg Skin, External Approach, Diagnostic (ICD-10-PCS; principal; 2016-12-22 08:45)
DX: L03.115 Cellulitis of right lower limb (principal); I26.90 Septic pulmonary embolism without acute cor pulmonale; J18.9 Pneumonia, unspecified organism; I96 Gangrene, not elsewhere classified; B95.61 Methicillin susceptible Staphylococcus aureus infection as the cause of diseases classified elsewhere; L02.415 Cutaneous abscess of right lower limb; S80.861A Insect bite (nonvenomous), right lower leg, initial encounter; R00.0 Tachycardia, unspecified; G43.909 Migraine, unspecified, not intractable, without status migrainosus; R74.8 Abnormal levels of other serum enzymes; T38.0X5A Adverse effect of glucocorticoids and synthetic analogues, initial encounter; E03.9 Hypothyroidism, unspecified; I10 Essential (primary) hypertension; K21.9 Gastro-esophageal reflux disease without esophagitis; Z79.899 Other long term (current) drug therapy; Z82.49 Family history of ischemic heart disease and other diseases of the circulatory system; Z83.3 Family history of diabetes mellitus; Z80.8 Family history of malignant neoplasm of other organs or systems; Z83.2 Family history of diseases of the blood and blood-forming organs and certain disorders involving the immune mechanism; W57.XXXA Bitten or stung by nonvenomous insect and other nonvenomous arthropods, initial encounter; Y99.8 Other external cause status

== ENCOUNTER → 2017-02-23 | Outpatient (CLI) | payer OTHER ==
[~2017-02-23] MED LIST changes: +DOXE150C PO; +FLX10 PO; -LANS30CA12 PO; +LEVE100021 PO; -LIOT1TAB10 PO; -MEDR150I IM; -METO25TA3 PO; -SNQ50 PO; -SULF800T23 PO; +TPRSR/25 PO
[2017-02-23 15:19] LABS: THYROID STIMULATING HORMONE 7.47 uIu/ml (0.300-4.500)
== END | disposition home or self-care (01) ==
LOC: C.LAB 13:27
PROVIDERS: ATTEND Nurse Practitioner
DX: E03.9 Hypothyroidism, unspecified (principal)

== ENCOUNTER → 2017-03-03 | Outpatient (CLI) | payer OTHER | END | disposition home or self-care (01) | LOC: C.PAPS 10:49 | PROVIDERS: ATTEND Obstetrics & Gynecology | DX: Z01.419 Encounter for gynecological examination (general) (routine) without abnormal findings (principal) ==

== ENCOUNTER → 2017-06-15 | Outpatient (CLI) | payer OTHER ==
--- NOTE | 2017-06-15 18:04 | DIAGNOSTIC IMAGING REPORT ---
R ANKLE MIN 3 VIEWS ROUTINE, R FOOT MIN 3 VIEWS ROUTINE HISTORY: 42 years-old Female RIGHT FOOD AND ANKLE PAIN acute right foot and ankle pain COMPARISON: None available TECHNIQUE: 3 views of the right ankle and 3 views of the right foot with weightbearing FINDINGS: ANKLE: No acute fracture, dislocation, osteochondral defect or significant degenerative changes. Small plantar enthesophyte about the calcaneus. Mild circumferential soft tissue swelling about the ankle with small joint effusion. No opaque foreign body. FOOT: There is an acute obliquely oriented fracture of the mid to distal diaphyseal fifth metatarsal with mild soft tissue swelling. There is only minimal medial displacement of the distal fifth metatarsal approximately 1 cortex width. No additional acute fracture or dislocation. IMPRESSION: 1. Acute minimally displaced fracture of the mid to distal diaphyseal fifth metatarsal with mild associated soft tissue swelling. 2. Mild circumferential soft tissue swelling about the ankle with small ankle joint effusion. The above report was generated using voice recognition software. It may contain grammatical, syntax or spelling errors. Electronically signed by: Sathish Caldera M.D. 06/15/2017 6:03 PM Dictated Date/Time: 06/15/2017 6:00 PM
== END | disposition home or self-care (01) ==
LOC: C.RAD 17:12
PROVIDERS: ATTEND Podiatrist Foot & Ankle Surgery
DX: S92.351A Displaced fracture of fifth metatarsal bone, right foot, initial encounter for closed fracture (principal); S92.901A Unspecified fracture of right foot, initial encounter for closed fracture; S82.891A Other fracture of right lower leg, initial encounter for closed fracture; X58.XXXA Exposure to other specified factors, initial encounter